=== PATIENT | male | born 1950 | race Caucasian/White ===

== ENCOUNTER → 2017-01-28 | Outpatient (CLI) | payer BC ==
[~2017-01-28] MED LIST: ACET650T49 PO; ALBUAER19 INH; AMLO-114 PO; ASPCH81 PO; ASPI81TA28 PO; ATOR-26 PO; CARV25TA2 PO; CHOL100027 PO; CRG125; CRG25 PO; DICL1GEL12 TOP; ERGO1CAP41 PO; FINA5TAB PO; FURO-85 PO; INSHNI SC; INSU100I17 SC; INSUINJ SC; INSUINJ12 SQ; IRBE-37 PO; IRBE1TAB48 PO; ISOS30TA35 PO; JALYN PO; LSX20 PO; LVMI SC; METH500T37 PO; NITR0.4S UT; NORT50CA PO; NRN600 PO; NRT/50 PO; NRV/10 PO; NVLG SC; NVLNI SC; OMEP20CA59 PO; OMEP20CA9 PO; PRS5 PO; SPRIN/30 INH; TIOTCAP INH; TRAM-453 PO; VNTHFA/IN INH
[2017-01-28 12:12] LABS: HEMATOCRIT 42.5 % (42-52); MEAN CELL VOLUME 87.3 fL (80-100); MEAN CORPUSCULAR HEMOGLOBIN 29.2 pg (25-34); MEAN CORPUSCULAR HGB CONC 33.4 g/dl (32-36); MEAN PLATELET VOLUME 11.4 fL (7.4-10.4); PLATELET COUNT 146 K/uL (130-400); RED BLOOD COUNT 4.87 M/uL (4.7-6.1); WHITE BLOOD COUNT 5.16 K/uL (4.8-10.8)
[2017-01-28 12:23] LABS: URINE APPEARANCE CLEAR (CLEAR); URINE BILIRUBIN NEG (NEG); URINE COLOR YELLOW; URINE NITRITE NEG (NEG); URINE PH 5.5 (4.5-7.5); URINE SPECIFIC GRAVITY 1.015 (1.000-1.030); UROBILINOGEN NEG (NEG)
[2017-01-28 12:33] LABS: MANUAL MICROSCOPIC REQUIRED? NO; REVIEW REQ? NO
[2017-01-28 12:41] LABS: ALT/SGPT 54 U/L (12-78); BLOOD UREA NITROGEN 40 mg/dl (7-18); CALCIUM 9.1 mg/dl (8.5-10.1); CARBON DIOXIDE 20 mmol/L (21-32); CHLORIDE 104 mmol/L (98-107); GLUCOSE 209 mg/dl (70-99); PHOSPHORUS 3.2 mg/dl (2.5-4.9); POTASSIUM 4.6 mmol/L (3.5-5.1); SODIUM 137 mmol/L (136-145)
[2017-01-28 12:51] LABS: ALKALINE PHOSPHATASE 156 U/L (45-117); AST/SGOT 39 U/L (15-37)
[2017-01-28 13:04] LABS: URINE PROTIEN/CREAT RATIO 1.9 (0-0.2); URINE TOTAL PROTEIN 227.7 mg/dl (0-11.9)
[2017-01-28 13:09] LABS: ESTIMATED AVERAGE GLUCOSE 140 mg/dl; HA1C FLAG Normal (Normal)
== END | disposition home or self-care (01) ==
LOC: C.LAB 07:32
PROVIDERS: ATTEND Internal Medicine Endocrinology, Diabetes & Metabolism
DX: E78.5 Hyperlipidemia, unspecified (principal); I12.9 Hypertensive chronic kidney disease with stage 1 through stage 4 chronic kidney disease, or unspecified chronic kidney disease; R80.9 Proteinuria, unspecified; E55.9 Vitamin D deficiency, unspecified; N18.4 Chronic kidney disease, stage 4 (severe); E10.22 Type 1 diabetes mellitus with diabetic chronic kidney disease

== ENCOUNTER → 2017-02-03 | Outpatient (CLI) | payer BC ==
--- NOTE | 2017-02-03 09:45 | DIAGNOSTIC IMAGING REPORT ---
CHEST CT WITHOUT CONTRAST CT DOSE: 1258.47 mGy.cm HISTORY: R91.8 Pulmonary nodules/lesions, multiple1 [id number] TECHNIQUE: Multiaxial CT images of the chest were performed without contrast. COMPARISON: Chest CT 01/31/2016, 05/08/2014, 10/11/2012. FINDINGS: The central airways are patent. No pleural effusions. No pneumothorax. There are few bibasilar linear densities suggesting scarring or subsegmental atelectasis. No new focal lung consolidations. Stable 4 mm nodule within the left lung apex on image 38. Stable 6 mm groundglass nodule within the left upper lobe on image 80. Stable 4 mm groundglass nodule within the left upper lobe on image 96. No new pulmonary nodules. Stable cirrhotic focus within the T11 vertebral body which likely represents a bone island. No mediastinal or hilar lymphadenopathy. Hepatic steatosis. The unenhanced spleen and adrenal glands appear unremarkable. Mild calcified plaque within the normal caliber thoracic aorta. IMPRESSION: No significant change compared to the prior studies dating back to the [address] Specifically, the subcentimeter nodules within the left upper lobe are again noted. Therefore, these are likely benign. However, an additional one-year follow-up is recommended for the dominant 6 mm nodule to exclude the less likely possibility of a small adenocarcinoma in situ. Electronically signed by: Herbert Alba M.D. 02/03/2017 9:44 AM Dictated Date/Time: 02/03/2017 9:35 AM
== END | disposition home or self-care (01) ==
LOC: C.CTS 09:20
PROVIDERS: ATTEND Internal Medicine Pulmonary Disease
DX: R91.8 Other nonspecific abnormal finding of lung field (principal)

== ENCOUNTER 2017-04-02 07:49 | Observation (INO) | payer BC ==
[~2017-04-02] VITALS: Ht 185.4 cm; Wt 160.0 kg
[~2017-04-02 07:49] MED LIST changes: -ACET650T49 PO; -ASPI81TA28 PO; -ATOR-26 PO; -CARV25TA2 PO; -CHOL100027 PO; -CRG25 PO; -DICL1GEL12 TOP; -ERGO1CAP41 PO; +ERGO500011 PO; -FINA5TAB PO; -FURO-85 PO; -INSHNI SC; -IRBE1TAB48 PO; -ISOS30TA35 PO; -LVMI SC; -NITR0.4S UT; -NORT50CA PO; -NRT/50 PO; -NRV/10 PO; -NVLG SC; -NVLNI SC; -OMEP20CA9 PO; -PRS5 PO; -SPRIN/30 INH; -VNTHFA/IN INH
[2017-04-02] MEDS ORDERED: MECLIZINE HCL 25 MG TAB PO STA (08:15)
[2017-04-02 08:26] LABS: BASO % 0.6 %; BASO ABS # 0.03 K/uL (0-0.2); COMPLETE YES; EOS % 3.5 %; HEMATOCRIT 40.2 % (42-52); IG% 0.2 %; LYMPH ABS # 1.03 K/uL (1.2-3.4); MEAN CELL VOLUME 86.5 fL (80-100); MEAN CORPUSCULAR HEMOGLOBIN 28.4 pg (25-34); MEAN CORPUSCULAR HGB CONC 32.8 g/dl (32-36); MEAN PLATELET VOLUME 10.7 fL (7.4-10.4); MONO % 9.7 %; PLATELET COUNT 125 K/uL (130-400); RED BLOOD COUNT 4.65 M/uL (4.7-6.1); WHITE BLOOD COUNT 5.16 K/uL (4.8-10.8)
[2017-04-02 08:39] LABS: PROTHROMBIN TIME (PATIENT) 10.6 SECONDS (9.0-12.0)
[2017-04-02 08:50] LABS: BUN/CREATININE RATIO 12.8 (10-20); CALCIUM 9.2 mg/dl (8.5-10.1); CREATININE 2.8 mg/dl (0.60-1.40); POTASSIUM 4.8 mmol/L (3.5-5.1)
[2017-04-02] MEDS ORDERED: FINA5TAB PO (09:26)
[2017-04-02] MEDS ORDERED: FURO-85 PO (09:26)
[2017-04-02] MEDS ORDERED: CARV25TA2 PO (09:26)
[2017-04-02] MEDS ORDERED: NORT50CA PO (09:26)
[2017-04-02] MEDS ORDERED: INSHNI SC (09:26)
[2017-04-02] MEDS ORDERED: LORAZEPAM 2 MG/ML 1 ML VIAL IV SCH (09:30)
--- NOTE | 2017-04-02 11:46 | DIAGNOSTIC IMAGING REPORT ---
MRA NECK WITHOUT CONTRAST CLINICAL HISTORY: Severe dizziness. History of atherosclerosis and hyperlipidemia. COMPARISON STUDY: No previous studies for comparison. FINDINGS: Noncontrast MR angiography of the neck was performed. The study is somewhat limited from a technical standpoint. There is no evidence of carotid or vertebral artery stenosis. IMPRESSION: No evidence of hemodynamically significant carotid or vertebral artery stenosis. Electronically signed by: Francois Stoddard M.D. 04/02/2017 11:45 AM Dictated Date/Time: 04/02/2017 11:43 AM
--- NOTE | 2017-04-02 11:49 | DIAGNOSTIC IMAGING REPORT ---
MRI brain/internal auditory canals BRAIN W/O FOR IAC CLINICAL HISTORY: severe dizziness mental status change TECHNIQUE: Multi axial MRI acquisition COMPARISON STUDY: None FINDINGS: Diffusion-weighted images are negative for an acute ischemic event. Findings of moderate cerebellar as well as cerebral atrophy. Internal auditory canals are unremarkable. Sella and parasellar regions are within normal limits. Moderate chronic small vessel change of aging. Ventricular system is midline. IMPRESSION: 1. Atrophy. 2. Moderate chronic small vessel change of aging. 3. Otherwise negative study 4. Internal artery canals are normal within limitations of an unenhanced scan Electronically signed by: Tano Branch M.D. 04/02/2017 11:48 AM Dictated Date/Time: 04/02/2017 11:44 AM
[2017-04-02] MEDS ORDERED: hydrOXYzine HCL 25 MG TAB PO STA (12:17)
--- NOTE | 2017-04-02 13:12 | EMERGENCY ROOM VISIT NOTE ---
History First contact with patient: 08:07 Chief Complaint: DIZZY Stated Complaint: DIZZY, HARD TIME WALKING Nursing Triage Summary: Pt was at physical therapy yesterday morning and developed dizziness and lightheadedness Pt reports "it happens randomly" Pt dizziness comes, pt reports he has a hard time walking and keeping his balance History of Present Illness The patient is a 67 year old male who presents to the Emergency Room with complaints of dizziness. The patient states that it started yesterday when he was at physical therapy for his back. They laid him down flat and the room started spinning. He states he is now dizzy with any position. He admits to nausea but denies any vomiting. The patient denies any headache, visual changes , chest pain or chest tightness. The patient denies any heart palpitations. The patient denies any recent URI symptoms. The patient does wear hearing aids. The patient has a history of hyperlipidemia and has stents in the femoral arteries. Review of Systems 10 system review was performed and was negative unless stated otherwise history of present illness. Past Medical/Surgical History Medical Problems: (1) Diabetic peripheral neuropathy associated with type 1 diabetes mellitus (2) History of diabetic ulcer of foot (3) Loss of sensation (4) Peripheral vascular disease (5) sepsis with uti (6) Status post partial amputation of foot Social History Smoking Status: Former Smoker Alcohol Use: none Drug Use: none Marital Status: Housing Status: lives with family Occupation Status: employed Current/Historical Medications Scheduled Acetaminophen (Arthritis Pain Relief), 1 TAB PO BID Albuterol Hfa (Ventolin Hfa), 2-4 PUFFS INH Q6H Amlodipine (Norvasc), 10 MG PO DAILY Aspirin (Aspirin Ec), 81 MG PO DAILY Atorvastatin (Lipitor), 80 MG PO HS Carvedilol (Coreg), 25 MG PO BID Cholecalciferol (Vitamin D 1000 Unit), 1,000 INTER.UNIT PO DAILY Diclofenac Sodium (Topical) (Voltaren 1% Top Gel), 4 GM TOP DAILY Ergocalciferol (Vitamin D 93533 Unit), 50,000 INTER.UNIT PO MONTHLY Finasteride (Proscar), 5 MG PO DAILY Furosemide (Lasix), 20 MG PO BID Insulin Detemir (Levemir), 65 UNITS SC HS Insulin Human NPH (Humulin N), 130 UNITS SC HS Irbesartan (Avapro), 150 MG PO DAILY Isosorbide Mononitrate Ext Rel (Imdur Ext Rel), 2 TAB PO DAILY Nitroglycerin (Nitrostat), 0.4 MG UT PRN Nortriptyline (Pamelor), 50 MG PO HS Omeprazole (Prilosec), 20 MG PO DAILY Tiotropium [place] (Spiriva Handihaler), 1 CAP INH DAILY Tramadol Hcl (Ultram), 50 MG PO Q8HR PRN Miscellaneous Medications Insulin Aspart (Novolog) Allergies Coded Allergies: No Known Allergies (Verified , NONE, 04/02/17) Physical Exam Vital Signs Date Time Temp Pulse Resp B/P Pulse Ox O2 Delivery O2 Flow Rate FiO2 04/02/17 11:49 86 20 182/84 94 Room Air 04/02/17 09:50 82 18 181/79 96 Room Air 04/02/17 08:16 96 04/02/17 07:54 36.7 82 20 165/75 96 Room Air Physical Exam GENERAL: Obese 67-year-old male appears in no acute distress. MENTAL STATUS: Alert and oriented 3. EYES: PERRLA. EOMs intact. EARS: Canals with hearing aids in place. NECK: Supple, no lymphadenopathy noted. No carotid bruits noted. LUNGS: Clear auscultation without wheezes rales or rhonchi. CARDIAC: Regular rate and rhythm without murmur. Pulses is full and equal throughout. ABDOMEN: Positive bowel sounds all 4 quadrants. Soft, nontender to palpation without organomegaly or masses. NEURO:Cranial nerves two through 12 intact. Cerebellar function intact with [id number]. Fine motor intact with alternating finger motions. Medical Decision & Procedures ER Provider Diagnostic Interpretation: MRI brain/internal auditory canals BRAIN W/O FOR IAC CLINICAL HISTORY: severe dizziness mental status change TECHNIQUE: Multi axial MRI acquisition COMPARISON STUDY: None FINDINGS: Diffusion-weighted images are negative for an acute ischemic event. Findings of moderate cerebellar as well as cerebral atrophy. Internal auditory canals are unremarkable. Sella and parasellar regions are within normal limits. Moderate chronic small vessel change of aging. Ventricular system is midline. IMPRESSION: 1. Atrophy. 2. Moderate chronic small vessel change of aging. 3. Otherwise negative study 4. Internal artery canals are normal within limitations of an unenhanced scan MRA NECK WITHOUT CONTRAST CLINICAL HISTORY: Severe dizziness. History of atherosclerosis and hyperlipidemia. COMPARISON STUDY: No previous studies for comparison. FINDINGS: Noncontrast MR angiography of the neck was performed. The study is somewhat limited from a technical standpoint. There is no evidence of carotid or vertebral artery stenosis. IMPRESSION: No evidence of hemodynamically significant carotid or vertebral artery stenosis. Electronically signed by: Francois Stoddard M.D. 04/02/2017 11:45 AM Dictated Date/Time: 04/02/2017 11:43 AM Laboratory Results 04/02/17 08:10 Red Blood Count 4.65, Mean Corpuscular Volume 86.5, Mean Corpuscular Hemoglobin 28.4, Mean Corpuscular Hemoglobin Concent 32.8, Mean Platelet Volume 10.7, Neutrophils (%) (Auto) 66.0, Lymphocytes (%) (Auto) 20.0, Monocytes (%) (Auto) 9.7, Eosinophils (%) (Auto) 3.5, Basophils (%) (Auto) 0.6, Neutrophils # (Auto) 3.41, Lymphocytes # (Auto) 1.03, Monocytes # (Auto) 0.50, Eosinophils # (Auto) 0.18, Basophils # (Auto) 0.03 04/02/17 08:10 Test 04/02/17 08:10 White Blood Count 5.16 K/uL (4.8-10.8) Red Blood Count 4.65 M/uL (4.7-6.1) Hemoglobin 13.2 g/dL (14.0-18.0) Hematocrit 40.2 % (42-52) Mean Corpuscular Volume 86.5 fL (80-100) Mean Corpuscular Hemoglobin 28.4 pg (25-34) Mean Corpuscular Hemoglobin Concent 32.8 g/dl (32-36) Platelet Count 125 K/uL (130-400) Mean Platelet Volume 10.7 fL (7.4-10.4) Neutrophils (%) (Auto) 66.0 % Lymphocytes (%) (Auto) 20.0 % Monocytes (%) (Auto) 9.7 % Eosinophils (%) (Auto) 3.5 % Basophils (%) (Auto) 0.6 % Neutrophils # (Auto) 3.41 K/uL (1.4-6.5) Lymphocytes # (Auto) 1.03 K/uL (1.2-3.4) Monocytes # (Auto) 0.50 K/uL (0.11-0.59) Eosinophils # (Auto) 0.18 K/uL (0-0.5) Basophils # (Auto) 0.03 K/uL (0-0.2) RDW Standard Deviation 44.2 fL (36.4-46.3) RDW Coefficient of Variation 14.1 % (11.5-14.5) Immature Granulocyte % (Auto) 0.2 % Immature Granulocyte # (Auto) 0.01 K/uL (0.00-0.02) Prothrombin Time 10.6 SECONDS (9.0-12.0) Prothromb Time International Ratio 1.0 (0.9-1.1) Activated Partial Thromboplast Time 25.4 SECONDS (21.0-31.0) Partial Thromboplastin Ratio 1.0 Anion Gap 9.0 mmol/L (3-11) Est Creatinine Clear Calc Drug Dose 40.2 ml/min Estimated GFR () 25.7 Estimated GFR (Non- 22.2 BUN/Creatinine Ratio 12.8 (10-20) Calcium Level 9.2 mg/dl (8.5-10.1) Medications Administered Medications (Trade) Dose Ordered Sig/Jackie Route Start Time Stop Time Status Last Admin Dose Admin Meclizine HCl (Antivert Tab) 25 mg NOW STAT PO 04/02/17 08:15 04/02/17 08:19 DC 04/02/17 08:21 25 MG Lorazepam (Ativan Inj) 1 mg UD IV 04/02/17 09:30 05/02/17 09:29 04/02/17 10:35 1 MG Hydroxyzine HCl (Vistaril Tab) 25 mg NOW STAT PO 04/02/17 12:17 04/02/17 12:18 DC 04/02/17 12:22 25 MG ECG Indication: other (() Rhythm: normal sinus Findings: RBBB ED Course The patient was evaluated. IV access was obtained. The patient's EMR and medication list were reviewed. The patient was placed on a monitor. EKG was ordered and interpreted by myself as above with new right bundle-branch block. CBC and differential, renal profile, coags were ordered. Labs are reviewed. The patient's white count was normal. Coags were normal. The patient hemoglobin and hematocrit were slightly low. The patient's BUN and creatinine were elevated. The patient was given Antivert 25 mg by mouth for dizziness. MRI of the brain for IAC's an MRA of the neck was ordered . The experimental technician called and stated that they could not be done with contrast due to the patient' s renal functions. I stated just to do the test without contrast. She also stated that the patient told her that he was claustrophobic. Therefore the patient will be given Ativan 1 mg IV 30 minutes prior to the MRI. MRI of the brain and MRA of the vertebral arteries were interpreted by the radiologist as above without any acute findings. The patient was reevaluated and was still very dizzy. The patient was given Vistaril by mouth. The patient's case was discussed with Dr. Alvarado who agreed with treatment plan. I reevaluation the patient felt slightly better when he was sitting but as soon as he went to stand he felt very dizzy and almost fell over. The hospitalist was consulted for admission. Impression Primary Impression: Vertigo Departure Information Dispostion Being Evaluated By Hospitalist Condition GOOD Referrals Thaddeus Peoples M.D. (PCP) Patient Instructions My [facility]
[2017-04-02] MEDS ORDERED: ALUMINUM/MAGNESIUM/SIMETH (MAALOX MAX) 30 ML UDC PO PRN (13:45)
[2017-04-02] MEDS ORDERED: TRAMADOL HCL 50 MG TAB PO PRN (13:45)
[2017-04-02] MEDS ORDERED: NITROGLYCERIN 0.4 MG SL PER TAB CHARGE UT SCH (13:45)
[2017-04-02] MEDS ORDERED: ACETAMINOPHEN 325 MG TAB PO PRN (13:45)
[2017-04-02] MEDS ORDERED: MAGNESIUM HYDROXIDE SUSP 30 ML UDC PO PRN (13:45)
[2017-04-02] MEDS ORDERED: NITROGLYCERIN 0.4 MG SL PER TAB CHARGE SL PRN (13:45)
[2017-04-02] MEDS ORDERED: ALBUTEROL HFA 8 GM INHALER INH PRN (13:45)
[2017-04-02] MEDS ORDERED: HydrALAZINE HCL 20 MG/ML VIAL IV. PRN (13:45)
[2017-04-02] MEDS ORDERED: POLYETHYLENE (MIRALAX) 17 GM PACK PO PRN (13:45)
[2017-04-02] MEDS ORDERED: ONDANSETRON INJ 2 MG/ML 2 ML VIAL IV PRN (13:45)
--- NOTE | 2017-04-02 14:12 | History and Physical ---
History & Physical Date & Time of Service: April 02, 2017 at 13:49 Chief Complaint: Dizzy, Hard Time Walking Primary Care Physician: Thaddeus Peoples M.D. History of Present Illness Source: patient, family, clinic records, hospital records Patient is a pleasant 67 y/o male, with PMHx of HTN, T2DM, COPD, DRAKE, HLD, PVD s /p right femoral stenting, CAD w/ CA in the , BPH, CKD stage IV, and GERD, who presented to the ED because of worsening dizziness. According to the patient , he has been experiencing dizziness for about 1 year now. Recently, over the last couple of days, the dizziness has worsened. Patient was at PT on Wednesday when they laid him flat and he experienced the dizziness. Yesterday, he tried to return to PT and the same situation occurred. Patient states it feels like the room is spinning. When he tries to walk, he feels off balance and stumbles. He admits to associated nausea with symptoms. He notes this only occurs when he changes positions quickly. He denies any recent illness. He has NOT spoken to a medical provider about these issues. His sugars have been well controlled. He periodically takes his BPs at home, which are usually around 175/70's. Patient denies any fever, chills, sweats, lightheadedness, vision changes, hearing changes, CP, palpitations, edema, SOB, wheezing, cough, abdominal pain, nausea, vomiting, diarrhea, urinary symptoms, melena, numbness/tingling, weakness, muscle/joint pain, anxiety/depression, active bleeding, or new skin discoloration/changes. Past Medical/Surgical History Medical Problems: HTN T2DM COPD DRAKE HLD PVD s/p right femoral stenting CAD w/ CA in the BPH CKD stage IV GERD Social History Smoking Status: Former Smoker Drug Use: none Marital Status: Occupational Status: employed Immunizations History of Influenza Vaccine: N/A Influenza Vaccine Date: Sep 02, 2008 History of Tetanus Vaccine?: No History of Pneumococcal: No Pneumococcal Date: May 03, 2009 History of Hepatitis B Vaccine: Unknown Multi-Drug Resistant Organisms History of MDRO: No Allergies Coded Allergies: No Known Allergies (Verified , NONE, 04/02/17) Home Medications Scheduled Acetaminophen (Arthritis Pain Relief), 1 TAB PO BID Albuterol Hfa (Ventolin Hfa), 2-4 PUFFS INH Q6H Amlodipine (Norvasc), 10 MG PO DAILY Aspirin (Aspirin Ec), 81 MG PO DAILY Atorvastatin (Lipitor), 80 MG PO HS Carvedilol (Coreg), 25 MG PO BID Cholecalciferol (Vitamin D 1000 Unit), 1,000 INTER.UNIT PO DAILY Diclofenac Sodium (Topical) (Voltaren 1% Top Gel), 4 GM TOP DAILY Ergocalciferol (Vitamin D 17520 Unit), 50,000 INTER.UNIT PO MONTHLY Finasteride (Proscar), 5 MG PO DAILY Furosemide (Lasix), 20 MG PO BID Insulin Detemir (Levemir), 65 UNITS SC HS Insulin Human NPH (Humulin N), 130 UNITS SC HS Irbesartan (Avapro), 150 MG PO DAILY Isosorbide Mononitrate Ext Rel (Imdur Ext Rel), 2 TAB PO DAILY Nitroglycerin (Nitrostat), 0.4 MG UT PRN Nortriptyline (Pamelor), 50 MG PO HS Omeprazole (Prilosec), 20 MG PO DAILY Tiotropium [place] (Spiriva Handihaler), 1 CAP INH DAILY Tramadol Hcl (Ultram), 50 MG PO Q8HR PRN Miscellaneous Medications Insulin Aspart (Novolog) Physical Exam Vital Signs Date Time Temp Pulse Resp B/P Pulse Ox O2 Delivery O2 Flow Rate FiO2 04/02/17 11:49 86 20 182/84 94 Room Air 04/02/17 09:50 82 18 181/79 96 Room Air 04/02/17 08:16 96 04/02/17 07:54 36.7 82 20 165/75 96 Room Air General Appearance: WD/WN, no apparent distress, + obese Head: normocephalic, atraumatic Eyes: normal inspection, PERRL ENT: hearing grossly normal, + pertinent finding (hearing aids in bilateral ear canals ) Neck: supple Respiratory/Chest: lungs clear, no respiratory distress, no accessory muscle use Cardiovascular: regular rate, rhythm Abdomen/GI: normal bowel sounds, non tender, soft Extremities/Musculoskelatal: no calf tenderness, no pedal edema Neurologic/Psych: alert, normal mood/affect, oriented x 3 Skin: normal color, warm/dry, no rash Diagnostics Laboratory Results Results Past 24 Hours Test 5/12/17 08:10 Range/Units White Blood Count 5.16 4.8-10.8 K/uL Red Blood Count 4.65 4.7-6.1 M/uL Hemoglobin 13.2 14.0-18.0 g/dL Hematocrit 40.2 42-52 % Mean Corpuscular Volume 86.5 80-100 fL Mean Corpuscular Hemoglobin 28.4 25-34 pg Mean Corpuscular Hemoglobin Concent 32.8 32-36 g/dl Platelet Count 125 130-400 K/uL Mean Platelet Volume 10.7 7.4-10.4 fL Neutrophils (%) (Auto) 66.0 % Lymphocytes (%) (Auto) 20.0 % Monocytes (%) (Auto) 9.7 % Eosinophils (%) (Auto) 3.5 % Basophils (%) (Auto) 0.6 % Neutrophils # (Auto) 3.41 1.4-6.5 K/uL Lymphocytes # (Auto) 1.03 1.2-3.4 K/uL Monocytes # (Auto) 0.50 0.11-0.59 K/uL Eosinophils # (Auto) 0.18 0-0.5 K/uL Basophils # (Auto) 0.03 0-0.2 K/uL RDW Standard Deviation 44.2 36.4-46.3 fL RDW Coefficient of Variation 14.1 11.5-14.5 % Immature Granulocyte % (Auto) 0.2 % Immature Granulocyte # (Auto) 0.01 0.00-0.02 K/uL Prothrombin Time 10.6 9.0-12.0 SECONDS Prothromb Time International Ratio 1.0 0.9-1.1 Activated Partial Thromboplast Time 25.4 21.0-31.0 SECONDS Partial Thromboplastin Ratio 1.0 Sodium Level 138 136-145 mmol/L Potassium Level 4.8 3.5-5.1 mmol/L Chloride Level 104 98-107 mmol/L Carbon Dioxide Level 25 21-32 mmol/L Anion Gap 9.0 3-11 mmol/L Blood Urea Nitrogen 36 7-18 mg/dl Creatinine 2.80 0.60-1.40 mg/dl Est Creatinine Clear Calc Drug Dose 40.2 ml/min Estimated GFR () 25.7 Estimated GFR (Non- 22.2 BUN/Creatinine Ratio 12.8 10-20 Random Glucose 237 70-99 mg/dl Calcium Level 9.2 8.5-10.1 mg/dl Diagnostic Radiology MRA NECK WITHOUT CONTRAST CLINICAL HISTORY: Severe dizziness. History of atherosclerosis and hyperlipidemia. COMPARISON STUDY: No previous studies for comparison. FINDINGS: Noncontrast MR angiography of the neck was performed. The study is somewhat limited from a technical standpoint. There is no evidence of carotid or vertebral artery stenosis. IMPRESSION: No evidence of hemodynamically significant carotid or vertebral artery stenosis. Electronically signed by: Francois Stoddard M.D. 04/02/2017 11:45 AM Dictated Date/Time: 04/02/2017 11:43 AM The status of this report is Signed. Draft = Not yet reviewed or approved by Radiologist. Signed = Reviewed and approved by Radiologist. MRI brain/internal auditory canals BRAIN W/O FOR IAC CLINICAL HISTORY: severe dizziness mental status change TECHNIQUE: Multi axial MRI acquisition COMPARISON STUDY: None FINDINGS: Diffusion-weighted images are negative for an acute ischemic event. Findings of moderate cerebellar as well as cerebral atrophy. Internal auditory canals are unremarkable. Sella and parasellar regions are within normal limits. Moderate chronic small vessel change of aging. Ventricular system is midline. IMPRESSION: 1. Atrophy. 2. Moderate chronic small vessel change of aging. 3. Otherwise negative study 4. Internal artery canals are normal within limitations of an unenhanced scan Electronically signed by: Tano Branch M.D. 04/02/2017 11:48 AM Dictated Date/Time: 04/02/2017 11:44 AM The status of this report is Signed. Draft = Not yet reviewed or approved by Radiologist. Signed = Reviewed and approved by Radiologist. EKG KYLER GOOD ID:[id number] 02-APR-2017 08:00:40 [facility] Normal sinus rhythm Right bundle branch block Abnormal ECG When compared with ECG of 28-DEC-2012 12:10, Premature atrial complexes are no longer Present Right bundle branch block is now Present 25mm/s 10mm/mV 150Hz 8.0 SP2 12SL 241 AMARI: 13 Referred by: Unconfirmed Vent. rate 86 BPM ND interval 182 ms QRS duration 152 ms QT/QTc 420/502 ms P-R-T axes 46 62 23 1950 (67 yr) Male Room: Loc:15 Pharmacy Technician Inpatient:JOSÉ HEIDI Test ind: Impression Assessment and Plan 67 y/o male, with PMHx of HTN, T2DM, COPD, DRAKE, HLD, PVD s/p right femoral stenting, CAD w/ CA in the , BPH, CKD stage IV, and GERD, who presented to the ED because of worsening dizziness. Dizziness, ?secondary to BPPV: - Brain MRI- unremarkable - Neck MRA- no significant carotid stenosis or vertebral artery stenosis - Meclizine 12.5 mg BID - Check orthostatic BPs - PT/OT evaluations - Consider neurology consult if symptoms worsen/do not improve CAD w/ CA in the : - Admit to tele for cardiac monitoring - EKG w/ new RBBB- repeat tomorrow AM and PRN w/ CP - Continue Coreg 25 mg BID, Lasix 20 mg BID, ASA 81 mg daily - Follows w/ Dr. Martinez HLD/PVD s/p right femoral stenting: Lipitor 80 mg daily HTN: - Amlodipine 10 mg daily, Avapro 150 mg daily - Hydralazine 10 mg IV PRN sbp >170 or DBP >100 CKD stage IV, baseline Cr. ~2.7- STABLE: - Follow PRP - Fistula placed in left arm- is NOT on HD- follows w/ Dr. Morales T2DM: - Continue 65 u HS - BSG ACHS w/ sliding insulin scale - ha1c 01/28/17- 6.5% COPD: Continue home inhalers DRAKE: CPAP BPH: Proscar 5 mg daily GERD: Protonix daily- resume Prilosec at discharge GI Prophylaxis: Maalox PRN, IV Zofran PRN, Colace and/or Milk of Mag PRN DVT prophylaxis: Heparin 5000 units SQ q12 hrs, KAIN and SCDs Code Status: LEVEL V, DNR Dispo: From home, lives w/ Level of Care Telemetry VTE Prophylaxis VTE Risk Assessment Done? Y/N: Yes Risk Level: Moderate Given or contraindicated: Unfractionated heparin SQ, T.E.D. Stockings, SCD's
[2017-04-02] MEDS ORDERED: IV FLUIDS COMPLETED PRN (14:30)
[2017-04-02 15:00] VITALS: BP 194/87; PULSE 87; TEMP 36.4; O2SAT 96; Ht 185.4 cm; Wt 160.0 kg
--- NOTE | 2017-04-02 15:14 | EMERGENCY ROOM VISIT NOTE ---
ED Visit Note First contact with patient: 08:07 Patient was seen by our PA/MULT AU MATIC OPERATOR. I was involved in the patient's care and did evaluate the patient myself. I was involved in the care throughout the ER stay. The patient presents with what sounds like vertigo or strokelike symptoms. Stroke workup so far is unremarkable. Despite medications and treatment, the patient is unable to stand, admission/observation is warranted. The on-call hospitalist was consulted.
[2017-04-02] MEDS ORDERED: GLUCAGON FOR INJ 1 MG VIAL SQ PRN (16:00)
[2017-04-02] MEDS ORDERED: DEXTROSE 50% 50 ML SYR IV PRN (16:00)
[2017-04-02] MEDS ORDERED: GLUCOSE 10 TABS/TUBE PO PRN (16:00)
[2017-04-02] MEDS ORDERED: GLUCOSE 40% GEL 15 GM TUBE PO PRN (16:00)
[2017-04-02 16:30] VITALS: BP 168/76
[2017-04-02] MEDS: INSULIN ASPART 100 UNITS/ML 3 ML PEN SC SCH ×2 (17:11→21:35)
[2017-04-02 19:42] VITALS: BP 160/79; PULSE 80; TEMP 36.5; O2SAT 92
[2017-04-02] MEDS: MECLIZINE HCL 12.5 MG TAB PO SCH (21:26)
[2017-04-02] MEDS: NORTRIPTYLINE HCL 25 MG CAP PO SCH (21:26)
[2017-04-02] MEDS: ATORVASTATIN 20 MG TAB PO SCH (21:26)
[2017-04-02] MEDS: FUROSEMIDE 20 MG TAB PO SCH (21:27)
[2017-04-02] MEDS: CARVEDILOL 25 MG TAB PO SCH (21:27)
[2017-04-02] MEDS: INSULIN DETEMIR FLEXPEN/FLEX TOUCH 100 UNITS/ML 3ML SC SCH (21:34)
[2017-04-02] MEDS: HEPARIN SOD 5000 UNIT/0.5 ML CARP SQ SCH (21:34)
[2017-04-02 21:50] VITALS: PULSE 90; O2SAT 94
[2017-04-02 23:43] VITALS: BP 178/95; PULSE 90; TEMP 36.9; O2SAT 94
[2017-04-03] VITALS (15 sets, daily range): BP systolic 128–182; BP diastolic 52–90; PULSE 74–95; TEMP 36–36.9; O2SAT 91–98
[2017-04-03] MEDS: DICLOFENAC SOD 1% GEL 100 GM TUBE EXT SCH (07:37)
[2017-04-03] MEDS: TIOTROPIUM BROMIDE 5 PUFF/90 MCG INH INH SCH (07:38)
[2017-04-03] MEDS: MECLIZINE HCL 12.5 MG TAB PO SCH ×3 (07:39→21:44)
[2017-04-03] MEDS: IRBESARTAN 150 MG TAB PO SCH (07:39)
[2017-04-03] MEDS: ISOSORBIDE MONONITRATE 30 MG TABCR PO SCH (07:40)
[2017-04-03] MEDS: CARVEDILOL 25 MG TAB PO SCH ×2 (07:40→21:43)
[2017-04-03] MEDS: FUROSEMIDE 20 MG TAB PO SCH ×2 (07:40→21:43)
[2017-04-03] MEDS: ASPIRIN 81 MG ECTAB PO SCH (07:40)
[2017-04-03] MEDS: PANTOprazole SOD 40 MG TAB PO SCH (07:41)
[2017-04-03] MEDS: FINASTERIDE 5 MG TAB PO SCH (07:41)
[2017-04-03] MEDS: AMLODIPINE BESYLATE 5 MG TAB PO SCH (07:41)
[2017-04-03] MEDS: CHOLECALCIFEROL 1000 INTER.UNIT TAB PO SCH (07:43)
[2017-04-03] MEDS: HEPARIN SOD 5000 UNIT/0.5 ML CARP SQ SCH ×2 (07:47→21:45)
[2017-04-03] MEDS: INSULIN ASPART 100 UNITS/ML 3 ML PEN SC SCH (07:59)
[2017-04-03 08:14] LABS: BUN/CREATININE RATIO 14.5 (10-20); CREATININE 2.9 mg/dl (0.60-1.40); MAGNESIUM 2.1 mg/dl (1.8-2.4); POTASSIUM 4.6 mmol/L (3.5-5.1)
[2017-04-03 08:27] LABS: BETA-HYDROXYBUTYRATE 1.49 mg/dL (0.2-2.81)
[2017-04-03 08:31] LABS: CALCIUM 9.4 mg/dl (8.5-10.1)
[2017-04-03] MEDS ORDERED: MECLIZINE HCL 12.5 MG TAB PO SCH (09:00)
[2017-04-03] MEDS: INSULIN HUMAN REGULAR SC SCH ×2 (13:30→16:49)
--- NOTE | 2017-04-03 14:56 | Hospitalist Progress Note ---
Hospitalist Progress Note Date of Service April 03, 2017. Subjective Pt evaluation today including: conversation w/ patient, chart review reports dizziness at PT. None since admit. Medications Medications (Trade) Dose Ordered Sig/Jackie Route Start Time Stop Time Status Last Admin Dose Admin Lorazepam (Ativan Inj) 1 mg UD IV 04/02/17 09:30 05/02/17 09:29 04/02/17 10:35 1 MG Hydroxyzine HCl (Vistaril Tab) 25 mg NOW STAT PO 04/02/17 12:17 04/02/17 12:18 DC 04/02/17 12:22 25 MG Heparin Sodium (Porcine) (Heparin Sq 5000 Unit/0.5ml) 5,000 unit Q12 SQ 04/02/17 21:00 05/02/17 20:59 04/03/17 07:47 5,000 UNIT Amlodipine Besylate (Norvasc Tab) 10 mg DAILY PO 04/03/17 09:00 05/03/17 08:59 04/03/17 07:41 10 MG Aspirin (Ecotrin Tab) 81 mg DAILY PO 04/03/17 09:00 05/03/17 08:59 04/03/17 07:40 81 MG Atorvastatin Calcium (Lipitor Tab) 80 mg HS PO 04/02/17 21:00 05/02/17 20:59 04/02/17 21:26 80 MG Carvedilol (Coreg Tab) 25 mg BID PO 04/02/17 21:00 05/02/17 20:59 04/03/17 07:40 25 MG Cholecalciferol (Vitamin D Tab) 1,000 inter.unit DAILY PO 04/03/17 09:00 05/03/17 08:59 04/03/17 07:43 1,000 INTER.UNIT Finasteride (Proscar Tab) 5 mg DAILY PO 04/03/17 09:00 05/03/17 08:59 04/03/17 07:41 5 MG Furosemide (Lasix Tab) 20 mg BID PO 04/02/17 21:00 05/02/17 20:59 04/03/17 07:40 20 MG Irbesartan (Avapro Tab) 150 mg DAILY PO 04/03/17 09:00 05/03/17 08:59 04/03/17 07:39 150 MG Isosorbide Mononitrate (Imdur Ext Rel Tab) 60 mg DAILY PO 04/03/17 09:00 05/03/17 08:59 04/03/17 07:40 60 MG Nortriptyline HCl (Pamelor Cap) 50 mg HS PO 04/02/17 21:00 05/02/17 20:59 04/02/17 21:26 50 MG Tiotropium [place] (Spiriva Handihaler Inhaler) 30 puff DAILY INH 04/03/17 09:00 05/03/17 08:59 04/03/17 07:38 30 PUFF Insulin Detemir (Levemir Flexpen/ FlexTouch) 65 unit HS SC 04/02/17 21:00 05/02/17 20:59 04/02/17 21:34 65 UNIT Insulin Aspart (novoLOG ASPART) SLIDING SCALE G... ACHS SC 04/02/17 16:15 05/02/17 16:14 04/03/17 07:59 10 UNITS Pantoprazole Sodium (Protonix Tab) 40 mg QAM PO 04/03/17 09:00 05/03/17 08:59 04/03/17 07:41 40 MG Meclizine HCl (Antivert Tab) 25 mg TID PO 04/02/17 21:00 05/02/17 20:59 04/03/17 07:39 25 MG Objective Vital Signs Date Time Temp Pulse Resp B/P Pulse Ox O2 Delivery O2 Flow Rate FiO2 04/03/17 07:36 174/77 155/66 04/03/17 07:31 36.8 82 18 182/72 93 Room Air 89 89 04/03/17 04:00 Room Air 04/03/17 03:41 95 22 163/83 93 CPAP 04/03/17 03:38 93 20 172/81 95 CPAP 04/03/17 03:35 36.9 89 20 175/90 95 CPAP 04/02/17 23:59 CPAP 04/02/17 23:43 36.9 90 22 178/95 94 CPAP 04/02/17 23:43 36.9 90 22 178/95 94 CPAP 04/02/17 21:50 90 94 04/02/17 21:50 90 20 94 CPAP 21 04/02/17 20:00 Room Air 04/02/17 19:42 36.5 80 20 160/79 92 Room Air 04/02/17 16:30 168/76 04/02/17 16:00 Room Air 04/02/17 15:00 36.4 87 16 194/87 96 Room Air 04/02/17 14:07 81 20 191/90 94 Room Air 04/02/17 11:49 86 20 182/84 94 Room Air 04/02/17 09:50 82 18 181/79 96 Room Air Physical Exam General Appearance: WD/WN, + obese Eyes: normal inspection ENT: normal ENT inspection Neck: supple, no adenopathy Respiratory/Chest: chest non-tender, lungs clear Cardiovascular: regular rate, rhythm, no murmur Abdomen: normal bowel sounds Extremities: normal range of motion, + pedal edema 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, alert, normal mood/affect Skin: normal color Laboratory Results Last 24 Hours Test 04/02/17 14:53 04/02/17 16:24 04/02/17 20:57 04/03/17 06:33 Bedside Glucose 245 mg/dl 251 mg/dl 378 mg/dl 347 mg/dl Test 04/03/17 07:20 Sodium Level 135 mmol/L Potassium Level 4.6 mmol/L Chloride Level 102 mmol/L Carbon Dioxide Level 23 mmol/L Anion Gap 10.0 mmol/L Blood Urea Nitrogen 42 mg/dl Creatinine 2.90 mg/dl Est Creatinine Clear Calc Drug Dose 38.6 ml/min Estimated GFR () 24.6 Estimated GFR (Non- 21.3 BUN/Creatinine Ratio 14.5 Random Glucose 378 mg/dl Calcium Level 9.4 mg/dl Magnesium Level 2.1 mg/dl Beta-Hydroxybutyric Acid 1.49 mg/dL Diagnostic Results MRI brain/internal auditory canals BRAIN W/O FOR IAC CLINICAL HISTORY: severe dizziness mental status change TECHNIQUE: Multi axial MRI acquisition COMPARISON STUDY: None FINDINGS: Diffusion-weighted images are negative for an acute ischemic event. Findings of moderate cerebellar as well as cerebral atrophy. Internal auditory canals are unremarkable. Sella and parasellar regions are within normal limits. Moderate chronic small vessel change of aging. Ventricular system is midline. IMPRESSION: 1. Atrophy. 2. Moderate chronic small vessel change of aging. 3. Otherwise negative study 4. Internal artery canals are normal within limitations of an unenhanced scan Electronically signed by: Tano Branch M.D. MRA NECK WITHOUT CONTRAST CLINICAL HISTORY: Severe dizziness. History of atherosclerosis and hyperlipidemia. COMPARISON STUDY: No previous studies for comparison. FINDINGS: Noncontrast MR angiography of the neck was performed. The study is somewhat limited from a technical standpoint. There is no evidence of carotid or vertebral artery stenosis. IMPRESSION: No evidence of hemodynamically significant carotid or vertebral artery stenosis. Electronically signed by: Francois Stoddard M.D. 04/02/2017 11:45 AM Dictated Date/Time: 04/02/2017 11:43 AM Assessment and Plan 67 y/o male, with PMHx of HTN, T2DM, COPD, DRAKE, HLD, PVD s/p right femoral stenting, CAD w/ PR in the , BPH, CKD stage IV, and GERD, who presented to the ED because of worsening dizziness. Dizziness, ?secondary to BPPV: - Brain MRI- unremarkable - Neck MRA- no significant carotid stenosis or vertebral artery stenosis - Meclizine 12.5 mg BID - Check orthostatic BPs - Mild orthostatsis. Consider starting Midodrine 2.5mg tid if it persists with PT. Consider EP eval. - PT/OT evaluations - Consider neurology consult if symptoms worsen/do not improve CAD w/ PR in the : - Admit to tele for cardiac monitoring - EKG w/ new RBBB- repeat tomorrow AM and PRN w/ CP - Continue Coreg 25 mg BID, Lasix 20 mg BID, ASA 81 mg daily - Follows w/ Dr. Martinez HLD/PVD s/p right femoral stenting: Lipitor 80 mg daily HTN: - Amlodipine 10 mg daily, Avapro 150 mg daily - Hydralazine 10 mg IV PRN sbp >170 or DBP >100 CKD stage IV, baseline Cr. ~2.7- STABLE: - Follow PRP - Fistula placed in left arm- is NOT on HD- follows w/ Dr. Morales T2DM: - Continue 65 u HS - BSG ACHS w/ sliding insulin scale - ha1c 01/28/17- 6.5% - restart Novolin R with meals TID at 30 units (pt takes 45 units). Adjust dose based on BS. - Take Levemir and Novolin N at home. Will start only Levemir here and monitor sugars and if needed can increase dose of Levemir COPD: Continue home inhalers DRAKE: CPAP BPH: Proscar 5 mg daily GERD: Protonix daily- resume Prilosec at discharge GI Prophylaxis: Maalox PRN, IV Zofran PRN, Colace and/or Milk of Mag PRN DVT prophylaxis: Heparin 5000 units SQ q12 hrs, KAIN and SCDs Code Status: LEVEL V, DNR Dispo: From home, lives w/
[2017-04-03] MEDS: NORTRIPTYLINE HCL 25 MG CAP PO SCH (21:42)
[2017-04-03] MEDS: ATORVASTATIN 20 MG TAB PO SCH (21:42)
[2017-04-03] MEDS: INSULIN DETEMIR FLEXPEN/FLEX TOUCH 100 UNITS/ML 3ML SC SCH (21:45)
[2017-04-04 03:29] VITALS: BP 133/76; PULSE 76; TEMP 36.6; O2SAT 94
[2017-04-04 07:44] LABS: BUN/CREATININE RATIO 16.5 (10-20); CALCIUM 9.1 mg/dl (8.5-10.1); CREATININE 2.8 mg/dl (0.60-1.40); MAGNESIUM 2.3 mg/dl (1.8-2.4); POTASSIUM 4.4 mmol/L (3.5-5.1)
[2017-04-04] MEDS: INSULIN HUMAN REGULAR SC SCH ×2 (08:00→11:36)
[2017-04-04] MEDS: HEPARIN SOD 5000 UNIT/0.5 ML CARP SQ SCH (08:01)
[2017-04-04] MEDS: DICLOFENAC SOD 1% GEL 100 GM TUBE EXT SCH (08:03)
[2017-04-04] MEDS: TIOTROPIUM BROMIDE 5 PUFF/90 MCG INH INH SCH (08:04)
[2017-04-04] MEDS: MECLIZINE HCL 12.5 MG TAB PO SCH ×2 (08:04→13:40)
[2017-04-04] MEDS: CARVEDILOL 25 MG TAB PO SCH (08:05)
[2017-04-04] MEDS: IRBESARTAN 150 MG TAB PO SCH (08:05)
[2017-04-04] MEDS: ASPIRIN 81 MG ECTAB PO SCH (08:06)
[2017-04-04] MEDS: ISOSORBIDE MONONITRATE 30 MG TABCR PO SCH (08:06)
[2017-04-04] MEDS: FUROSEMIDE 20 MG TAB PO SCH (08:07)
[2017-04-04] MEDS: AMLODIPINE BESYLATE 5 MG TAB PO SCH (08:07)
[2017-04-04] MEDS: FINASTERIDE 5 MG TAB PO SCH (08:08)
[2017-04-04] MEDS: CHOLECALCIFEROL 1000 INTER.UNIT TAB PO SCH (08:08)
[2017-04-04] MEDS: PANTOprazole SOD 40 MG TAB PO SCH (08:08)
[2017-04-04 08:35] VITALS: BP_SYST 126; BP_SYST 151; BP_SYST 160; BP_DIAS 71; BP_DIAS 78; BP_DIAS 83; PULSE 80; PULSE 81; PULSE 82; TEMP 36.9; O2SAT 91
[2017-04-04 09:22] LABS: BASO % 0.8 %; BASO ABS # 0.04 K/uL (0-0.2); COMPLETE YES; EOS % 2.9 %; IG% 0.4 %; LYMPH ABS # 1.06 K/uL (1.2-3.4); MEAN CELL VOLUME 85.7 fL (80-100); MEAN CORPUSCULAR HEMOGLOBIN 28.2 pg (25-34); MEAN CORPUSCULAR HGB CONC 32.9 g/dl (32-36); MEAN PLATELET VOLUME 10.9 fL (7.4-10.4); MONO % 11.4 %; NEUT % 62.5 %; PLATELET COUNT 123 K/uL (130-400); WHITE BLOOD COUNT 4.82 K/uL (4.8-10.8)
[2017-04-04 12:30] VITALS: BP 103/68; PULSE 94; TEMP 36.8; O2SAT 93
--- NOTE | 2017-04-04 13:58 | Discharge Instructions ---
Discharge Instructions Date of Service April 04, 2017. Admission Reason for Admission: Vertigo Discharge Discharge Diagnosis / Problem: Orthostatic hypotension Discharge Goals Goal(s): Decrease discomfort, Improve function Activity Recommendations Activity Limitations: as noted below Lifting Limitations: gradually increase as tolerated Exercise/Sports Limitations: gradually increase as tolerated May Resume Sexual Activity: when tolerated Shower/Bathe: no limitations Driving or Machine Use: no limitations . Instructions / Follow-Up Instructions / Follow-Up Endocrinology and PCP in one week Current Hospital Diet Patient's current hospital diet: AHA Diet (Heart Healthy), Diabetes Type 2 Diet Discharge Diet Recommended Diet: Diabetes Type 2 Diet Pending Studies Studies pending at discharge: no Laboratory Results Hemoglobin A1c Test 04/04/17 06:55 Range/Units Medical Emergencies . Who to Call and When: Medical Emergencies: If at any time you feel your situation is an emergency, please call 911 immediately. . Non-Emergent Contact Non-Emergency issues call your: Primary Care Provider Call Non-Emergent contact if: you have a fever . Past History Medical & Surgical History: (1) Diabetic peripheral neuropathy associated with type 1 diabetes mellitus (2) Vertigo (3) Peripheral vascular disease . "Provider Documentation" section prepared by Shanti Krishnamurthy. . VTE Core Measure Inpt VTE Proph given/why not?: Unfractionated heparin SEVEN, T.E.D. Stockings, SCD 's
[2017-04-04 14:09] VITALS: BP 103/68; PULSE 94; TEMP 36.8; O2SAT 93
[2017-04-04] MEDS ORDERED: MIDODRINE 2.5 MG TAB PO SCH (17:00)
[2017-04-05 06:25] LABS: ESTIMATED AVERAGE GLUCOSE 140 mg/dl; HA1C FLAG Normal (Normal)
--- NOTE | 2017-04-15 15:16 | Discharge Summary ---
Discharge Summary Date of Service April 15, 2017. (Nida Mclaughlin PA-C) Discharge Summary Admission Date: April 02, 2017 at 13:48 Discharge Date: April 04, 2017 Discharge Disposition: Home Principal Diagnosis: Vertigo and Orthostatic Hypotension Problems/Secondary Diagnoses: 1. Hypertension 2. T2DM 3. DRAKE 4. PVD S/P R Femoral Stent 5. CAD S/P ID (90s) 6. BPH 7. CKD Stage IV 8. GERD Immunizations: Have You Had Influenza Vaccine: N/A Influenza Vaccine Date: Sep 02, 2008 History of Tetanus Vaccine?: No History of Pneumococcal: No Pneumococcal Date: May 03, 2009 History of Hepatitis B Vaccine: Unknown Procedures: 1. MRA NECK WITHOUT CONTRAST FINDINGS: Noncontrast MR angiography of the neck was performed. The study is somewhat limited from a technical standpoint. There is no evidence of carotid or vertebral artery stenosis. IMPRESSION: No evidence of hemodynamically significant carotid or vertebral artery stenosis. 2. MRI brain/internal auditory canals BRAIN W/O FOR IAC FINDINGS: Diffusion-weighted images are negative for an acute ischemic event. Findings of moderate cerebellar as well as cerebral atrophy. Internal auditory canals are unremarkable. Sella and parasellar regions are within normal limits. Moderate chronic small vessel change of aging. Ventricular system is midline. IMPRESSION: 1. Atrophy. 2. Moderate chronic small vessel change of aging. 3. Otherwise negative study 4. Internal artery canals are normal within limitations of an unenhanced scan Consultations: 1. PT/OT (Nida Mclaughlin PA-C) Discharge Disposition: Home Principal Diagnosis: Dizziness Problems/Secondary Diagnoses: Diabetes mellitus PAD HLD (Shanti Krishnamurthy M.D.) Medication Reconciliation Continued Medications: Acetaminophen (Arthritis Pain Relief) 650 Mg Tab 1 TAB PO BID Albuterol Hfa (Ventolin Hfa) 200 Puffs/14304 Mcg Aers 2-4 PUFFS INH Q6H, #1 INHALER Amlodipine (Norvasc) 10 Mg Tab 10 MG PO DAILY, 0 Refills Aspirin (Aspirin Ec) 81 Mg Tab 81 MG PO DAILY Atorvastatin (Lipitor) 80 Mg Tab 80 MG PO HS, TAB Carvedilol (Coreg) 25 Mg Tab 25 MG PO BID, TAB Cholecalciferol (Vitamin D 1000 Unit) 1,000 Unit Cap 1000 INTER.UNIT PO DAILY, CAP Diclofenac Sodium (Topical) (Voltaren 1% Top Gel) 1 % Gel 4 GM TOP DAILY apply 4gm to knees daily Ergocalciferol (Vitamin D 19531 Unit) 50,000 Unit Cap 42200 INTER.UNIT PO MONTHLY Finasteride (Proscar) 5 Mg Tab 5 MG PO DAILY, TAB Furosemide (Lasix) 20 Mg Tab 20 MG PO BID, TAB Insulin Aspart (Novolog) 100 Units/Ml Inj SLIDING SCALE. starts at 45units per pt Insulin Detemir (Levemir) 100 Units/Ml Inj 65 UNITS SC HS Irbesartan (Avapro) 150 Mg Tab 150 MG PO DAILY, TAB Isosorbide Mononitrate Ext Rel (Imdur Ext Rel) 30 Mg Tabcr 2 TAB PO DAILY, TAB Nitroglycerin (Nitrostat) 0.4 Mg Sub 0.4 MG UT PRN, BTL Nortriptyline (Pamelor) 50 Mg Cap 50 MG PO HS, CAP Omeprazole (Prilosec) 20 Mg Capcr 20 MG PO DAILY Tiotropium [place] (Spiriva Handihaler) 30 Puff/540 Mcg Aerp 1 CAP INH DAILY, CAP Tramadol Hcl (Ultram) 50 Mg Tab 50 MG PO Q8HR PRN, TAB PRN PAIN Discontinued Medications: Insulin Human NPH (Humulin N) 100 Units/Ml Susp 130 UNITS SC HS Discharge Exam Physical Exam - 04/03/2017 Per provider during admission General Appearance: WD/WN, + obese Eyes: normal inspection ENT: normal ENT inspection Neck: supple, no adenopathy Respiratory/Chest: chest non-tender, lungs clear Cardiovascular: regular rate, rhythm, no murmur Abdomen: normal bowel sounds Extremities: normal range of motion, + pedal edema 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, alert, normal mood/affect Skin: normal color (Nida Mclaughlin, PA-C) Physical Exam: General Appearance: WD/WN, no apparent distress Eyes: normal inspection, PERRL, EOMI ENT: normal ENT inspection Neck: supple, no adenopathy Respiratory/Chest: chest non-tender, lungs clear Cardiovascular: regular rate, rhythm Abdomen / GI: normal bowel sounds, non tender, soft Extremities: normal inspection, + pedal edema 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 According to the patient, he has been experiencing dizziness for about 1 year now. Recently, over the last couple of days, the dizziness has worsened. Patient was at PT on Wednesday when they laid him flat and he experienced the dizziness. Yesterday, he tried to return to PT and the same situation occurred. Patient states it feels like the room is spinning. When he tries to walk, he feels off balance and stumbles. He admits to associated nausea with symptoms. He notes this only occurs when he changes positions quickly. He denies any recent illness. He has NOT spoken to a medical provider about these issues. His sugars have been well controlled. He periodically takes his BPs at home, which are usually around 175/70's. Patient denies any fever, chills, sweats, lightheadedness, vision changes, hearing changes, CP, palpitations, edema, SOB, wheezing, cough, abdominal pain, nausea, vomiting, diarrhea, urinary symptoms, melena, numbness/tingling, weakness, muscle/joint pain, anxiety/depression, active bleeding, or new skin discoloration/changes. HOSPITAL COURSE: Mr. Albert was admitted for chronic dizziness that was recently exacerbated prior to admission. He did not exhibit further dizziness while admitted. Please see procedures for imaging results which were largely unremarkable. Orthostatic BP significant for orthostasis at 160/83 with 80 bpm supine, 151/78 with 82 bpm sitting, and 126/71 with 81 bpm standing. Consideration for midodrine 2.5 mg TID if these symptoms would continue after discharge. Can also consider neurology referral if the symptoms would worsen in the future. OF NOTE: This patient was not seen or evaluated by myself during this admission. This discharge summary was generated for continuity of care for the PCP's review and for assistance if future admissions are necessary. Total Time Spent: Greater than 30 minutes This includes examination of the patient, discharge planning, medication reconciliation, and communication with other providers. (Nida Mclaughlin, ENAC) Admitted with dizziness. Diagnosed with postural hypotension. Started on midodrine. Recommended follow up with pcp. DM2: Discontinued NPH insulin and recommended to continue only with Lantus. HLD: Continue with statin PAD: Follow up with vascular surgery Total Time Spent: Greater than 30 minutes (Shanti Krishnamurthy M.D.) Discharge Instructions Please refer to the electronic Patient Visit Report (Discharge Instructions) for additional information. (Nida Mclaughlin PA-C) Follow-Up PCP Vascular surgery (Shanti Krishnamurthy M.D.) Additional Copies To Thaddeus Peoples M.D.
[2017-04-30] MEDS ORDERED: ERGOCALCIFEROL 50,000 INTER.UNIT CAP PO SCH (09:00)
[2017-06-15] MEDS ORDERED: SPRIN/30 INH (09:26)
[2017-06-15] MEDS ORDERED: ASPI81TA28 PO (09:26)
[2017-06-15] MEDS ORDERED: DICL1GEL12 TOP (09:26)
[2017-06-15] MEDS ORDERED: NVLG SC (09:26)
[2017-06-15] MEDS ORDERED: ATOR-26 PO (09:26)
[2017-06-15] MEDS ORDERED: VNTHFA/IN INH (09:26)
[2017-06-15] MEDS ORDERED: LVMI SC (09:26)
[2017-06-15] MEDS ORDERED: ACET650T49 PO (09:26)
[2017-06-15] MEDS ORDERED: CHOL100027 PO (12:49)
[2017-06-15] MEDS ORDERED: ISOS30TA35 PO (12:49)
[2017-06-15] MEDS ORDERED: NITR0.4S UT (12:49)
== END 2017-04-04 14:38 | disposition home or self-care (01) ==
LOC: ENRESERVTM → ENRESERVDT → C.EDB 07:51 → C.2T 13:48
PROVIDERS: ADMIT Hospitalist; ATTEND Hospitalist
DX: R42 Dizziness and giddiness (principal); I95.1 Orthostatic hypotension; I12.9 Hypertensive chronic kidney disease with stage 1 through stage 4 chronic kidney disease, or unspecified chronic kidney disease; E11.22 Type 2 diabetes mellitus with diabetic chronic kidney disease; G47.33 Obstructive sleep apnea (adult) (pediatric); I73.9 Peripheral vascular disease, unspecified; I25.10 Atherosclerotic heart disease of native coronary artery without angina pectoris; I25.2 Old myocardial infarction; N40.0 Benign prostatic hyperplasia without lower urinary tract symptoms; N18.4 Chronic kidney disease, stage 4 (severe); K21.9 Gastro-esophageal reflux disease without esophagitis; Z87.891 Personal history of nicotine dependence; Z79.899 Other long term (current) drug therapy; Z79.82 Long term (current) use of aspirin; Z79.4 Long term (current) use of insulin

== ENCOUNTER → 2017-04-27 | Outpatient (CLI) | payer BC ==
[~2017-04-27] MED LIST changes: +ACET650T49 PO; -ALBUAER19 INH; -ASPCH81 PO; +ASPI81TA28 PO; +ATOR-26 PO; +CARV25TA2 PO; +CHOL100027 PO; -CRG125; +CRG25 PO; +DICL1GEL12 TOP; +FINA5TAB PO; +FURO-85 PO; -INSU100I17 SC; -INSUINJ SC; -INSUINJ12 SQ; +IRBE1TAB48 PO; +ISOS30TA35 PO; -JALYN PO; +LVMI SC; -METH500T37 PO; +NITR0.4S UT; +NORT50CA PO; -NRN600 PO; +NRT/50 PO; +NRV/10 PO; +NVLG SC; +NVLNI SC; +OMEP20CA9 PO; +PRS5 PO; +SPRIN/30 INH; -TIOTCAP INH; +VNTHFA/IN INH
[2017-04-27 12:18] LABS: HEMATOCRIT 40.5 % (42-52); MEAN CELL VOLUME 87.7 fL (80-100); MEAN CORPUSCULAR HEMOGLOBIN 28.1 pg (25-34); MEAN CORPUSCULAR HGB CONC 32.1 g/dl (32-36); MEAN PLATELET VOLUME 11.2 fL (7.4-10.4); PLATELET COUNT 123 K/uL (130-400); RED BLOOD COUNT 4.62 M/uL (4.7-6.1); WHITE BLOOD COUNT 4.47 K/uL (4.8-10.8)
[2017-04-27 12:32] LABS: BLOOD UREA NITROGEN 43 mg/dl (7-18); BUN/CREATININE RATIO 12.5 (10-20); CARBON DIOXIDE 23 mmol/L (21-32); CHLORIDE 105 mmol/L (98-107); GLUCOSE 169 mg/dl (70-99); POTASSIUM 4.5 mmol/L (3.5-5.1); SODIUM 140 mmol/L (136-145)
[2017-04-27 12:33] LABS: PHOSPHORUS 3.3 mg/dl (2.5-4.9)
[2017-04-27 12:34] LABS: URINE PROTIEN/CREAT RATIO 1.3 (0-0.2); URINE TOTAL PROTEIN 165.5 mg/dl (0-11.9)
[2017-04-27 12:36] LABS: CALCIUM 8.9 mg/dl (8.5-10.1)
[2017-04-27 12:37] LABS: URINE APPEARANCE CLEAR (CLEAR); URINE BILIRUBIN NEG (NEG); URINE COLOR YELLOW; URINE NITRITE NEG (NEG); URINE SPECIFIC GRAVITY 1.018 (1.000-1.030); UROBILINOGEN NEG (NEG)
[2017-04-27 12:44] LABS: MANUAL MICROSCOPIC REQUIRED? NO; REVIEW REQ? NO
[2017-04-27 13:05] LABS: ESTIMATED AVERAGE GLUCOSE 143 mg/dl; HA1C FLAG Normal (Normal)
== END | disposition home or self-care (01) ==
LOC: C.LABBFT 07:38
PROVIDERS: ATTEND Physician Assistant
DX: I10 Essential (primary) hypertension (principal); R80.9 Proteinuria, unspecified; E55.9 Vitamin D deficiency, unspecified; N18.4 Chronic kidney disease, stage 4 (severe); E10.9 Type 1 diabetes mellitus without complications

== ENCOUNTER → 2017-06-03 | Outpatient (CLI) | payer BC ==
[~2017-06-03] MED LIST changes: +ERGO1CAP41 PO; -ERGO500011 PO
--- NOTE | 2017-06-03 09:06 | DIAGNOSTIC IMAGING REPORT ---
MRI LUMBAR SPINE W/O CONTRAST CLINICAL HISTORY: Persistent low back pain TECHNIQUE: Sagittal and axial T1, T2 and STIR images were obtained. COMPARISON STUDY: August 2009 OBSERVATIONS: There is a focal fatty rest/hemangioma involving the L2 vertebral body. L1-2: No disc protrusions or extrusions. No evidence of spinal canal or neural foraminal compromise. L2-3: No disc protrusions or extrusions. No evidence of spinal canal or neural foraminal compromise. L3-4: There is a mild circumferential disc bulge. There is minimal triangular spinal canal narrowing. No focal herniations are visualized. L4-5: There is a circumferential disc bulge with moderate spinal stenosis. There is minor foraminal narrowing. L5-S1: There is a mild circumferential disc bulge. There is minimal spinal canal narrowing. There is mild facet joint arthropathy. There is minor foraminal narrowing The conus medullaris and cauda equina appear normal. IMPRESSION: Multilevel spondylitic changes. The findings are most severe at the L4-5 level where there is moderate secondary spinal stenosis. The examination remains similar to the prior August 2009 study Electronically signed by: Francois Stoddard M.D. 06/03/2017 9:05 AM Dictated Date/Time: 06/03/2017 9:01 AM
== END | disposition home or self-care (01) ==
LOC: C.MRI 07:58
PROVIDERS: ATTEND Orthopaedic Surgery Orthopaedic Surgery of the Spine
DX: M51.9 Unspecified thoracic, thoracolumbar and lumbosacral intervertebral disc disorder (principal); Z79.899 Other long term (current) drug therapy; M54.5 Low back pain; M51.27 Other intervertebral disc displacement, lumbosacral region

== ENCOUNTER 2017-06-15 18:32 | Emergency (ER) | payer BC ==
[~2017-06-15] VITALS: Ht 185.4 cm; Wt 157.0 kg
[~2017-06-15 18:32] MED LIST changes: -CRG25 PO; -IRBE1TAB48 PO; -LSX20 PO; -NRT/50 PO; -NRV/10 PO; -NVLNI SC; -OMEP20CA9 PO; -PRS5 PO
[2017-06-15 18:42] VITALS: TEMP 36.3; Ht 185.4 cm; Wt 157.0 kg
[2017-06-15] MEDS ORDERED: SODIUM CHLORIDE 0.9% 500ML 500 ML IV STA (18:42)
--- NOTE | 2017-06-15 18:50 | EMERGENCY ROOM VISIT NOTE ---
History Report prepared by Ava: Jaylyn Campbell Under the Supervision of: Dr. Josr Smith D.O. First contact with patient: 18:33 Chief Complaint: HYPOGLYCEMIA Stated Complaint: HYPOGLYCEMIA History of Present Illness The patient is a 67 year old male who presents to the Emergency Room with complaints of sudden hypoglycemia that began prior to arrival. The patient states that he has a history of diabetes and states that he takes insulin in the morning, lunch, and dinner. He states that he took his insulin today, but does not remember taking any of his medications. The patient states that he last saw his primary care physician three months ago. He additionally states that he has a history of hypertension, high cholesterol, and kidney disease, reporting that he is preparing for dialysis. The patient denies any headache, recent weight gain, nausea, vomiting, chest pain, shortness of breath, or leg swelling. Source of History: patient Onset: prior to arrival Position: other (global) Quality: other (hypoglycemia) Timing: other (persistent) Associated Symptoms: No headache, No chest pain, No SOB, No nausea, No vomiting Review of Systems See HPI for pertinent positives & negatives. A total of 10 systems reviewed and were otherwise negative. Past Medical & Surgical Medical Problems: (1) Diabetic peripheral neuropathy associated with type 1 diabetes mellitus (2) History of diabetic ulcer of foot (3) Loss of sensation (4) Peripheral vascular disease (5) sepsis with uti (6) Status post partial amputation of foot Family History Patient reports no known family medical history. Social History Smoking Status: Unknown if Ever Smoked Alcohol Use: none Drug Use: none Marital Status: Housing Status: lives with family Occupation Status: employed Current/Historical Medications Scheduled Amlodipine Besylate (Amlodipine Besylate), 10 MG PO DAILY Aspirin (Aspirin Ec), 81 MG PO DAILY Atorvastatin (Lipitor), 80 MG PO HS Carvedilol (Carvedilol), 25 MG PO BID Cholecalciferol (Vitamin D 1000 Unit), 1,000 INTER.UNIT PO DAILY Finasteride (Finasteride), 5 MG PO DAILY Furosemide (Furosemide), 20 MG PO BID Insulin Aspart (Novolog), 1 DOSE SC UD Insulin Detemir (Levemir), 65 UNITS SC HS Insulin Human NPH (Novolin N), 1 DOSE SC UD Irbesartan (Irbesartan), 150 MG PO HS Isosorbide Mononitrate Ext Rel (Imdur Ext Rel), 60 MG PO DAILY Nitroglycerin (Nitrostat), 0.4 MG UT UD Nortriptyline HCl (Nortriptyline HCl), 50 MG PO HS Omeprazole (Prilosec), 20 MG PO DAILY Tiotropium [place] (Spiriva Handihaler), 1 CAP INH DAILY Scheduled PRN Acetaminophen (Arthritis Pain Relief), 650 MG PO BID PRN for Pain Albuterol Hfa (Ventolin Hfa), 2 PUFFS INH Q6H PRN for Shortness of Breath Diclofenac Sodium (Topical) (Voltaren 1% Top Gel), 1 APPLN TOP QID PRN for Knee Pain Allergies Coded Allergies: No Known Allergies (Verified , NONE, 04/02/17) Physical Exam Vital Signs Date Time Temp Pulse Resp B/P (MAP) Pulse Ox O2 Delivery O2 Flow Rate FiO2 06/15/17 19:58 89 16 182/92 95 Room Air 06/15/17 19:09 92 06/15/17 18:42 36.3 91 18 232/88 91 Room Air 220/89 Physical Exam GENERAL: Patient is awake, and answering questions appropriately. The patient does not appear to be in pain or anxious. EYES: The conjunctivae are clear. The pupils are round and reactive. EARS, NOSE, MOUTH AND THROAT: The nose is without any evidence of any deformity. Mucous membranes are moist tongue is midline NECK: The neck is nontender and supple. RESPIRATORY: Normal respiratory effort is noted there is no evidence of wheezing rhonchi or rales CARDIOVASCULAR: Regular rate and rhythm noted there no murmurs rubs or gallops normal S1 normal S2 GASTROINTESTINAL: The abdomen is soft. Bowel sounds are present in all quadrants. Abdomen is nontender MUSCULOSKELETAL/EXTREMITIES: There is no evidence of gross deformity full range of motion is noted in the hips and shoulders SKIN: Pedal edema noted bilaterally. Dialysis in left upper extremity, palpable thrill as well a s a bruit note to auscultation. There is no obvious evidence of any rash. There are no petechiae, pallor or cyanosis noted. NEUROLOGIC: Patient is awake alert and oriented x3 no facial droop, strength is symmetric patellar reflexes are 2+ bilaterally Medical Decision & Procedures ER Provider Diagnostic Interpretation: X-ray results as stated below per interpretation by me and the radiologist. CHEST ONE VIEW PORTABLE CLINICAL HISTORY: 67 years-old Male presenting with altered MS. TECHNIQUE: Portable upright AP view of the chest was obtained. COMPARISON: 08/28/2014. FINDINGS: Cardiomediastinal silhouette normal. Lungs and pleural spaces clear. Osseous structures and upper abdomen normal. IMPRESSION: 1. No acute cardiopulmonary disease. Electronically signed by: Marcos Marrero M.D. 06/15/2017 7:33 PM Dictated Date/Time: 06/15/2017 7:32 PM Laboratory Results 06/15/17 19:05 Red Blood Count 4.99, Mean Corpuscular Volume 86.2, Mean Corpuscular Hemoglobin 29.3, Mean Corpuscular Hemoglobin Concent 34.0, Mean Platelet Volume 10.8, Neutrophils (%) (Auto) 78.1, Lymphocytes (%) (Auto) 10.8, Monocytes (%) (Auto) 8.8, Eosinophils (%) (Auto) 1.5, Basophils (%) (Auto) 0.5, Neutrophils # (Auto) 6.23, Lymphocytes # (Auto) 0.86, Monocytes # (Auto) 0.70, Eosinophils # (Auto) 0.12, Basophils # (Auto) 0.04 06/15/17 19:05 Test 06/15/17 00:00 06/15/17 19:05 06/15/17 20:02 Urine Color YELLOW Urine Appearance CLEAR (CLEAR) Urine pH 6.0 (4.5-7.5) Urine Specific [place] 1.018 (1.000-1.030) Urine Protein 4+ (NEG) Urine Glucose (UA) NEG (NEG) Urine Ketones NEG (NEG) Urine Occult Blood 2+ (NEG) Urine Nitrite NEG (NEG) Urine Bilirubin NEG (NEG) Urine Urobilinogen NEG (NEG) Urine Leukocyte Esterase NEG (NEG) Urine WBC (Auto) 1-5 /hpf (0-5) Urine RBC (Auto) 0-4 /hpf (0-4) Urine Hyaline Casts (Auto) 1-5 /lpf (0-5) Urine Epithelial Cells (Auto) >30 /lpf (0-5) Urine Bacteria (Auto) NEG (NEG) Urine Renal Epithelial Cells /lpf (0-5) White Blood Count 7.97 K/uL (4.8-10.8) Red Blood Count 4.99 M/uL (4.7-6.1) Hemoglobin 14.6 g/dL (14.0-18.0) Hematocrit 43.0 % (42-52) Mean Corpuscular Volume 86.2 fL (80-100) Mean Corpuscular Hemoglobin 29.3 pg (25-34) Mean Corpuscular Hemoglobin Concent 34.0 g/dl (32-36) Platelet Count 112 K/uL (130-400) Mean Platelet Volume 10.8 fL (7.4-10.4) Neutrophils (%) (Auto) 78.1 % Lymphocytes (%) (Auto) 10.8 % Monocytes (%) (Auto) 8.8 % Eosinophils (%) (Auto) 1.5 % Basophils (%) (Auto) 0.5 % Neutrophils # (Auto) 6.23 K/uL (1.4-6.5) Lymphocytes # (Auto) 0.86 K/uL (1.2-3.4) Monocytes # (Auto) 0.70 K/uL (0.11-0.59) Eosinophils # (Auto) 0.12 K/uL (0-0.5) Basophils # (Auto) 0.04 K/uL (0-0.2) RDW Standard Deviation 45.4 fL (36.4-46.3) RDW Coefficient of Variation 14.4 % (11.5-14.5) Immature Granulocyte % (Auto) 0.3 % Immature Granulocyte # (Auto) 0.02 K/uL (0.00-0.02) Anion Gap 10.0 mmol/L (3-11) Est Creatinine Clear Calc Drug Dose 34.6 ml/min Estimated GFR () 21.9 Estimated GFR (Non- 18.9 BUN/Creatinine Ratio 13.4 (10-20) Calcium Level 9.4 mg/dl (8.5-10.1) Total Bilirubin 0.5 mg/dl (0.2-1) Direct Bilirubin mg/dl (0-0.2) Aspartate Amino Transf (AST/SGOT) 41 U/L (15-37) Alanine Aminotransferase (ALT/SGPT) 55 U/L (12-78) Alkaline Phosphatase 119 U/L (45-117) Total Creatine Kinase 306 U/L (39-308) Creatine Kinase MB 2.4 ng/ml (0.5-3.6) Creatine Kinase MB Ratio 0.8 (0-3.0) Troponin I < 0.015 ng/ml (0-0.045) Total Protein 7.5 gm/dl (6.4-8.2) Albumin 3.7 gm/dl (3.4-5.0) Lipase 89 U/L (73-393) Chemistry Specimen Hemolysis Bedside Glucose 146 mg/dl (70-99) Laboratory results per my review. Medications Administered Medications (Trade) Dose Ordered Sig/Jackie Route Start Time Stop Time Status Last Admin Dose Admin Sodium Chloride 500 ml @ 999 mls/hr Q31M STAT IV 06/15/17 18:42 06/15/17 19:12 DC 06/15/17 18:42 999 MLS/HR ECG Indication: other (hypoglycemia) Rate (beats per minute): 91 Rhythm: normal sinus Findings: RBBB, no ectopy, other (No actue ST segment abnormalities) Comparison ECG Date: 04/02/17 Change: no significant change ED Course 1836: The patient was evaluated in room C6. A complete history and physical examination were performed. 1841: Ordered Sodium Chloride 500 ml @ 999 mls/hr IV. 1913: I reevaluated the patient and he is resting comfortably. The patients feels that the patient is currently at his baseline. 2015: I reevaluated the patient and he is resting comfortably. I discussed the exam findings with him and I discussed the treatment plan. He and his verbalized complete understanding and agreement. The patient is ready to go home. Medical Decision Differential diagnosis: Etiologies such as metabolic, infection, hypoglycemia, electrolyte abnormalities , cardiac sources, intracerebral event, toxicologic, neurologic, as well as others were entertained. Nursing notes reviewed. Additional history is obtained from the prehospital personnel. The patient is a 67-year-old male who presented to the emergency department for an evaluation of low blood sugar. The patient has a history of diabetes. He also has a history of kidney disease. His insulin dose was not changed and he is unsure if he missed a meal. The patient was treated with oral glucose as well as IV dextrose prior to arrival. Upon arrival to the emergency department he was awake alert and had no further complaints. The patient was treated with IV fluids in the emergency department. I discussed the patient's laboratory and radiographic studies with him. He was given a meal in the emergency department. His significant other presented to the emergency Department with him and states that he is at his normal baseline mental status at this time. He was encouraged to call his primary care physician in the morning to schedule a follow-up appointment. He was also encouraged to rest and not miss any meals. He was also encouraged to monitor his blood sugar. He was also encouraged to return to the emergency apartment immediately if symptoms change worsen or the need arises. Medication Reconcilliation Current Medication List: was personally reviewed by me Blood Pressure Screening Patient's blood pressure: Elevated blood pressure Blood pressure disposition: Referred to PCP Impression Primary Impression: Altered mental status Additional Impression: Hypoglycemia Scribe Attestation The scribe's documentation has been prepared under my direction and personally reviewed by me in its entirety. I confirm that the note above accurately reflects all work, treatment, procedures, and medical decision making performed by me. Departure Information Dispostion Home / Self-Care Referrals Thaddeus Peoples M.D. (PCP) Forms HOME CARE DOCUMENTATION FORM, IMPORTANT VISIT INFORMATION, WORK / SCHOOL INSTRUCTIONS Patient Instructions Hypoglycemia, My [facility] Additional Instructions Call your family in the morning to schedule a follow-up appointment. Rest and avoid any strenuous activity. Continue to monitor your blood sugar. Do not miss any meals. Return to the emergency department if symptoms worsen or if need arises. Problem Qualifiers Primary Impression: Altered mental status Altered mental status type: unspecified Qualified Codes: R41.82 - Altered mental status, unspecified
[2017-06-15] MEDS ORDERED: IRBE1TAB48 PO (19:05)
[2017-06-15] MEDS ORDERED: CRG25 PO (19:05)
[2017-06-15] MEDS ORDERED: LSX20 PO (19:05)
[2017-06-15] MEDS ORDERED: NVLNI SC (19:05)
[2017-06-15] MEDS ORDERED: OMEP20CA9 PO (19:05)
[2017-06-15] MEDS ORDERED: PRS5 PO (19:05)
[2017-06-15] MEDS ORDERED: NRT/50 PO (19:05)
[2017-06-15] MEDS ORDERED: NRV/10 PO (19:05)
[2017-06-15 19:17] LABS: BASO % 0.5 %; BASO ABS # 0.04 K/uL (0-0.2); COMPLETE YES; EOS % 1.5 %; IG% 0.3 %; LYMPH % 10.8 %; LYMPH ABS # 0.86 K/uL (1.2-3.4); MEAN CELL VOLUME 86.2 fL (80-100); MEAN CORPUSCULAR HEMOGLOBIN 29.3 pg (25-34); MEAN PLATELET VOLUME 10.8 fL (7.4-10.4); MONO % 8.8 %; NEUT % 78.1 %; PLATELET COUNT 112 K/uL (130-400); RED BLOOD COUNT 4.99 M/uL (4.7-6.1); WHITE BLOOD COUNT 7.97 K/uL (4.8-10.8)
--- NOTE | 2017-06-15 19:34 | DIAGNOSTIC IMAGING REPORT ---
CHEST ONE VIEW PORTABLE CLINICAL HISTORY: 67 years-old Male presenting with altered MS. TECHNIQUE: Portable upright AP view of the chest was obtained. COMPARISON: 08/28/2014. FINDINGS: Cardiomediastinal silhouette normal. Lungs and pleural spaces clear. Osseous structures and upper abdomen normal. IMPRESSION: 1. No acute cardiopulmonary disease. Electronically signed by: Marcos Marrero M.D. 06/15/2017 7:33 PM Dictated Date/Time: 06/15/2017 7:32 PM
[2017-06-15 19:49] LABS: ALKALINE PHOSPHATASE 119 U/L (45-117); ALT/SGPT 55 U/L (12-78); AST/SGOT 41 U/L (15-37); BLOOD UREA NITROGEN 43 mg/dl (7-18); BUN/CREATININE RATIO 13.4 (10-20); CALCIUM 9.4 mg/dl (8.5-10.1); CARBON DIOXIDE 25 mmol/L (21-32); CHLORIDE 106 mmol/L (98-107); CKMB/CK RATIO 0.8 (0-3.0); GLUCOSE 104 mg/dl (70-99); POTASSIUM 4.5 mmol/L (3.5-5.1); SODIUM 141 mmol/L (136-145)
[2017-06-15 19:50] LABS: URINE APPEARANCE CLEAR (CLEAR); URINE BILIRUBIN NEG (NEG); URINE COLOR YELLOW; URINE EPITHELIAL CELL AUTO >30 /lpf (0-5); URINE NITRITE NEG (NEG); URINE SPECIFIC GRAVITY 1.018 (1.000-1.030); UROBILINOGEN NEG (NEG)
[2017-06-15 19:58] VITALS: BP 182/92; PULSE 89; O2SAT 95
[2017-06-15 20:01] LABS: MANUAL MICROSCOPIC REQUIRED? NO; REVIEW REQ? YES
== END 2017-06-15 20:44 | disposition home or self-care (01) ==
LOC: EDBD 18:32 → C.EDC 18:33
DX: R41.82 Altered mental status, unspecified (principal); E10.649 Type 1 diabetes mellitus with hypoglycemia without coma; E10.40 Type 1 diabetes mellitus with diabetic neuropathy, unspecified; I10 Essential (primary) hypertension; I73.9 Peripheral vascular disease, unspecified; Z87.440 Personal history of urinary (tract) infections; Z89.439 Acquired absence of unspecified foot; Z79.82 Long term (current) use of aspirin

== ENCOUNTER → 2017-07-07 | Outpatient (CLI) | payer BC ==
[~2017-07-07] MED LIST changes: -AMLO-114 PO; -CARV25TA2 PO; +CRG25 PO; -ERGO1CAP41 PO; -FINA5TAB PO; -FURO-85 PO; -IRBE-37 PO; +IRBE1TAB48 PO; +LSX20 PO; -NORT50CA PO; +NRT/50 PO; +NRV/10 PO; +NVLNI SC; -OMEP20CA59 PO; +OMEP20CA9 PO; +PRS5 PO; -TRAM-453 PO
[2017-07-07 12:15] LABS: BASO % 0.1 %; BASO ABS # 0.01 K/uL (0-0.2); COMPLETE YES; HEMATOCRIT 38.7 % (42-52); IG% 0.4 %; LYMPH % 14.6 %; LYMPH ABS # 1.09 K/uL (1.2-3.4); MEAN CELL VOLUME 88.2 fL (80-100); MEAN CORPUSCULAR HEMOGLOBIN 29.4 pg (25-34); MEAN CORPUSCULAR HGB CONC 33.3 g/dl (32-36); MEAN PLATELET VOLUME 11.2 fL (7.4-10.4); MONO % 7.7 %; NEUT % 77.2 %; PLATELET COUNT 163 K/uL (130-400); RED BLOOD COUNT 4.39 M/uL (4.7-6.1); WHITE BLOOD COUNT 7.49 K/uL (4.8-10.8)
[2017-07-07 12:26] LABS: BLOOD UREA NITROGEN 48 mg/dl (7-18); BUN/CREATININE RATIO 16.1 (10-20); CARBON DIOXIDE 22 mmol/L (21-32); CHLORIDE 102 mmol/L (98-107); GLUCOSE 308 mg/dl (70-99); POTASSIUM 4.5 mmol/L (3.5-5.1); SODIUM 134 mmol/L (136-145)
[2017-07-07 12:36] LABS: BETA-HYDROXYBUTYRATE 1.34 mg/dL (0.2-2.81)
== END | disposition home or self-care (01) ==
LOC: C.LABBFT 07:44
PROVIDERS: ATTEND Internal Medicine
DX: D61.818 Other pancytopenia (principal); E10.21 Type 1 diabetes mellitus with diabetic nephropathy

== ENCOUNTER → 2017-08-12 | Outpatient (CLI) | payer BC ==
[2017-08-12 12:29] LABS: HEMATOCRIT 41.6 % (42-52); MEAN CELL VOLUME 87.8 fL (80-100); MEAN CORPUSCULAR HEMOGLOBIN 28.3 pg (25-34); MEAN CORPUSCULAR HGB CONC 32.2 g/dl (32-36); MEAN PLATELET VOLUME 10.9 fL (7.4-10.4); PLATELET COUNT 129 K/uL (130-400); RED BLOOD COUNT 4.74 M/uL (4.7-6.1); WHITE BLOOD COUNT 5.21 K/uL (4.8-10.8)
[2017-08-12 12:34] LABS: URINE APPEARANCE CLEAR (CLEAR); URINE BILIRUBIN NEG (NEG); URINE COLOR YELLOW; URINE NITRITE NEG (NEG); URINE SPECIFIC GRAVITY 1.013 (1.000-1.030); UROBILINOGEN NEG (NEG)
[2017-08-12 12:36] LABS: MANUAL MICROSCOPIC REQUIRED? NO; REVIEW REQ? NO
[2017-08-12 12:51] LABS: URINE PROTIEN/CREAT RATIO 1.8 (0-0.2); URINE TOTAL PROTEIN 162.2 mg/dl (0-11.9)
[2017-08-12 12:57] LABS: BLOOD UREA NITROGEN 33 mg/dl (7-18); BUN/CREATININE RATIO 11.1 (10-20); CALCIUM 8.9 mg/dl (8.5-10.1); CARBON DIOXIDE 23 mmol/L (21-32); CHLORIDE 105 mmol/L (98-107); GLUCOSE 175 mg/dl (70-99); PHOSPHORUS 3.5 mg/dl (2.5-4.9); POTASSIUM 4.3 mmol/L (3.5-5.1); SODIUM 138 mmol/L (136-145)
== END | disposition home or self-care (01) ==
LOC: C.LABBFT 07:43
PROVIDERS: ATTEND Internal Medicine Nephrology
DX: I12.9 Hypertensive chronic kidney disease with stage 1 through stage 4 chronic kidney disease, or unspecified chronic kidney disease (principal); N18.4 Chronic kidney disease, stage 4 (severe); E55.9 Vitamin D deficiency, unspecified; R80.9 Proteinuria, unspecified

== ENCOUNTER → 2018-01-18 | Outpatient (CLI) | payer OTHER, MEDICARE ==
[2018-01-18 12:19] LABS: HEMOGLOBIN 13.8 g/dL (14.0-18.0); MEAN CELL VOLUME 87.7 fL (80-100); MEAN CORPUSCULAR HEMOGLOBIN 28.8 pg (25-34); MEAN CORPUSCULAR HGB CONC 32.9 g/dl (32-36); MEAN PLATELET VOLUME 11.2 fL (7.4-10.4); PLATELET COUNT 125 K/uL (130-400); RED CELL DISTRIBUTION WIDTH CV 14.5 % (11.5-14.5); RED CELL DISTRIBUTION WIDTH SD 46.4 fL (36.4-46.3); WHITE BLOOD COUNT 4.43 K/uL (4.8-10.8)
[2018-01-18 12:55] LABS: ALBUMIN 3.4 gm/dl (3.4-5.0); ALT/SGPT 46 U/L (12-78); BLOOD UREA NITROGEN 46 mg/dl (7-18); CALCIUM 9.1 mg/dl (8.5-10.1); CARBON DIOXIDE 26 mmol/L (21-32); CHOLESTEROL 186 mg/dl (0-200); CREATININE 3.35 mg/dl (0.60-1.40); GLUCOSE 134 mg/dl (70-99); PHOSPHORUS 4.2 mg/dl (2.5-4.9); POTASSIUM 4.4 mmol/L (3.5-5.1); SODIUM 138 mmol/L (136-145)
[2018-01-18 13:47] LABS: HEMOGLOBIN A1C 7.1 % (4.5-5.6)
== END | disposition home or self-care (01) ==
LOC: C.LABBFT 07:32
PROVIDERS: ATTEND Internal Medicine Nephrology
DX: I10 Essential (primary) hypertension (principal); R80.9 Proteinuria, unspecified; N25.81 Secondary hyperparathyroidism of renal origin; E55.9 Vitamin D deficiency, unspecified; N18.4 Chronic kidney disease, stage 4 (severe); E10.9 Type 1 diabetes mellitus without complications

== ENCOUNTER → 2018-02-21 | Outpatient (CLI) | payer OTHER, MEDICARE ==
--- NOTE | 2018-02-21 09:54 | DIAGNOSTIC IMAGING REPORT ---
(CHEST) THORAX WITHOUT CT DOSE: 1469.05 mGy.cm HISTORY: Follow-up pulmonary nodules. R91.8 Pulmonary nodules/lesions, multiple TECHNIQUE: Multiaxial CT images of the chest were performed without contrast. A dose lowering technique was utilized adhering to the principles of ALARA. COMPARISON: Chest CT 02/03/2017. FINDINGS: The central airways are patent. No pleural effusions. No pneumothorax. Mild emphysema. Stable 6 mm groundglass nodule within the left upper lobe best seen on image 68. A few additional subcentimeter nodules at the left lung apex measuring up to 4 mm also stable. Stable 4 mm groundglass nodule within the left upper lobe on image 77. Stable 3 mm groundglass nodule within the left upper lobe on image 84. A few scattered punctate calcified granulomas within the right lung. A few scattered linear densities within the lower lobes suggestive of subsegmental atelectasis are scarring. This remains unchanged. Stable 2 cm sclerotic lesion within the T11 vertebral body. This favors a bone island. The visualized liver, spleen, and adrenal glands are unremarkable. Moderate calcified plaque within the normal caliber abdominal aorta and coronary arteries. The heart is normal in size. No mediastinal or hilar lymphadenopathy. IMPRESSION: Stable subcentimeter pulmonary nodules as described above. Continued one-year follow-up for the dominant 6 mm groundglass nodule within the left upper lobe. Electronically signed by: Herbert Alba M.D. 02/21/2018 9:53 AM Dictated Date/Time: 02/21/2018 9:44 AM
== END | disposition home or self-care (01) ==
LOC: C.CTS 09:32
PROVIDERS: ATTEND Internal Medicine Pulmonary Disease
DX: R91.8 Other nonspecific abnormal finding of lung field (principal)

== ENCOUNTER → 2018-02-22 | Outpatient (CLI) | payer OTHER, MEDICARE ==
[2018-02-22 15:04] LABS: BASO % 0.6 %; BASO ABS # 0.03 K/uL (0-0.2); EOS % 3.4 %; EOS ABS # 0.17 K/uL (0-0.5); HEMATOCRIT 40.1 % (42-52); HEMOGLOBIN 13.3 g/dL (14.0-18.0); LYMPH % 21.3 %; LYMPH ABS # 1.05 K/uL (1.2-3.4); MEAN CELL VOLUME 87.6 fL (80-100); MEAN CORPUSCULAR HGB CONC 33.2 g/dl (32-36); MEAN PLATELET VOLUME 11.6 fL (7.4-10.4); MONO ABS # 0.54 K/uL (0.11-0.59); NEUT % 63.7 %; NEUT ABS # 3.14 K/uL (1.4-6.5); PLATELET COUNT 128 K/uL (130-400); RED CELL DISTRIBUTION WIDTH CV 14.4 % (11.5-14.5); WHITE BLOOD COUNT 4.93 K/uL (4.8-10.8)
[2018-02-22 15:22] LABS: ALBUMIN 3.3 gm/dl (3.4-5.0); BLOOD UREA NITROGEN 53 mg/dl (7-18); CALCIUM 9.1 mg/dl (8.5-10.1); CARBON DIOXIDE 21 mmol/L (21-32); GLUCOSE 254 mg/dl (70-99); POTASSIUM 4.8 mmol/L (3.5-5.1); SODIUM 133 mmol/L (136-145)
[2018-02-22 15:33] LABS: PHOSPHORUS 2.9 mg/dl (2.5-4.9)
[2018-02-23 05:45] LABS: HEMOGLOBIN A1C 7.3 % (4.5-5.6)
== END | disposition home or self-care (01) ==
LOC: C.LABBFT 08:46
PROVIDERS: ATTEND Internal Medicine
DX: I10 Essential (primary) hypertension (principal); D61.818 Other pancytopenia; R53.83 Other fatigue; E10.9 Type 1 diabetes mellitus without complications; Z12.5 Encounter for screening for malignant neoplasm of prostate

== ENCOUNTER → 2018-03-29 | Outpatient (CLI) | payer OTHER, MEDICARE ==
[2018-03-29 13:05] LABS: ALBUMIN 3.3 gm/dl (3.4-5.0); BLOOD UREA NITROGEN 52 mg/dl (7-18); CALCIUM 8.8 mg/dl (8.5-10.1); CARBON DIOXIDE 26 mmol/L (21-32); CREATININE 3.65 mg/dl (0.60-1.40); GLUCOSE 192 mg/dl (70-99); PHOSPHORUS 3.6 mg/dl (2.5-4.9); POTASSIUM 4.6 mmol/L (3.5-5.1); SODIUM 136 mmol/L (136-145)
== END | disposition home or self-care (01) ==
LOC: C.LABBFT 07:44
PROVIDERS: ATTEND Internal Medicine
DX: N18.4 Chronic kidney disease, stage 4 (severe) (principal)

== ENCOUNTER 2021-02-24 08:17 | Inpatient (IN) ==
[2021-02-24] MEDS ORDERED: DEXTROSE 50% 50 ML SYRINGE IV ONE (10:24)
--- NOTE | 2021-02-24 11:25 | Pre Anesthesia Assessment ---
Date of Service February 24, 2021 Pre Sedation Assessment Vital Signs Temp Pulse Resp BP Pulse Ox 02/24/21 08:25 98.2 F 75 20 143/59 H 95 Cardiovascular RRR, no murmur, no edema Respiratory normal respiratory effort, lungs clear to auscultation Pre-Sedation Airway Assessment Smoking Status: Never smoker Hx Sleep Apnea: Yes Hx Difficult Intubation: No Short, Thick Neck: No Thyromental Distance: > or= 3.5 Finger Breadths Oral Cavity: + WNL Mallampati Class: IV ASA: ASA4 NPO Status Date of Last Intake of Fluids: 02/24/21 Time of Last Intake of Fluids: 06:45 Last Oral Intake of Fluids Comment: sip with meds Date of Last Intake of Solid Food: 02/23/21 Time of Last Intake of Solid Foods: 20:00 Procedure Planning Contraindications for Sedation: none Current Medications Reviewed: Yes Notes The planned sedation has been discussed with the patient. Informed Consent was obtained. I have identified the patient, determined the appropriateness of sedation and have assessed the patient immediately prior to the procedure. All medicine(s) and interventions are by my order.
--- NOTE | 2021-02-24 11:26 | History & Physical Bridge Note ---
Date of Service February 24, 2021 History & Physical Bridge Note I have examined the patient, reviewed the History & Physical and in the interval since the performance of the History & Physical I have noted the following changes of clinical significance: no changes noted
[2021-02-24] MEDS ORDERED: SODIUM CHLORIDE 0.9% 1000ML 1,000 ML IV PRN (14:14)
[2021-02-24] MEDS ORDERED: HEPARIN (PORCINE) 1000 UNIT/ML 10 ML (CATH LAB USE ONLY) ONE ×2 (14:18→15:58)
[2021-02-24] MEDS ORDERED: niCARdipine HCL INJ 2.5 MG/ML 10 ML AMP ONE (14:18)
[2021-02-24] MEDS ORDERED: NITROGLYCERIN/D5W 100MCG/ML 20ML SYR ONE (14:19)
[2021-02-24] MEDS ORDERED: fentaNYL citrate 100 MCG/2 ML VIAL ONE ×2 (14:19→15:27)
[2021-02-24] MEDS ORDERED: MIDAZOLAM HCL 1 MG/ML 2ML VIAL ONE ×2 (14:19→15:27)
--- NOTE | 2021-02-24 15:39 | Nephrology Consultation ---
Date of Consultation February 24, 2021 Assessment & Plan (1) ESRD (end stage renal disease): * Baseline Cr has been 5.0 w/EGFR 10 cc/min. Expect renal function to deteriorate following PCI * Will schedule 1st run HD today following cardiac cath: 2 hrs, 3K 2.5Ca, F-180 NR, UF 1L, no heparin, 17 g needles using L upper arm AVF. Orders have been placed in the EMR and HD RN notified * Protect L arm dialysis access * Will reassess need for HD in am * Will consult case management to set up TTS HD at [facility] following discharge from hospital (2) Hypertension: (3) CAD (coronary artery disease): (4) Type 1 diabetes mellitus: History of Present Illness Reason for Consultation: ESRD Attending Physician: Thaddeus Muñoz MD History of Present Illness Mr. Albert is a 70 year old white male who is seen at the request of Dr. Muñoz to provide inpatient HD. Medical records in the EMR were reviewed today and are summarized as follows: Mr. Albert has ESRD due to diabetic nephropathy. He underwent L arm AVF creation 11/[address] Goncalves in preparation for HD but has not yet started dialysis. Recently Mr. Albert has been suffering from exertional dyspnea. Cardiac cath 02/09 revealed 100% LAD (distal fills by collateral vessels), 80% L Cx, 80% R main. Mr. Albert has met with CT surgery at [facility] as well as [facility] Card[facility]. He has chosen not to pursue open heart surgery and wishes to undergo PCI of RCA and L circumflex lesions. He will start HD following the procedure and then receive outpatient HD at [facility] HD unit. PMH: IDDM > 30 years (+ retinopathy s/p retinal laser photocoagulation therapy, peripheral neuropathy, diabetic nephropathy), hyperlipidemia, DRAKE, ASCVD (dobutamine stress test 09/02 negative for ischemia), obesity (BMI 43) Allergies Allergy/AdvReac Type Severity Reaction Status Date / Time No Known Drug Allergies Allergy Verified 02/11/21 10:28 Home Medications Medication Instructions Recorded Confirmed Type aspirin 81 mg tablet 81 mg PO DAILY tab 08/01/19 02/24/21 History ipratropium 0.5 mg-albuterol 3 mg 3 ml INHALATION Q4H PRN #2 ml 08/01/19 02/24/21 History (2.5 mg base)/3 mL nebulization soln nitroglycerin 0.4 mg sublingual 0.4 mg SL Q5M PRN #25 tab 08/01/19 02/24/21 History tablet hydrocodone 7.5 mg-acetaminophen 1 tab PO Q4H PRN #30 tab 08/22/19 02/24/21 Rx 325 mg tablet acetaminophen 650 mg 650 mg PO ONCE PRN tab 08/25/19 02/24/21 History tablet,extended release albuterol sulfate 90 mcg/actuation 1 - 2 puffs INH Q4H PRN ea 08/31/19 02/24/21 History breath activated powder inhaler blood sugar diagnostic #10 ea 12/14/19 02/11/21 History syringe with needle 3 mL 25 x 5/8" #1 ea 12/14/19 02/11/21 History carvedilol 25 mg tablet 25 mg PO TID #270 tab 02/27/20 02/24/21 Rx umeclidinium 62.5 mcg-vilanterol 1 puffs INH DAILY #60 ea 03/13/20 02/24/21 Rx 25 mcg/actuation powdr for inhalation CPAP Machine #1 ea 03/27/20 02/11/21 Rx clotrimazole 1 % topical solution 1 applic TOPICAL BID 14 Days #10 ml 07/04/20 02/24/21 Rx Novolin N NPH U-100 Insulin 100 180 unit SUBCUT .COMPLEX 90 Days 09/05/20 02/24/21 Rx unit/mL subcutaneous susp #170 ml NS losartan 100 mg tablet 100 mg PO DAILY #30 tab 09/09/20 02/24/21 Rx amlodipine 10 mg tablet 10 mg PO DAILY #90 tab 09/12/20 02/24/21 Rx methocarbamol 500 mg tablet 500 mg PO TID PRN #90 tab 09/24/20 02/24/21 Rx atorvastatin 80 mg tablet 80 mg PO DAILY #90 tab 09/26/20 02/24/21 Rx diclofenac sodium 1 % topical gel 2 g TOPICAL TID PRN g 09/26/20 02/24/21 History sodium bicarbonate 650 mg tablet 650 mg PO DAILY #60 tab 09/26/20 02/24/21 Rx ergocalciferol (vitamin D2) 1,250 50,000 unit PO .COMPLEX #3 cap 10/03/20 02/24/21 Rx mcg (50,000 unit) capsule isosorbide mononitrate 120 mg 120 mg PO DAILY #30 tab 12/12/20 02/24/21 Rx tablet,extended release 24 hr insulin aspart U-100 100 unit/mL 180 unit SUBCUT DAILY ml 12/30/20 02/24/21 History subcutaneous solution pregabalin 50 mg capsule 50 mg PO DAILY #30 cap 01/08/21 02/24/21 Rx meclizine 25 mg tablet 25 mg PO TID PRN #30 tab 02/05/21 02/24/21 Rx methylprednisolone 4 mg tablets in 4 mg PO .COMPLEX #21 ea 02/05/21 02/24/21 Rx a dose pack nortriptyline 50 mg capsule 50 mg PO HS #90 cap 02/05/21 02/24/21 Rx finasteride 5 mg PO DAILY 02/24/21 02/24/21 History furosemide 20 mg PO BID 02/24/21 02/24/21 History omeprazole 20 mg PO DAILY 02/24/21 02/24/21 History Patient History Medical History BPH (benign prostatic hyperplasia) CAD (coronary artery disease) Callus Chronic back pain Chronic kidney disease, stage V Chronic low back pain Chronic obstructive pulmonary disease Diabetes mellitus with diabetic polyneuropathy Diabetes mellitus, type 2 Insulin 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 Hyperlipidemia Hypertension Lumbar radicular pain Myocardial Infarction 1994 DRAKE (obstructive sleep apnea) Osteoarthritis PVD (peripheral vascular disease) Sleep apnea CPAP SOB (shortness of breath) on exertion Spinal stenosis of lumbar region Surgical History H/O colonoscopy History of amputation Right Little Toe Hx of vascular surgery X 2-TOTAL STENT3 X 3-R LRG Hx of vascular surgery AVF L ARM-HAS NEVER HAD DIALYSIS Family History Other No family history of adverse response to anesthesia No family history of bleeding disorder No pertinent family history in first degree relatives Denies family history of Ovarian cancer Prostate cancer Coronary heart disease Myocardial infarction Breast cancer Colorectal cancer Social History Smoking Status: Never smoker Age Started Using Tobacco: 18; Age Quit Using Tobacco: 19; packs per day: 0.25; Years Smoked: 1; Cigarettes Per Day: 5; Number of Years Since Quit: 50; Second Hand Exposure: No; Hx Alcohol Use: No Hx Substance Use: No Preferred Language: Tristanian Communication Ability: Effective Hearing Ability: Use of Hearing Aid Dictating Transcribing Machine Servicer Required: No Beliefs That Will Affect Care: None marital status: Current Living Situation: Spouse current occupational status: retired Feels Safe at Home: Yes Safety Concerns: Feels Safe At This Time Childhood Exposure to Second-Hand Smoke: No caffeine: Yes Dental Care, Regularly: Yes Physical Activity Frequency: Does not Exercise Seatbelt Use: always Sunscreen Use: No Assistive Devices: Cane, CPAP, Hearing Aid - Left and Hearing Aid - Right Review of Systems Constitutional: no fever Eyes: no problem reported Ear, Nose, Mouth, Throat: no problem reported Respiratory: no dyspnea Cardiovascular: no chest pain and no edema Gastrointestinal: no abdominal pain and no diarrhea/loose stools Musculoskeletal: no back pain Integumentary: no rash Neurologic: no falls, no dizziness and no confusion Physical Exam Constitutional: not in distress Mr. Albert was seen & examined in the preprocedure waiting area of the cardiac labeling specialist this morning. He was in no distress Eyes: PERRL, conjunctivae normal, anicteric sclerae ENMT: external ear and nose normal, oropharynx normal Neck: trachea midline, no thyromegaly Respiratory: normal respiratory effort, lungs clear to auscultation Cardiovascular: Rate/Rhythm: regular rate and regular rhythm Extremities: + edema (1+ pretibial pitting edema) and + AV fistula (+ bruit) Gastrointestinal (Abdomen): normal bowel sounds, soft, nontender, no hepatosplenomegaly Musculoskeletal: Extremities: no cyanosis Skin: no rashes, warm and dry Neurologic: awake; not confused Results & Data ([facility]) Vital Signs (Past 12 Hours) Vital Signs Temp Pulse Resp BP Pulse Ox 02/24/21 08:25 36.8 C 75 20 143/59 H 95 PG Care Time/CCT Total # of Minutes Spent Total Time Spent with Patient: Total time spent is greater than 50% in c oordination of care (as documented) at patient's floor/unit and/or counseling patient: Coding Level of Care Code 93442 Office/OBS Consult Lvl 5 Diagnoses ESRD (end stage renal disease) N18.6 Hypertension I10 Hypertension type: essential hypertension CAD (coronary artery disease) I25.118 Coronary Disease-Associated Artery/Lesion type: tribe artery [place] vs. transplanted heart: tribe heart Associated angina: with stable angina Type 1 diabetes mellitus E10.9 (1) Hypertension Hypertension type: essential hypertension Qualified Code(s): I10 - Essential (primary) hypertension (2) CAD (coronary artery disease) Coronary Disease-Associated Artery/Lesion type: tribe artery [place] vs. transplanted heart: tribe heart Associated angina: with stable angina Qualified Code(s): I25.118 - Atherosclerotic heart disease of tribe coronary artery with other forms of angina pectoris
[2021-02-24] MEDS ORDERED: TICAGRELOR 90 MG TAB PO ONE (16:07)
--- NOTE | 2021-02-24 16:10 | Post Anesthesia Assessment ---
Date of Service February 24, 2021 Post Sedation Assessment Vital Signs Temp Pulse Resp BP Pulse Ox 02/24/21 08:25 98.2 F 75 20 143/59 H 95 Recovery Score Activity: Moves 4 extremities Respiration: Deep Breath/Cough Circulation: +/-20% PreAnes Value Consciousness: Fully Awake Oxygen Saturation: O2 needed for >90% Discharge Sedation Level of Care: Fast Track Phase II Post Sedation Plan On clinical assessment, the patient appears to have tolerated the sedation without complications. Patient is recovering as anticipated. Patient will continue to be monitored by nursing and may be discharged when sedation discharge criteria are met per below protocol. Upon Completions of procedure up to 15 minutes continue every 5 minute vital signs and the P.A.R. score; then discharge to a Phase I or Fast Track to Phase II per the following guidelines: * Discharge Patient to appropriate Phase II area if PAR is 8 or greater or return to pre- procedure baseline. The post - procedure orders will be as directed. * If PAR score is less than 8 or not return to pre-procedure baseline then patient will follow Phase I monitoring till PAR is reached for Phase II. The Phase I may be done in procedure room or may call to secure a Phase I area. * If naloxone or flumazenil are used for reversal, hold in Phase I for continued monitoring from when last reversal dose was given for a minimum of 60 minutes or longer pending the nurse and/or physician discretion of patient condition before discharge to Phase II. Please call the Sedation Physician to re-evaluate and complete post-note for discharge to Phase II area. Do NOT discharge from procedure sedation or Phase 1 until post- sedation evaluation note is complete by procedure /sedation MD Sedation Discharge Instructions to be given to the patient at discharge to home.
[2021-02-24] MEDS ORDERED: ACETAMINOPHEN 325 MG TAB PO PRN (16:15)
[2021-02-24] MEDS ORDERED: ONDANSETRON INJ 2 MG/ML 2 ML VIAL IV PRN (16:15)
--- NOTE | 2021-02-24 16:15 | Post Operative Brief Note ---
Cardiology Brief Post Op Date of Surgery February 24, 2021 Pre & Post Diagnosis CAD Procedure -- Credit Clerk Thaddeus Muñoz MD Hat Cleaner patel Estimated Blood Loss 15 Findings Consistent with Post-Op Diagnosis PCI to LAD with 2 JACOB Specimens Specimen Description: -- Anesthesia Type RN Sedation Complications none Disposition Disposition: Surgical ICU Overlapping Procedure I was present for: the critical portions of procedure. I was immediately available: during the entire case. Back up surgeon: was not required during procedure.
[2021-02-24] MEDS ORDERED: METHOCARBAMOL 500 MG TABLET PO PRN (16:20)
[2021-02-24] MEDS ORDERED: DICLOFENAC SOD 1% GEL 100 GM TUBE EXT PRN (16:20)
[2021-02-24] MEDS ORDERED: ALBUT/IPRATROP 3MG/0.5MG NEB 3 ML VIAL INH PRN (16:20)
[2021-02-24] MEDS ORDERED: GLUCOSE 40% GEL 15 GM TUBE PO PRN (16:22)
[2021-02-24] MEDS ORDERED: GLUCOSE 10 TABS/TUBE PO PRN (16:22)
[2021-02-24] MEDS ORDERED: CARBOHYDRATES FOR HYPOGLYCEMIA PO PRN (16:22)
[2021-02-24] MEDS ORDERED: DEXTROSE 50% 50 ML SYRINGE IV PRN (16:22)
[2021-02-24] MEDS ORDERED: GLUCAGON FOR INJ 1 MG VIAL SQ PRN (16:22)
[2021-02-24] MEDS ORDERED: ALBUTEROL HFA 8 GM INHALER INH PRN (16:43)
[2021-02-24] MEDS ORDERED: MECLIZINE HCL 25 MG TAB PO PRN (16:46)
[2021-02-24] MEDS ORDERED: PHARMACY GLYCEMIC MGMT CONSULT PRN (16:48)
[2021-02-24] MEDS: INSULIN ASPART 100 UNITS/ML 3 ML PEN SC SCH ×2 (17:48→21:58)
[2021-02-24] MEDS ORDERED: INSULIN HUMAN NPH SC STA (17:48)
--- NOTE | 2021-02-24 17:59 | Pharmacy Report ---
Pharmacy Glycemic Short Note 2 - Date of Service February 24, 2021 - Glycemic Short BSG Results (Last 24 hours): 02/24/21 16:55 POC Glucose 129 H OUTPATIENT ANTIDIABETIC REGIMEN: * Confirmed the following with the patient, which is similar to his most recent diabetes visit note a few months ago: * Insulin NPH 40 units with breakfast, 120-180 units with dinner * Novolog TIDM - 35/15/45 units respectively, plus sliding scale * HbA1c 7.0% on 01/14/21 * However, this result is likely somewhat unreliable in ESRD patients d/t interactions between the A1c analyzing technique and high levels of urea in ESRD, reduced RBC life span, iron deficiency anemia, and EPO administration. HbA1c > 7.5% in ESRD patient may overestimate the extent of hyperglycemia in ESRD patients. ASSESSMENT: * 70 yo M with T1DM per diabetes visit note (although on very high doses of outpatient insulin suggesting significant insulin resistance as well) scheduled for a PCI today and is now post-op recovering the in ICU * Spoke with the patient to clarify his home regimen, doses, and schedule - see above * Post-op BSG good at 129 mg/dL. Patient noted he was hungry, but the food here wasn't to his taste (broccoli and salad). He noted he did not take his NPH earlier today * Will continue with NPH for now as patient does not currently have any basal insulin on-board and would prefer more rapid onset. However, will reduce slightly from home regimen given that his diet will be different here and BSG is currently good * Novolog at tight initial regimen given patient confirmation that he would normally give himself 45 units of Novolog at this time PLAN FOR INPATIENT GLYCEMIC CONTROL: * Basal insulin * NPH 100 units SQ x1 now * Bolus insulin * NovoLog per scale ACHS or Q6hrs while NPO - two overnight checks as well * Goal Range: Low 120 mg/dL - High 150 mg/dL * Correction Factor: 10 mg/dL/unit * Nutritional / Prandial insulin per carb ratio of 1 unit per 2.5 grams CHO consumed PLAN FOR DISCHARGE: * TBD
[2021-02-24] MEDS: NITROGLYCERIN SL 0.4 MG/TAB TAB SL PRN ×2 (18:32→18:39)
[2021-02-24] MEDS ORDERED: MoRPHine SULFATE 2 MG/ML CARP IV PRN (18:34)
[2021-02-24] MEDS: NORTRIPTYLINE HCL 25 MG CAP PO SCH (20:29)
[2021-02-24] MEDS: carvediloL 25 MG TAB PO SCH (20:30)
[2021-02-24 21:04] LABS: Hepatitis B Surface Ab Quant 7.33 mIU/mL (>or=10mIU/mL Immune); Hepatitis B Surface Antibody Non-Immune
[2021-02-24 21:14] LABS: Hepatitis B Surf Ag Rflx Conf Neg (Neg)
[2021-02-24] MEDS: HEPARIN SOD 5,000 UNIT/0.5 ML VIAL SQ SCH (21:57)
--- NOTE | 2021-02-24 21:57 | Cardiac Catheterization ---
[facility] Data: Store Host Cardiac Status Clinical evaluation leading to the procedure CAD Presenation: Unstable angina Anginal Classification: CCS III Heart Failure: No Cardiogenic Shock within 24 Hours: No Cardiac Arrest within 24 Hours: No Imaging Studies Past 6 Months: Yes Stress Studies Past 6 Months: No Diagnostic Physicians Name: Thaddeus Muñoz MD Status: Elective Closure Device Percutaneous Entry Location: Radial Closure Device: Radial Band Recommendations: PCI without planned CABG PCI Indication: Angina despite med therapy and Unstable Angina Lesion Segment Name: mid LAD Culprit Artery: Yes Stenosis Prior to Rx (%): 100 Chronic Total Occlusion: Yes IVUS: No FFR: No Pre-Procedure RITCHIE Flow: 1 Previously Treated Lesion: No Lesion Complexity: High/C Lesion Length (mm): 50 Thrombus Present: Yes Bifurcation Lesion: Yes Guidewire Across Lesion: Stenosis Post-Procedure (%): 0 Post-Procedure RITCHIE Flow: 3 Devices(s) Deployed: Yes Yes Intraprocedure Events Significant Disection: No Perforation: No Cardiac Cath Procedure Full Procedure Date February 24, 2021 Pre-Procedure Diagnosis Pre-Procedure Diagnosis: CAD AUC Score AUC Score: 7 Post-Procedure Diagnosis Post-Procedure Diagnosis: Severe CAD, Successful PCI and Elevated Intracardiac Pressures Procedure(s) Performed Procedure(s) Performed: Coronary Angiography and Drug Eluting Stent Manufacture Specialist Thaddeus Muñoz MD Air Filler(s) Alondra Estimated Blood Loss Estimated Blood Loss: 20 Medication(s) Medication(s): Fentanyl, Heparin, Lidocaine 1%, Nicardipine and Versed Medication(s): Ticagrelor Summary of Findings Indication: Multivessel coronary artery disease, refractory angina Access: 6 Fr right radial artery Catheters: EBU 3.5 guide Findings: LM -Short, calcified, 30% distal LAD -medium caliber, heavily calcified, 100% mid segment occlusion, distal vessel wraps around apex. Circumflex -medium caliber, mildly calcified, 50% distal stenosis prior to left PLB. Small to medium caliber OM 2, OM 3 with mild diffuse disease RCA -not visualized on current study. Previously noted to have severe, diffuse proximal to mid disease up to 95%. -- PCI of LAD-- Antithrombotic therapy: Heparin, ticagrelor Procedure: Left main cannulated with EBU 3.5 guide With the aid of a OTW harbor pilot 50 wire passed across mid LAD occlusion into distal vessel. Intraluminal position confirmed via injection through OTW balloon Proximal to mid LAD lesion predilated with 2.0 and 2.5 compliant balloons With the aid of a telescope guide biodiesel engineering manager proximal to mid LAD stented with 2 overlapping JACOB (2.5 x 30, 2.5 x 30 Kamaljit) Stent post-dilated with 3.0 noncompliant balloon IC vasodilators administered for spasm Post procedure RITCHIE 3 flow, stent well expanded with minimal residual stenosis and no apparent cardiac complications. Arterial Closure: TR band Summary: 1. Severe multivessel coronary artery disease -Diffuse proximal LAD disease, 100% mid LAD GEAR GRINDING MACHINE OPERATOR with left to left collaterals 50% distal circumflex disease Known subtotal occlusive mid RCA disease 2. Successful PCI of proximal to mid LAD with 2 overlapping drug-eluting stents (2.5 x 30, 2.5 x 30 [place]; postdilated with 3.0 NC). Recommendations: To PCU for continued monitoring and initiation of of hemodialysis per Dr. Lopez Loaded with ticagrelor 180 mg in recyclable materials sorter Continue dual-antiplatelet therapy for at least 1 year Consult cardiac Rehab Plan for staged PCI of RCA at a later date. Circumflex disease appears only moderate today and can be medically managed. Hemodynamics Rest Ao:: 123/62/86 Final Ao: 112/54/68 LV: -- Recommendations Recommendations: PCI without planned CABG Specimens Specimens: None Radiation Exposure (mGy) 3576 Contrast (mls) 100 Fluids (cc crystalloids) Fluids (cc crystalloids): -- Drains Drains: none Anesthesia moderate [id number] Procedural Complication(s) None Disposition ICU I attest to the content of the Intraoperative Record and any orders documented therein. Any exceptions are noted below. [facility] Card Cath Procedure Codes Cardiac Catheterization Procedure 1: Cardiovascular Cath Procedures: 29673 Coronaries Moderate Sedation Procedure 1: Sedation/Anesthesia: 06687 Mod Sedation by the same physician;Init15 Min Child Age 5 & Up Procedure 2: Sedation/Anesthesia: 31337 Mod Sedation by the same physician; Ea [id number] Minutes Stenting Procedure 1: Cardiovascular Stent Procedures: 51800 Perc transluminal revascularization of chronic total occlusion, PG Care Time/CCT Total # of Minutes Spent Total Time Spent with Patient: Total time spent is greater than 50% in coordination of care (as documented) at patient's floor/unit and/or counseling patient:
[2021-02-24] MEDS: HYDROCODONE/ACETAMINOPHEN 7.5/325MG TAB PO PRN (23:51)
[2021-02-25] MEDS: INSULIN ASPART 100 UNITS/ML 3 ML PEN SC SCH ×7 (00:04→20:53)
[2021-02-25] MEDS ORDERED: TICAGRELOR 90 MG TAB PO SCH (02:17)
[2021-02-25 05:20] LABS: Basophils # (auto) 0.02 K/uL (0-0.2); Basophils % (auto) 0.2 %; Hematocrit (blood only) 42.1 % (42-52); Hemoglobin 13.8 g/dL (14.0-18.0); Immature Granulocytes # (auto) 0.02 K/uL (0.00-0.02); Immature Granulocytes % (auto) 0.2 %; Lymphocytes # (auto) 1.07 K/uL (1.2-3.4); Lymphocytes % (auto) 10.6 %; Mean Corpuscular Hemoglobin 29.4 pg (25-34); Mean Corpuscular Hgb Conc 32.8 g/dL (32-36); Mean Corpuscular Volume 89.6 fL (80-100); Mean Platelet Volume 11.2 fL (7.4-10.4); Monocytes # (auto) 1.21 K/uL (0.11-0.59); Platelet Count 123 K/uL (130-400); RDW Coefficient of Variation 15.9 % (11.5-14.5); RDW Standard Deviation 52.2 fL (36.4-46.3); White Blood Count 10.12 K/uL (4.8-10.8)
[2021-02-25] MEDS: TICAGRELOR 90 MG TAB PO SCH ×2 (05:37→18:07)
[2021-02-25 05:49] LABS: BUN Creatinine Ratio 13.1 (10-20); Creatinine Clr Calc Pharmacy 26.8 ml/min; Est GFR (African American) 16.1; Est GFR (Non-African American) 13.9; Potassium 5.1 mmol/L (3.5-5.1)
[2021-02-25] MEDS: INSULIN HUMAN NPH SC SCH ×2 (07:51→07:56)
[2021-02-25] MEDS: FINASTERIDE 5 MG TAB PO SCH (08:55)
[2021-02-25] MEDS: LOSARTAN POTASSIUM 50 MG TAB PO SCH (08:55)
[2021-02-25] MEDS: ISOSORBIDE MONO EXTENDED REL 60 MG TABCR PO SCH (08:55)
[2021-02-25] MEDS: UMECLIDINIUM/VILANTEROL 62.5/25MCG 7 PUFFS/INHALER INH SCH (08:55)
[2021-02-25] MEDS: ASPIRIN 81 MG ECTAB PO SCH (08:55)
[2021-02-25] MEDS: amLODIPine BESYLATE 5 MG TAB PO SCH (08:55)
[2021-02-25] MEDS: NEPHROCAPS PO SCH (08:55)
[2021-02-25] MEDS: SODIUM BICARBONATE 650 MG TAB PO SCH (08:55)
[2021-02-25] MEDS: PANTOprazole 40 MG TAB PO SCH (08:56)
[2021-02-25] MEDS: ATORVASTATIN 40 MG TAB PO SCH (08:56)
[2021-02-25] MEDS: HEPARIN SOD 5,000 UNIT/0.5 ML VIAL SQ SCH ×2 (08:56→20:52)
[2021-02-25] MEDS: carvediloL 25 MG TAB PO SCH ×3 (08:56→20:52)
[2021-02-25] MEDS ORDERED: PREGABALIN 50 MG CAP PO SCH (09:00)
[2021-02-25] MEDS: HYDROCODONE/ACETAMINOPHEN 7.5/325MG TAB PO PRN ×2 (09:12→20:52)
[2021-02-25] MEDS ORDERED: SODIUM CHLORIDE 0.9% 1000ML 1,000 ML IV PRN (09:27)
--- NOTE | 2021-02-25 09:49 | XRay Report ---
XR chest 1V portable CLINICAL HISTORY: dyspnea COMPARISON STUDY: 01/12/2019 FINDINGS: The heart is enlarged. Since the prior study, the patient developed bilateral airspace opac ities left greater than right, asymmetric pulmonary edema versus pneumonia. There is a suspected subp ulmonic left pleural effusion.[ IMPRESSION: 1. Interval development of asymmetric left greater than right pulmonary airspace opacities, asymmetri c pulmonary edema versus multifocal pneumonia. Clinical and radiographic follow-up are recommended. ACT 112: Negative or not required by law. Electronically signed by: Francois Stoddard M.D. 02/25/2021 9:47 AM
--- NOTE | 2021-02-25 10:18 | Nephrology Progress Note ---
Date of Service February 25, 2021 Assessment & Plan (1) ESRD (end stage renal disease): * HD yesterday complicated by infiltration of the venous needle. Only 48 min HD and 700 cc UF provided yesterday * CXR this am c/w CHF * AVF has + bruit and palpable thrill. Venous limb can be palpated proximal to the venous needle site * Access concerns discussed w/ HD RN this am. Will resume HD at ~ 1pm today: heparin free, 3 hrs, attempt 3L UF * I have called [facility] HD unit this am - outpatient treatments are scheduled for TTS starting at 10:30 am (2) Hypertension: (3) CAD (coronary artery disease): (4) Type 1 diabetes mellitus: Admission and Anticipated Discharge Date Admission Date: February 24, 2021 Subjective Mr. Albert was seen and examined in the ICU this morning. He denies angina but c/o dyspnea and is requiring O2 at 6 L/min oxygen mask. HD was attempted last evening. staff electrical engineer reports difficulty w/ venous needle placement. Needle infiltrated after 48 min dialysis and treatment was terminated. Only 0.7L UF obtained. Review of Systems Constitutional: no fever Eyes: no problem reported Ear, Nose, Mouth, Throat: no problem reported Respiratory: + dyspnea Cardiovascular: + edema; no chest pain Gastrointestinal: no abdominal pain Musculoskeletal: no back pain Neurologic: no confusion Physical Exam Constitutional: not in distress (breathing comfortably on O2 at 6 L/min FM) Eyes: PERRL, conjunctivae normal, anicteric sclerae ENMT: external ear and nose normal, oropharynx normal Neck: trachea midline, no thyromegaly Respiratory: normal respiratory effort Auscultation: + crackles Cardiovascular: Rate/Rhythm: + tachycardic Extremities: + edema (1+ pretibial pitting edema) and + AV fistula (Small palpable hematoma surrounding venous needle site. AVF has + bruit) Gastrointestinal (Abdomen): normal bowel sounds, soft, nontender, no hepatosplenomegaly Musculoskeletal: Extremities: no cyanosis Skin: no rashes, warm and dry Neurologic: awake; not confused Results & Data ([facility]) Vital Signs (Past 12 Hours) Vital Signs Temp Pulse Resp BP Pulse Ox 02/25/21 05:00 107 H 20 127/69 92 02/25/21 04:30 37.3 C 02/25/21 04:00 90 22 119/70 93 02/25/21 02:00 88 20 122/88 95 02/25/21 01:01 111 H 18 152/77 H 96 02/25/21 00:00 36.9 C 86 18 121/67 97 02/24/21 23:17 112 H 02/24/21 23:01 96 H 20 114/79 96 Laboratory Tests 02/25/21 02/25/21 04:42 04:42 WBC 10.12 Hgb 13.8 L Hct 42.1 Plt Count 123 L Sodium 140 Potassium 5.1 Chloride 110 H Carbon Dioxide 23 BUN 53 H Creatinine 4.06 H Glucose 118 H PG Care Time/CCT Total # of Minutes Spent Total Time Spent with Patient: Total time spent is greater than 50% in coordination of care (as documented) at patient's floor/unit and/or counseling patient: Coding Level of Care Code 39016 Subseq Hosp Care Lvl 3 Diagnoses ESRD (end stage renal disease) N18.6 Hypertension I10 Hypertension type: essential hypertension CAD (coronary artery disease) I25.118 Associated angina: with stable angina Coronary Disease-Associated Artery/Lesion type: [place] artery [place] vs. transplanted heart: [place] heart Type 1 diabetes mellitus E10.9 (1) CAD (coronary artery disease) Associated angina: with stable angina Coronary Disease-Associated Artery/Lesion type: [place] artery [place] vs. transplanted heart: [place] heart Qualified Code(s): I25.118 - Atherosclerotic heart disease of [place] coronary artery with other forms of angina pectoris (2) Hypertension Hypertension type: essential hypertension Qualified Code(s): I10 - Essential (primary) hypertension
--- NOTE | 2021-02-25 12:27 | Pharmacy Report ---
Pharmacy Glycemic Short Note 2 - Date of Service February 25, 2021 - Glycemic Short BSG Results (Last 24 hours): 02/24/21 02/24/21 02/24/21 16:55 21:54 23:39 Glucose POC Glucose 129 H 138 H 109 H 02/25/21 02/25/21 02/25/21 02:48 04:42 04:48 Glucose 118 H POC Glucose 80 117 H 02/25/21 02/25/21 02/25/21 07:12 07:54 09:05 Glucose POC Glucose 112 H 116 H 176 H 02/25/21 11:25 Glucose POC Glucose 190 H OUTPATIENT ANTIDIABETIC REGIMEN: * Confirmed the following with the patient, which is similar to his most recent diabetes visit note a few months ago: * Insulin NPH 40 units with breakfast, 120-180 units with dinner * Novolog TIDM - 35/15/45 units respectively, plus sliding scale * HbA1c 7.0% on 01/14/21 * However, this result is likely somewhat unreliable in ESRD patients d/t interactions between the A1c analyzing technique and high levels of urea in ESRD, reduced RBC life span, iron deficiency anemia, and EPO administration. HbA1c > 7.5% in ESRD patient may overestimate the extent of hyperglycemia in ESRD patients. ASSESSMENT: 02/25 * BSGs have been well controlled over last 24 hrs * I was notified that patient's BSG did drop to 80 overnight and he did consume a snack as a result. Fasting AM BSG 116 this AM. He did receive 100 units NPH last evening. * Based upon prior admission data, he requires MUCH LESS basal insulin than reported. Will base NPH doses upon prior admission data in light of overnight BSGs despite receive less of his evening NPH than his out-pt regimen provided. * Suspect his inpatient insulin requirements will be ~140-160 units/day if tolerating a diet. 02/24 * 70 yo M with T1DM per diabetes visit note (although on very high doses of outpatient insulin suggesting significant insulin resistance as well) scheduled for a PCI today and is now post-op recovering the in ICU * Spoke with the patient to clarify his home regimen, doses, and schedule - see above * Post-op BSG good at 129 mg/dL. Patient noted he was hungry, but the food here wasn't to his taste (broccoli and salad). He noted he did not take his NPH earlier today * Will continue with NPH for now as patient does not currently have any basal insulin on-board and would prefer more rapid onset. However, will reduce slightly from home regimen given that his diet will be different here and BSG is currently good * Novolog at tight initial regimen given patient confirmation that he would normally give himself 45 units of Novolog at this time PLAN FOR INPATIENT GLYCEMIC CONTROL: * Basal insulin * NPH 50 units with breakfast + 40 units with dinner * Please note, nursing did not administer the AM dose of basal insulin this morning due to patient refusal...if he is a type 1 diabetic this will likely lead to significant deterioration in glycemic control today. His insulin requirements are much greater than one would expect for a type 1 diabetic. * Bolus insulin * NovoLog per scale ACHS or Q6hrs while NPO - two overnight checks as well * Goal Range: Low 120 mg/dL - High 150 mg/dL * Correction Factor: 12 mg/dL/unit * Nutritional / Prandial insulin per carb ratio of 1 unit per 2.5 grams CHO consumed PLAN FOR DISCHARGE: * TBD
--- NOTE | 2021-02-25 12:54 | Cardiology Progress Note ---
Date of Service February 25, 2021 Assessment & Plan (1) Coronary artery disease: Post PCI with 2 JACOB to proximal to mid LAD Residual severe RCA disease 2. End-stage renal disease 3. Frequent atrial ectopy/PAT vs AF 4. Ischemic cardiomyopathy -- LVEF 35-40% 5. Recent covid 19 infection 6. Pulmonary infiltrates 7. Type 1 DM 8. Hypertension 9. DRAKE 10. LE PAD 11. Mild to moderate mitral regurgitation 12. Mid pulmonary hypertension. 13. Mild thrombocytopenia Chest pain free this morning. Breathing improved but still O2 dependent with pulmonary infiltrates after partial HD session yesterday -- suspect edema in the setting of IV contrast load, renal function and new onset AF. No access site complications. -- Discussed with Dr. Lopez. He plans for additional HD today. Appreciate assistance. -- If persistent respiratory symptoms, infiltrates consider further evaluation/coverage for PNA -- Rhythm appears to be sinus with frequent PAT. If clear AF consider amio/anticoagulation. -- Continue current ASA/Ticagrelor. -- on home antihypertensives -- Insulin per pharmacy - appreciate help. D/c to home when respiratory symptoms improved, home HD set up. Admission and Anticipated Discharge Date Admission Date: February 24, 2021 Subjective Patient had chest pain yesterday evening, shortness of breath overnight with difficulty sleeping. On 4 to 6 L this morning. Chest x-ray with asymmetric opacities. Seen around noon today. Appeared comfortable, eating lunch sitting up in chair. Denied any chest pain. Denies any wrist pain. States is felt much better since has been up in the chair. Telemetry reviewedatrial fibrillation with heart rates primarily in the 100s to 110s. Review of Systems Review of Systems: All systems reviewed & are unremarkable except as noted in HPI & below Physical Exam Physical Exam: General: Comfortable, up in chair HEENT: Sclerae anicteric, Lungs: Few crackles right base greater than left Cardiac: Tacky, irregular irregular Vascular: Right radial artery access site with no ecchymosis, hematoma. Distal pulse and sensation intact. Abdomen: Soft, nontender Extremities: Well perfused, trace bilateral edema to mid shins Neuro: Nonfocal Psych: Alert orient x3, normal affect and mood Results & Data ([facility]) Vital Signs (Past 12 Hours) Vital Signs Temp Pulse Pulse Resp BP BP Pulse Ox 02/25/21 12:00 98.2 F 107 H 108 H 22 92/61 L 95 02/25/21 08:00 97.7 F 107 H 90 24 125/77 93 02/25/21 05:00 107 H 20 127/69 92 02/25/21 04:30 99.1 F 02/25/21 04:00 90 22 119/70 93 02/25/21 02:00 88 20 122/88 95 02/25/21 01:01 111 H 18 152/77 H 96 PG Care Time/CCT Total # of Minutes Spent Total Time Spent with Patient: Total time spent is greater than 50% in coordination of care (as documented) at patient's floor/unit and/or counseling patient: Coding Level of Care Code 63124 Subseq Hosp Care Lvl 3 Diagnoses Coronary artery disease I25.10
--- NOTE | 2021-02-25 14:36 | Electrocardiogram Report ---
Test Reason : Blood Pressure : / mmHG Vent. Rate : 118 BPM Atrial Rate : 096 BPM P-R Int : 170 ms QRS Dur : 146 ms QT Int : 374 ms P-R-T Axes : 270 -42 -64 degrees QTc Int : 524 ms Poor data quality, interpretation may be adversely affected Sinus rhythm with runs of PAT Left axis deviation Right bundle branch block Cannot rule out Inferior infarct (cited on or before 12-JAN-2019) Anterolateral infarct (cited on or before 12-JAN-2019) Abnormal ECG When compared with ECG of 12-JAN-2019 17:11, PAT is new Confirmed by Jesus Martinez ([id number]) on 02/25/2021 2:36:15 PM Referred By: Nathan Muñoz Confirmed By:Jesus Martinez
--- NOTE | 2021-02-25 14:57 | Electrocardiogram Report ---
Test Reason : Blood Pressure : / mmHG Vent. Rate : 098 BPM Atrial Rate : 098 BPM P-R Int : 216 ms QRS Dur : 152 ms QT Int : 340 ms P-R-T Axes : 000 135 -24 degrees QTc Int : 434 ms Sinus rhythm with 1st degree A-V block with Premature atrial complexes Indeterminate axis Right bundle branch block Anterior infarct (cited on or before 12-JAN-2019) Abnormal ECG When compared with ECG of 24-FEB-2021 17:56, (unconfirmed) No significant change Confirmed by Jesus Martinez ([id number]) on 02/25/2021 2:57:41 PM Referred By: Nathan Muñoz Confirmed By:Jesus Martinez
[2021-02-25] MEDS ORDERED: INSULIN HUMAN NPH SC SCH (16:30)
[2021-02-25] MEDS: NORTRIPTYLINE HCL 25 MG CAP PO SCH (20:52)
[2021-02-26] MEDS ORDERED: NOREPINEPHRINE/D5W 8 MG/508 ML IV ONE (04:01)
[2021-02-26 05:07] LABS: Hemoglobin 13.3 g/dL (14.0-18.0); Mean Corpuscular Hemoglobin 28.9 pg (25-34); Mean Corpuscular Hgb Conc 32.4 g/dL (32-36); Mean Corpuscular Volume 89.1 fL (80-100); Mean Platelet Volume 11.5 fL (7.4-10.4); Platelet Count 109 K/uL (130-400); RDW Coefficient of Variation 16.1 % (11.5-14.5); RDW Standard Deviation 52.8 fL (36.4-46.3)
[2021-02-26 05:45] LABS: Calcium 8.9 mg/dl (8.5-10.1); Creatinine Clr Calc Pharmacy 21.8 ml/min; Est GFR (African American) 12.6; Est GFR (Non-African American) 10.8; Potassium 5.1 mmol/L (3.5-5.1)
[2021-02-26] MEDS: TICAGRELOR 90 MG TAB PO SCH (06:32)
--- NOTE | 2021-02-26 08:08 | XRay Report ---
XR chest 1V portable HISTORY: 70 years-old Male CHF acute shortness of breath with congestive heart failure COMPARISON: Chest radiograph 02/25/2021 TECHNIQUE: Portable AP view of the chest FINDINGS: Cardiomediastinal and hilar silhouettes are unchanged. Left greater than right interstitial opacities with ill-defined left lung airspace densities. Mildly improved aeration of the bilateral lungs. No p neumothorax or large pleural effusion. Degenerative changes of the shoulders and spine. IMPRESSION: Mildly improved aeration of the lungs with persistent left greater than right interstitia l opacities with left lung base predominant consolidation. Asymmetric pulmonary edema versus pneumoni a considered. ACT 112: Negative or not required by law. The above report was generated using voice recognition software. It may contain grammatical, syntax o r spelling errors. Electronically signed by: Lam Gaona M.D. 02/26/2021 8:07 AM
[2021-02-26] MEDS: INSULIN ASPART 100 UNITS/ML 3 ML PEN SC SCH ×2 (08:29→12:27)
[2021-02-26] MEDS: UMECLIDINIUM/VILANTEROL 62.5/25MCG 7 PUFFS/INHALER INH SCH (08:29)
[2021-02-26] MEDS: INSULIN HUMAN NPH SC SCH (08:29)
[2021-02-26] MEDS: PANTOprazole 40 MG TAB PO SCH (08:30)
[2021-02-26] MEDS: ATORVASTATIN 40 MG TAB PO SCH (08:30)
[2021-02-26] MEDS: LOSARTAN POTASSIUM 50 MG TAB PO SCH (08:30)
[2021-02-26] MEDS: ASPIRIN 81 MG ECTAB PO SCH (08:30)
[2021-02-26] MEDS: NEPHROCAPS PO SCH (08:30)
[2021-02-26] MEDS: FINASTERIDE 5 MG TAB PO SCH (08:30)
[2021-02-26] MEDS: amLODIPine BESYLATE 5 MG TAB PO SCH (08:30)
[2021-02-26] MEDS: ISOSORBIDE MONO EXTENDED REL 60 MG TABCR PO SCH (08:30)
--- NOTE | 2021-02-26 08:30 | Nephrology Progress Note ---
Date of Service February 26, 2021 Assessment & Plan (1) ESRD (end stage renal disease): * Dialyzed yesterday without complication. AVF functioned well. 3L UF obtained * Volume status is markedly improved. CXR shows improvement in pulmonary infiltrates. Patient is breathing comfortably on RA * Electrolyte balance is acceptable this am * OK to discharge from Nephrology perspective. Patient is scheduled for outpatient HD starting tomorrow at 10:30 am [facility] (TTS schedule) (2) Hypertension: * BP controlled. No change to current medical regimen (3) CAD (coronary artery disease): * s/p PCI LAD 02/24/21 (4) Type 1 diabetes mellitus: Admission and Anticipated Discharge Date Admission Date: February 25, 2021 Subjective Mr. Albert was seen & examined in the ICU this morning. He was dialyzed last evening for 3 hours w/ 3L UF. There were no complications. His breathing is s ubjectively improved. He is now breathing comfortably on RA and denies angina. Review of Systems Constitutional: no fever Eyes: no problem reported Ear, Nose, Mouth, Throat: no problem reported Respiratory: no dyspnea Cardiovascular: no chest pain Gastrointestinal: no abdominal pain Musculoskeletal: no back pain Neurologic: no confusion Physical Exam Constitutional: not in distress (breathing comfortably on RA) Eyes: PERRL, conjunctivae normal, anicteric sclerae ENMT: external ear and nose normal, oropharynx normal Neck: trachea midline, no thyromegaly Respiratory: normal respiratory effort, lungs clear to auscultation normal respiratory effort Cardiovascular: Rate/Rhythm: + tachycardic Extremities: + edema and + AV fistula (Small palpable hematoma surrounding venous needle site. AVF has + bruit) Gastrointestinal (Abdomen): normal bowel sounds, soft, nontender, no hepatosplenomegaly Musculoskeletal: Extremities: no cyanosis Skin: no rashes, warm and dry Neurologic: awake; not confused Results & Data ([facility]) Vital Signs (Past 12 Hours) Vital Signs Temp Pulse Pulse Resp BP Pulse Ox 02/26/21 03:50 36.9 C 87 20 116/66 93 02/25/21 23:42 140 H 02/25/21 23:00 37.2 C 106 H 18 134/61 90 Laboratory Tests 02/26/21 02/26/21 04:21 04:21 WBC 12.00 H Hgb 13.3 L Hct 41.0 L Plt Count 109 L Sodium 138 Potassium 5.1 Chloride 106 Carbon Dioxide 26 BUN 55 H Creatinine 4.97 H* D Glucose 147 H PG Care Time/CCT Total # of Minutes Spent Total Time Spent with Patient: Total time spent is greater than 50% in coordination of care (as documented) at patient's floor/unit and/or counseling patient: Coding Level of Care Code 44526 Subseq Hosp Care Lvl 3 Diagnoses ESRD (end stage renal disease) N18.6 Hypertension I10 Hypertension type: essential hypertension CAD (coronary artery disease) I25.118 Associated angina: with stable angina Coronary Disease-Associated Artery/Lesion type: [place] artery [place] vs. transplanted heart: [place] heart Type 1 diabetes mellitus E10.9 (1) CAD (coronary artery disease) Associated angina: with stable angina Coronary Disease-Associated Artery/Lesion type: [place] artery [place] vs. transplanted heart: [place] heart Qualified Code(s): I25.118 - Atherosclerotic heart disease of [place] coronary artery with other forms of angina pectoris (2) Hypertension Hypertension type: essential hypertension Qualified Code(s): I10 - Essential (primary) hypertension
[2021-02-26] MEDS: carvediloL 25 MG TAB PO SCH ×2 (08:31→14:30)
[2021-02-26] MEDS: SODIUM BICARBONATE 650 MG TAB PO SCH (08:31)
[2021-02-26] MEDS: HEPARIN SOD 5,000 UNIT/0.5 ML VIAL SQ SCH (08:34)
[2021-02-26] MEDS ORDERED: PREGABALIN 25 MG CAP PO SCH (09:00)
--- NOTE | 2021-02-26 13:40 | Electrocardiogram Report ---
Test Reason : Blood Pressure : / mmHG Vent. Rate : 093 BPM Atrial Rate : 097 BPM P-R Int : 164 ms QRS Dur : 146 ms QT Int : 366 ms P-R-T Axes : 052 179 -03 degrees QTc Int : 455 ms Sinus rhythm with Premature atrial complexes Right bundle branch block Septal infarct (cited on or before 12-JAN-2019) Abnormal ECG When compared with ECG of 25-FEB-2021 13:37, No significant change Confirmed by Jesus Martinez ([id number]) on 02/26/2021 1:40:02 PM Referred By: Nathan Muñoz Confirmed By:Jesus Martinez
--- NOTE | 2021-03-06 00:59 | Discharge Summary ---
Date of Service February 26, 2021 Admission HPI Per Admitting Provider 70-year-old man with a history of of type 1 diabetes, end-stage renal disease awaiting dialysis, obesity/DRAKE, ischemic cardiomyopathy EF 35 to 40% and multivessel coronary artery disease. Patient previously underwent cardiac cath on 01/20/2021. At that time found to have an occluded mid LAD with left to left collaterals, moderate to severe distal circumflex disease and subtotal mid RCA occlusion. Patient was referred to [facility] cardiac surgery for consideration of CABG. Patient deemed to be too high risk for surgery. He was seen back in consultation and due to refractory angina limiting him just walking around his home decision made to proceed with high risk PCI. Discharge Data Consultations 02/24/21 16:18 Consult Cardiac Rehabilitation Routine Procedures Performed Operation Date: 02/24/21 09:30 Actual Procedures s Cineradiography w/Routine Exam - Nathan Muñoz MD p Cath, Coronaries ONLY (no LV) - Nathan Muñoz MD p Drug Eluting Stent SGl Vessel - Nathan Muñoz MD Hospital Course (1) Coronary artery disease: Repeat coronary angiography again revealed severe multivessel disease with 100% mid LAD PLAIN [employer] HEMMER, 50% distal circumflex disease. Underwent PCI of proximal to mid LAD occlusion with 2 overlapping drug-eluting stents (2.5 x 30, 2.5 x 30 [place], postdilated with 3.0 NC). Procedure uncomplicated and was admitted to telemetry for further observation and initiation of hemodialysis. Post procedure overnight patient had recurrent chest pain with shortness of breath requiring supplemental oxygen. Chest pain improved with sublingual nitroglycerin. ECG showed unchanged right bundle branch block. Was noted to have frequent paroxysmal atrial tachycardia with heart rates to the 120s for which was continued on home beta-kayleen. Underwent HD post procedure but due to access issues UF limited. Hospital day 2 chest x-ray showed new pulmonary infiltrates with continued O2 requirement but no additional chest pain. Un derwent full hemodialysis session on hospital day 2 with UF of 3L. Post HD respiratory symptoms, chest x-ray improved. Continued to have frequent PAT but with heart rates reasonably controlled primarily in the 110s. Patient discharged home on hospital day 3 with plan to start outpatient dialysis the next day. Discharged on DAPT with aspirin, ticagrelor. Plan for staged PCI of RCA likely sometime next week. Coding Level of Care Code D/C Day Management <30 mins Diagnoses Coronary artery disease I25.10 Coronary Disease-Associated Artery/Lesion type: [place] artery [place] vs. transplanted heart: [place] heart Associated angina: without angina
== END 2021-02-26 17:13 | disposition home or self-care (01) | DRG 246 ==
LOC: CC 08:17 → 1E 08:17
PROC: CLB.CCO (2021-02-24 09:30)

== ENCOUNTER 2021-02-27 15:13 | Inpatient (IN) ==
--- NOTE | 2021-02-27 15:34 | Emergency Department Note ---
Impression & Plan Non-ST elevation (NSTEMI) myocardial infarction, ESRD (end stage renal disease), Acute hyperkalemia ED Provider Note NAME: KYLER GOOD AGE: 70 SEX: M : 1950 ARRIVES VIA: Walk-In INFORMANT: Patient, ED PROVIDER(S): Brennen Cole MD Chief Complaint: Shortness of breath HPI: Patient does present with shortness of breath and chills. Patient reported was at dialysis today but due to his sciatica type pain he presented here. He does have a known history of sciatica but this is gotten worse and during most recent inpatient hospital stay. Patient did have [address] Muñoz on Wednesday. Patient has had some increasing shortness of breath. Patient did have 2 JACOB to proximal to mid LAD. Patient does have a known history of end-stage renal disease atrial ectopy ischemic cardiomyopathy LVEF of 35 to 40% with recent COVID-19 infection. Patient also type I diabetic with DRAKE and hypertension. Did comment that the patient had had some respiratory symptoms while in house. Currently on aspirin and ticagrelor. Patient does use a CPAP mask at nighttime. The patient denies any alcohol tobacco use. The patient denies productive cough. The patient denies fevers but has had the chills. The patient states he does have chronic lower extremity swelling. The patient was at dialysis today but only completed part of his dialysis. The patient has had the shortness of breath type symptoms ongoing likely prior to his hospital stay but it is gotten progressively worse. The patient has increasing fatigue and dyspnea on exertion. Unsure as to whether or not he has true orthopnea. Patient does have mild lower extremity swelling but it is unchanged from prior. Patient denies any calf pain. The patient denies any prior history of DVT or PE. ROS: See HPI for pertinent positives and negatives. A total of 10 systems were reviewed and otherwise negative. Past medical history: See below Surgical history: See below Social history: See below Physical Exam: GENERAL: Mildly ill in appearance, wearing a mask, mild tachypnea noted. EYE EXAM: Normal conjunctiva. PERRL, no anisocoria and EOM's grossly intact w/o pain. NECK: Supple, no nuchal rigidity, no adenopathy, non-tender. No signs of meningismus. LUNGS: Clear to auscultation. Mild tachypnea noted HEART: Irregularly irregular, no MRG. ABDOMEN: Abdomen soft, non-tender, normo-active bowel sounds, no masses, no rebound or guarding. BACK: No CVA TTP. SKIN: No rashes and no bruising. UPPER EXTREMITIES: Upper extremities are grossly normal. LOWER EXTREMITIES: Grossly normal, no edema. Decreased range of motion right lower extremity. Compartments soft, trace pretibial edema. Negative Homans' sign bilaterally. NEURO EXAM: A&O x3, cranial nerves II-XII grossly intact, normal speech, moves all 4 extremities, decreased sensation bilateral lower extremities. Differential diagnoses: Reactive airway disease, pneumonia, pneumothorax, COPD, CHF, infections, cardiac ischemia, pulmonary embolism, musculoskeletal, gas trointestinal, as well as other pathologies. Course: Patient was seen and evaluated the bedside. Full history physical exam was performed. EKG: Indication: Shortness of breath Questionable A. fib as it is slightly irregular may have occasional P waves noted with history of atrial tachycardia, wide QRS, right bundle branch block pattern, slight depressions anteriorly and laterally with T WI. A. fib is new from comparison EKG completed yesterday February 26, 2021. T WI, depressions and block. Grossly unchanged. Imaging Studies: See below Cardiac monitoring: An order was placed for continuous cardiac monitoring. The monitor shows a rate of 98 with irregular rhythm. MDM: Patient was seen due to concern for shortness of breath. Given the patient did have some shallow breathing the patient was placed on BiPAP and blood work was obtained initially. Patient does have a known history of neuropathy with decreased sensation in his bilateral lower extremities which is chronic. The patient was having some sciatica type pain to the left lower extremity. No recent falls. Patient denies any headache or neck pain. Patient does have some left-sided chest discomfort and does have a recent CAD. Patient was placed on BiPAP given his shallow breathing. Blood work did show a troponin of greater than 30. Given this concern I did immediately speak with Dr. Muñoz the appliance installer. I did convey that his EKG did not appear grossly changed but given the elevations and the recent stent placement thought it reasonable to discuss the case with him. He did review the EKG. does not believe he requires emergent cardiac catheterization. He did come to evaluate the patient at the bedside. Patient was ordered heparin. The patient also was ordered his home dose aspirin and Brilinta. I did speak with the on- call hospitalist Dr. Mejias and the patient was admitted to medicine service. We further did discuss that the patient may benefit from dialysis as he did not complete his full course today. Potassium of 5.9. The patient was ordered calcium and Lasix. Nephrology was consulted and the patient was admitted to the medicine service. Plan for 2 hours of hemodialysis this evening. Critical Care: I have personally spent 97 minutes of critical care time in direct management of this patient. This includes bedside care, interpretation of diagnostic studies, and testing, discussion with consultants, patient, and family members, and other require inpatient management activities. This 97 minutes is in excess of all separately billable procedures. 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 Hyperlipidemia Hypertension Lumbar radicular pain Myocardial Infarction 1994 DRAKE (obstructive sleep apnea) Osteoarthritis PVD (peripheral vascular disease) Sleep apnea CPAP SOB (shortness of breath) on exertion Spinal stenosis of lumbar region Surgical History H/O colonoscopy History of amputation Right Little Toe Hx of vascular surgery X 2-TOTAL STENT3 X 3-R LRG Hx of vascular surgery AVF L ARM-HAS NEVER HAD DIALYSIS Family History Other No family history of adverse response to anesthesia No family history of bleeding disorder No pertinent family history in first degree relatives Denies family history of Ovarian cancer Prostate cancer Coronary heart disease Myocardial infarction Breast cancer Colorectal cancer Social History Smoking Status: Never smoker Age Started Using Tobacco: 18; Age Quit Using Tobacco: 19; packs per day: 0.25; Years Smoked: 1; Cigarettes Per Day: 5; Number of Years Since Quit: 50; Second Hand Exposure: No; Hx Alcohol Use: No Hx Substance Use: No Preferred Language: Nigerien Communication Ability: Effective Hearing Ability: Use of Hearing Aid Media Relations Manager Required: No Beliefs That Will Affect Care: None marital status: Current Living Situation: Spouse current occupational status: retired Feels Safe at Home: Yes Childhood Exposure to Second-Hand Smoke: No caffeine: Yes Dental Care, Regularly: Yes Physical Activity Frequency: Does not Exercise Seatbelt Use: always Sunscreen Use: No Assistive Devices: Hearing Aid - Right Allergies Allergies Allergy/AdvReac Type Severity Reaction Status Date / Time No Known Drug Allergies Allergy Unknown Verified 02/27/21 17:26 Home Meds Home Medications Medication Instructions Recorded Confirmed ipratropium 0.5 mg-albuterol 3 mg 3 ml INHALATION Q4H PRN #2 ml 08/01/19 02/27/21 (2.5 mg base)/3 mL nebulization soln nitroglycerin 0.4 mg sublingual 0.4 mg SL Q5M PRN #25 tab 08/01/19 02/27/21 tablet blood sugar diagnostic #10 ea 12/14/19 02/27/21 syringe with needle 3 mL 25 x 5/8" #1 ea 12/14/19 02/27/21 insulin aspart U-100 100 unit/mL 180 unit SUBCUT DAILY ml 12/30/20 02/27/21 subcutaneous solution finasteride 5 mg PO DAILY 02/24/21 02/27/21 omeprazole 20 mg PO DAILY 02/24/21 02/27/21 albuterol sulfate 2 puff INHALATION Q6H PRN 02/27/21 02/27/21 aspirin [Aspirin Low Dose] 81 mg PO DAILY 02/27/21 02/27/21 spironolactone 25 mg PO DAILY 02/27/21 02/27/21 Previous Rx's Medication Instructions Recorded carvedilol 25 mg tablet 25 mg PO TID #270 tab 02/27/20 umeclidinium 62.5 mcg-vilanterol 1 puffs INH DAILY #60 ea 03/13/20 25 mcg/actuation powdr for inhalation CPAP Machine #1 ea 03/27/20 Novolin N NPH U-100 Insulin 100 180 unit SUBCUT .COMPLEX 90 Days 09/05/20 unit/mL subcutaneous susp #170 ml NS losartan 100 mg tablet 100 mg PO DAILY #30 tab 09/09/20 amlodipine 10 mg tablet 10 mg PO DAILY #90 tab 09/12/20 methocarbamol 500 mg tablet 500 mg PO TID PRN #90 tab 11/03/20 atorvastatin 80 mg tablet 80 mg PO DAILY #90 tab 09/26/20 sodium bicarbonate 650 mg tablet 650 mg PO DAILY #60 tab 09/26/20 ergocalciferol (vitamin D2) 1,250 50,000 unit PO .COMPLEX #3 cap 10/03/20 mcg (50,000 unit) capsule isosorbide mononitrate 120 mg 120 mg PO DAILY #30 tab 12/12/20 tablet,extended release 24 hr pregabalin 50 mg capsule 50 mg PO DAILY #30 cap 01/08/21 meclizine 25 mg tablet 25 mg PO TID PRN #30 tab 02/05/21 methylprednisolone 4 mg tablets in 4 mg PO .COMPLEX #21 ea 02/05/21 a dose pack nortriptyline 50 mg capsule 50 mg PO HS #90 cap 02/05/21 B complex with C 20-folic acid 1 cap PO QAM #30 cap 02/26/21 [Renal Caps] ticagrelor [Brilinta] 90 mg PO BID@0600,1800 #60 tab 02/26/21 Results & Data (ED) Vital Signs Vital Signs - 24 hr 02/27/21 15:17 02/27/21 16:06 02/27/21 17:00 Temperature 37.2 C Temperature Source Herbert Cath ( Temp Sensing) Pulse Rate 101 H 84 79 Pulse Rate [Apical] 79 Pulse Rhythm Regular Pulse Rhythm [Apical] Regular Respiratory Rate 24 26 H 22 Respiratory Effort / Characteristics Accessory Muscle Use Non-Labored Spontaneous Respiratory Depth Normal Blood Pressure 112/97 Blood Pressure [Right Arm] 113/57 L Blood Pressure Mean 102 Blood Pressure Mean [Right Arm] 75 Blood Pressure Position Sitting Blood Pressure Position [Right Arm] Semi-fowlers Pulse Oximetry 98 98 98 Oxygen Delivery Method Room Air CPAP Fraction of Inspired Oxygen 30 Sepsis Recent Fever Within 48 Hours No Sepsis New/Unexplained Change in Mental Status N/A Sepsis Action Taken by Nursing Physician Notified 02/27/21 19:41 Temperature Temperature Source Pulse Rate Pulse Rate [Apical] 77 Pulse Rhythm Pulse Rhythm [Apical] Regular Respiratory Rate 22 Respiratory Effort / Characteristics Respiratory Depth Normal Blood Pressure Blood Pressure [Right Arm] 132/63 Blood Pressure Mean Blood Pressure Mean [Right Arm] 86 Blood Pressure Position Blood Pressure Position [Right Arm] Semi-fowlers Pulse Oximetry 96 Oxygen Delivery Method Room Air Fraction of Inspired Oxygen Sepsis Recent Fever Within 48 Hours Sepsis New/Unexplained Change in Mental Status Sepsis Action Taken by Group Home Medications Current Medication List: was personally reviewed by me Laboratory Data Attestation: I reviewed the patient's lab results. Result diagrams: 02/27/21 15:58 02/27/21 15:58 Lab Results 02/27/21 02/27/21 02/27/21 Range/Units 15:58 15:58 15:58 WBC 12.29 H (4.8-10.8) K/uL RBC 4.21 L (4.7-6.1) M/uL Hgb 12.3 L (14.0-18.0) g/dL Hct 36.7 L (42-52) % MCV 87.2 (80-100) fL MCH 29.2 (25-34) pg MCHC 33.5 (32-36) g/dL RDW Std Deviation 52.8 H (36.4-46.3) fL RDW Coeff of Alvarado 16.3 H (11.5-14.5) % Plt Count 121 L (130-400) K/uL MPV 12.3 H (7.4-10.4) fL Immature Gran % (Auto) 0.2 % Neut % (Auto) 79.3 % Lymph % (Auto) 9.8 % [place] % (Auto) 10.2 % Eos % (Auto) 0.4 % Baso % (Auto) 0.1 % Neut # (Auto) 9.74 H (1.4-6.5) K/uL Lymph # (Auto) 1.21 (1.2-3.4) K/uL [place] # (Auto) 1.25 H (0.11-0.59) K/uL Eos # (Auto) 0.05 (0-0.5) K/uL Baso # (Auto) 0.01 (0-0.2) K/uL Immature Gran # (Auto) 0.03 H (0.00-0.02) K/uL Platelet Estimate Decreased L (Normal) Echinocytes 1+ PT 10.3 (9.0-12.0) Seconds INR 1.0 (0.9-1.1) APTT 27.4 (21.0-31.0) Seconds PTT Ratio 1.0 VBG pH (7.36-7.41) VBG pCO2 (38-50) mmHg VBG pO2 mmHg VBG HCO3 mmol/L VBG O2 Saturation % VBG Base Excess mEq/L Barometric Pressure mm/Hg Sodium 132 L (136-145) mmol/L Potassium 5.9 H D (3.5-5.1) mmol/L Chloride 99 (98-107) mmol/L Carbon Dioxide 22 (21-32) mmol/L Anion Gap 11.0 (3-11) BUN 81 H (7-18) mg/dl Creatinine 7.69 H* D (0.6-1.4) mg/dl Est Cr Clr Drug Dosing Not Reportable Est GFR ( Amer) 7.4 Est GFR (Non-Af Amer) 6.4 BUN/Creatinine Ratio 10.6 (10-20) Glucose 339 H* (70-99) mg/dl POC Glucose (70-99) mg/dl Lactate (0.4-2.0) mmol/L Calcium 8.4 L (8.5-10.1) mg/dl Phosphorus 6.3 H (2.5-4.9) mg/dl Magnesium 2.1 (1.8-2.4) mg/dl Total Bilirubin 1.5 H (0.2-1) mg/dl AST 211 H (15-37) U/L ALT 66 (12-78) U/L Alkaline Phosphatase 94 (45-117) U/L Troponin I 36.500 H* (0-0.045) ng/ml NT-Pro-B Natriuret Pep 99122 H (0-900) pg/ml Total Protein 6.5 (6.4-8.2) gm/dl Albumin 2.8 L (3.4-5.0) gm/dl Globulin 3.7 (2.5-4.0) gm/dl Albumin/Globulin Ratio 0.8 L (0.9-2) Beta-Hydroxybutyric Acd 5.22 H (0.2-2.81) mg/dl Procalcitonin (0-0.5) ng/ml Urine Color Urine Appearance (Clear) Urine pH (4.5-7.5) Ur Specific [place] (1.000-1.030) Urine Protein (Negative) Urine Glucose (UA) (Negative) Urine Ketones (Negative) Urine Blood (Negative) Urine Nitrite (Negative) Urine Bilirubin (Negative) Urine Urobilinogen (Negative) Ur Leukocyte Esterase (Negative) COVID-19 Eval Order SARS-CoV-2 (PCR) (Negative) Influenza Type A (PCR) (Neg) Influenza Type B (PCR) (Neg) RSV (RT-PCR) (Neg) 02/27/21 02/27/21 02/27/21 Range/Units 15:58 15:58 16:37 WBC (4.8-10.8) K/uL RBC (4.7-6.1) M/uL Hgb (14.0-18.0) g/dL Hct (42-52) % MCV (80-100) fL MCH (25-34) pg MCHC (32-36) g/dL RDW Std Deviation (36.4-46.3) fL RDW Coeff of Alvarado (11.5-14.5) % Plt Count (130-400) K/uL MPV (7.4-10.4) fL Immature Gran % (Auto) % Neut % (Auto) % Lymph % (Auto) % [place] % (Auto) % Eos % (Auto) % Baso % (Auto) % Neut # (Auto) (1.4-6.5) K/uL Lymph # (Auto) (1.2-3.4) K/uL [place] # (Auto) (0.11-0.59) K/uL Eos # (Auto) (0-0.5) K/uL Baso # (Auto) (0-0.2) K/uL Immature Gran # (Auto) (0.00-0.02) K/uL Platelet Estimate (Normal) Echinocytes PT (9.0-12.0) Seconds INR (0.9-1.1) APTT (21.0-31.0) Seconds PTT Ratio VBG pH 7.44 H (7.36-7.41) VBG pCO2 29 L (38-50) mmHg VBG pO2 49 mmHg VBG HCO3 19 mmol/L VBG O2 Saturation 84.0 % VBG Base Excess -3.7 mEq/L Barometric Pressure 730.5 mm/Hg Sodium (136-145) mmol/L Potassium (3.5-5.1) mmol/L Chloride (98-107) mmol/L Carbon Dioxide (21-32) mmol/L Anion Gap (3-11) BUN (7-18) mg/dl Creatinine (0.6-1.4) mg/dl Est Cr Clr Drug Dosing Est GFR ( Amer) Est GFR (Non-Af Amer) BUN/Creatinine Ratio (10-20) Glucose (70-99) mg/dl POC Glucose (70-99) mg/dl Lactate 2.9 H* (0.4-2.0) mmol/L Calcium (8.5-10.1) mg/dl Phosphorus (2.5-4.9) mg/dl Magnesium (1.8-2.4) mg/dl Total Bilirubin (0.2-1) mg/dl AST (15-37) U/L ALT (12-78) U/L Alkaline Phosphatase (45-117) U/L Troponin I (0-0.045) ng/ml NT-Pro-B Natriuret Pep (0-900) pg/ml Total Protein (6.4-8.2) gm/dl Albumin (3.4-5.0) gm/dl Globulin (2.5-4.0) gm/dl Albumin/Globulin Ratio (0.9-2) Beta-Hydroxybutyric Acd (0.2-2.81) mg/dl Procalcitonin 0.40 (0-0.5) ng/ml Urine Color Urine Appearance (Clear) Urine pH (4.5-7.5) Ur Specific [place] (1.000-1.030) Urine Protein (Negative) Urine Glucose (UA) (Negative) Urine Ketones (Negative) Urine Blood (Negative) Urine Nitrite (Negative) Urine Bilirubin (Negative) Urine Urobilinogen (Negative) Ur Leukocyte Esterase (Negative) COVID-19 Eval Order SARS-CoV-2 (PCR) (Negative) Influenza Type A (PCR) (Neg) Influenza Type B (PCR) (Neg) RSV (RT-PCR) (Neg) 02/27/21 02/27/21 02/27/21 Range/Units 18:22 18:22 19:56 WBC (4.8-10.8) K/uL RBC (4.7-6.1) M/uL Hgb (14.0-18.0) g/dL Hct (42-52) % MCV (80-100) fL MCH (25-34) pg MCHC (32-36) g/dL RDW Std Deviation (36.4-46.3) fL RDW Coeff of Alvarado (11.5-14.5) % Plt Count (130-400) K/uL MPV (7.4-10.4) fL Immature Gran % (Auto) % Neut % (Auto) % Lymph % (Auto) % [place] % (Auto) % Eos % (Auto) % Baso % (Auto) % Neut # (Auto) (1.4-6.5) K/uL Lymph # (Auto) (1.2-3.4) K/uL [place] # (Auto) (0.11-0.59) K/uL Eos # (Auto) (0-0.5) K/uL Baso # (Auto) (0-0.2) K/uL Immature Gran # (Auto) (0.00-0.02) K/uL Platelet Estimate (Normal) Echinocytes PT (9.0-12.0) Seconds INR (0.9-1.1) APTT (21.0-31.0) Seconds PTT Ratio VBG pH (7.36-7.41) VBG pCO2 (38-50) mmHg VBG pO2 mmHg VBG HCO3 mmol/L VBG O2 Saturation % VBG Base Excess mEq/L Barometric Pressure mm/Hg Sodium (136-145) mmol/L Potassium (3.5-5.1) mmol/L Chloride (98-107) mmol/L Carbon Dioxide (21-32) mmol/L Anion Gap (3-11) BUN (7-18) mg/dl Creatinine (0.6-1.4) mg/dl Est Cr Clr Drug Dosing Est GFR ( Amer) Est GFR (Non-Af Amer) BUN/Creatinine Ratio (10-20) Glucose (70-99) mg/dl POC Glucose 400 H* (70-99) mg/dl Lactate 2.2 H* (0.4-2.0) mmol/L Calcium (8.5-10.1) mg/dl Phosphorus (2.5-4.9) mg/dl Magnesium (1.8-2.4) mg/dl Total Bilirubin (0.2-1) mg/dl AST (15-37) U/L ALT (12-78) U/L Alkaline Phosphatase (45-117) U/L Troponin I 33.200 H* (0-0.045) ng/ml NT-Pro-B Natriuret Pep (0-900) pg/ml Total Protein (6.4-8.2) gm/dl Albumin (3.4-5.0) gm/dl Globulin (2.5-4.0) gm/dl Albumin/Globulin Ratio (0.9-2) Beta-Hydroxybutyric Acd (0.2-2.81) mg/dl Procalcitonin (0-0.5) ng/ml Urine Color Urine Appearance (Clear) Urine pH (4.5-7.5) Ur Specific [place] (1.000-1.030) Urine Protein (Negative) Urine Glucose (UA) (Negative) Urine Ketones (Negative) Urine Blood (Negative) Urine Nitrite (Negative) Urine Bilirubin (Negative) Urine Urobilinogen (Negative) Ur Leukocyte Esterase (Negative) COVID-19 Eval Order SARS-CoV-2 (PCR) (Negative) Influenza Type A (PCR) (Neg) Influenza Type B (PCR) (Neg) RSV (RT-PCR) (Neg) 02/27/21 02/27/21 02/27/21 Range/Units 20:21 Unknown Unknown WBC (4.8-10.8) K/uL RBC (4.7-6.1) M/uL Hgb (14.0-18.0) g/dL Hct (42-52) % MCV (80-100) fL MCH (25-34) pg MCHC (32-36) g/dL RDW Std Deviation (36.4-46.3) fL RDW Coeff of Alvarado (11.5-14.5) % Plt Count (130-400) K/uL MPV (7.4-10.4) fL Immature Gran % (Auto) % Neut % (Auto) % Lymph % (Auto) % [place] % (Auto) % Eos % (Auto) % Baso % (Auto) % Neut # (Auto) (1.4-6.5) K/uL Lymph # (Auto) (1.2-3.4) K/uL [place] # (Auto) (0.11-0.59) K/uL Eos # (Auto) (0-0.5) K/uL Baso # (Auto) (0-0.2) K/uL Immature Gran # (Auto) (0.00-0.02) K/uL Platelet Estimate (Normal) Echinocytes PT (9.0-12.0) Seconds INR (0.9-1.1) APTT (21.0-31.0) Seconds PTT Ratio VBG pH (7.36-7.41) VBG pCO2 (38-50) mmHg VBG pO2 mmHg VBG HCO3 mmol/L VBG O2 Saturation % VBG Base Excess mEq/L Barometric Pressure mm/Hg Sodium (136-145) mmol/L Potassium (3.5-5.1) mmol/L Chloride (98-107) mmol/L Carbon Dioxide (21-32) mmol/L Anion Gap (3-11) BUN (7-18) mg/dl Creatinine (0.6-1.4) mg/dl Est Cr Clr Drug Dosing Est GFR ( Amer) Est GFR (Non-Af Amer) BUN/Creatinine Ratio (10-20) Glucose (70-99) mg/dl POC Glucose (70-99) mg/dl Lactate (0.4-2.0) mmol/L Calcium (8.5-10.1) mg/dl Phosphorus (2.5-4.9) mg/dl Magnesium (1.8-2.4) mg/dl Total Bilirubin (0.2-1) mg/dl AST (15-37) U/L ALT (12-78) U/L Alkaline Phosphatase (45-117) U/L Troponin I 35.600 H* (0-0.045) ng/ml NT-Pro-B Natriuret Pep (0-900) pg/ml Total Protein (6.4-8.2) gm/dl Albumin (3.4-5.0) gm/dl Globulin (2.5-4.0) gm/dl Albumin/Globulin Ratio (0.9-2) Beta-Hydroxybutyric Acd (0.2-2.81) mg/dl Procalcitonin (0-0.5) ng/ml Urine Color Urine Appearance (Clear) Urine pH (4.5-7.5) Ur Specific [place] (1.000-1.030) Urine Protein (Negative) Urine Glucose (UA) (Negative) Urine Ketones (Negative) Urine Blood (Negative) Urine Nitrite (Negative) Urine Bilirubin (Negative) Urine Urobilinogen (Negative) Ur Leukocyte Esterase (Negative) COVID-19 Eval Order CovFluRsv at [facility] SARS-CoV-2 (PCR) NEGATIVE (Negative) Influenza Type A (PCR) Negative (Neg) Influenza Type B (PCR) Negative (Neg) RSV (RT-PCR) Negative (Neg) 02/27/21 Range/Units Unknown WBC (4.8-10.8) K/uL RBC (4.7-6.1) M/uL Hgb (14.0-18.0) g/dL Hct (42-52) % MCV (80-100) fL MCH (25-34) pg MCHC (32-36) g/dL RDW Std Deviation (36.4-46.3) fL RDW Coeff of Alvarado (11.5-14.5) % Plt Count (130-400) K/uL MPV (7.4-10.4) fL Immature Gran % (Auto) % Neut % (Auto) % Lymph % (Auto) % [place] % (Auto) % Eos % (Auto) % Baso % (Auto) % Neut # (Auto) (1.4-6.5) K/uL Lymph # (Auto) (1.2-3.4) K/uL [place] # (Auto) (0.11-0.59) K/uL Eos # (Auto) (0-0.5) K/uL Baso # (Auto) (0-0.2) K/uL Immature Gran # (Auto) (0.00-0.02) K/uL Platelet Estimate (Normal) Echinocytes PT (9.0-12.0) Seconds INR (0.9-1.1) APTT (21.0-31.0) Seconds PTT Ratio VBG pH (7.36-7.41) VBG pCO2 (38-50) mmHg VBG pO2 mmHg VBG HCO3 mmol/L VBG O2 Saturation % VBG Base Excess mEq/L Barometric Pressure mm/Hg Sodium (136-145) mmol/L Potassium (3.5-5.1) mmol/L Chloride (98-107) mmol/L Carbon Dioxide (21-32) mmol/L Anion Gap (3-11) BUN (7-18) mg/dl Creatinine (0.6-1.4) mg/dl Est Cr Clr Drug Dosing Est GFR ( Amer) Est GFR (Non-Af Amer) BUN/Creatinine Ratio (10-20) Glucose (70-99) mg/dl POC Glucose (70-99) mg/dl Lactate (0.4-2.0) mmol/L Calcium (8.5-10.1) mg/dl Phosphorus (2.5-4.9) mg/dl Magnesium (1.8-2.4) mg/dl Total Bilirubin (0.2-1) mg/dl AST (15-37) U/L ALT (12-78) U/L Alkaline Phosphatase (45-117) U/L Troponin I (0-0.045) ng/ml NT-Pro-B Natriuret Pep (0-900) pg/ml Total Protein (6.4-8.2) gm/dl Albumin (3.4-5.0) gm/dl Globulin (2.5-4.0) gm/dl Albumin/Globulin Ratio (0.9-2) Beta-Hydroxybutyric Acd (0.2-2.81) mg/dl Procalcitonin (0-0.5) ng/ml Urine Color Yellow Urine Appearance Clear (Clear) Urine pH 5.5 (4.5-7.5) Ur Specific [place] 1.018 (1.000-1.030) Urine Protein 1+ H (Negative) Urine Glucose (UA) Trace H (Negative) Urine Ketones Negative (Negative) Urine Blood 2+ H (Negative) Urine Nitrite Positive A (Negative) Urine Bilirubin Negative (Negative) Urine Urobilinogen Negative (Negative) Ur Leukocyte Esterase Trace H (Negative) COVID-19 Eval Order SARS-CoV-2 (PCR) (Negative) Influenza Type A (PCR) (Neg) Influenza Type B (PCR) (Neg) RSV (RT-PCR) (Neg) Administered Medications Heparin Sodium/Dextrose (Heparin Sodium/Dextrose) 25,000 units in 500 mls @ 20 mls/hr IV .Q24H [facility]; Protocol Stop: 03/29/21 16:59 Last Admin: 02/27/21 18:00 Dose: 1,000 units/hr, 20 mls/hr Documented by: [id number] Cosigned by: [id number] Discontinued Medications Aspirin (Aspirin Chew 324 Mg) 81 mg PO NOW STA Stop: 02/27/21 18:00 Last Admin: 02/27/21 19:03 Dose: 81 mg Documented by: [id number] Furosemide (Furosemide 40 Mg/4 Ml Vial) 40 mg IV NOW STA Stop: 02/27/21 18:08 Last Admin: 02/27/21 20:00 Dose: 40 mg Documented by: [id number] Heparin Sodium (Porcine) (Heparin Sod (Porcine) 1000 Unit/Ml 10 Ml Vial) Confirm Administered Dose 10,000 units .ROUTE .STK-MED ONE Stop: 02/27/21 17:57 Last Admin: 02/27/21 18:00 Dose: 10,000 units Documented by: [id number] Cosigned by: [id number] Insulin Human Regular (Novolin-R Insulin Per Unit Charge) 10 units IV NOW STA Stop: 02/27/21 20:00 Last Admin: 02/27/21 20:17 Dose: 10 units Documented by: [id number] Cosigned by: [id number] Ticagrelor (Ticagrelor 90 Mg Tab) 90 mg PO NOW STA Stop: 02/27/21 18:00 Last Admin: 02/27/21 19:04 Dose: 90 mg Documented by: [id number] Imaging Data Radiologist's Impression: Chest X-Ray 02/27/21 15:52 XR chest 1V portable CLINICAL HISTORY: SEPSIS COMPARISON STUDY: 02/26/2021 FINDINGS: The heart is enlarged.[There are improving asymmetric interstitial opacities. There are linear parenchymal opacities at the left lung base likely subsegmental atelectasis. There are no large pleural effusions. IMPRESSION: Cardiomegaly and improving asymmetric bilateral interstitial opacities ACT 112: Negative or not required by law. Electronically signed by: Francois Stoddard M.D. 02/27/2021 4:25 PM Discharge Plan Visit Data Chief Complaint: Shortness of Breath/Dyspnea Stated Complaint: SOB,CHILLS,2 STENTS PUT IN 02/24/21 ED Provider: Brennen Cole Discharge Problem: Non-ST elevation (NSTEMI) myocardial infarction, ESRD (end stage renal disease), Acute hyperkalemia Patient Disposition: Admitted As Inpatient Discharge Instructions Interventions: ED Discharge Assessment Last Done: 02/27/21 21:10 Forms Stand Alone Forms: [place] Prescriptions Prescriptions: No Action Novolog U-100 Insulin aspart 100 unit/mL solution 180 unit subcut DAILY RF: 0 carvedilol 25 mg tablet 25 mg PO TID Qty: 270 RF: 3 Anoro Ellipta 62.5-25 mcg/actuation blister with device 1 puffs INH DAILY Qty: 60 RF: 5 Novolin N NPH U-100 Insulin 100 unit/mL suspension 180 unit subcut .COMPLEX 90 Days Qty: 170 RF: 3 losartan 100 mg tablet 100 mg PO DAILY Qty: 30 RF: 5 amlodipine 10 mg tablet 10 mg PO DAILY Qty: 90 RF: 3 atorvastatin 80 mg tablet 80 mg PO DAILY Qty: 90 RF: 3 ergocalciferol (vitamin D2) 1,250 mcg (50,000 unit) capsule 50,000 unit PO .COMPLEX Qty: 3 RF: 3 pregabalin 50 mg capsule 50 mg PO DAILY Qty: 30 RF: 5 nortriptyline 50 mg capsule 50 mg PO HS Qty: 90 RF: 3 nitroglycerin 0.4 mg tablet, sublingual 0.4 mg SL Q5M PRN (Reason: chest pain) Qty: 25 RF: 0 ipratropium-albuterol 0.5 mg-3 mg(2.5 mg base)/3 mL solution for nebulization 3 ml inhalation Q4H PRN (Reason: shortness of breath or wheezing) Qty: 2 RF: 0 (DME) OneTouch Ultra Blue Test Strip Strip See Dose Instructions .ROUTE .MEDSUPPLY Qty: 10 RF: 0 (DME) BD Eclipse Luer-Ashok 3 mL 25 x 5/8" syringe See Dose Instructions .ROUTE .MEDSUPPLY Qty: 1 RF: 0 sodium bicarbonate 650 mg tablet 650 mg PO DAILY Qty: 60 RF: 5 (DME) CPAP Machine Misc See Rx Instructions .ROUTE .MEDSUPPLY Qty: 1 RF: 0 methocarbamol 500 mg tablet 500 mg PO TID PRN (Reason: pain) Qty: 90 RF: 1 meclizine 25 mg tablet 25 mg PO TID PRN (Reason: dizziness) Qty: 30 RF: 5 methylprednisolone 4 mg tablets,dose pack 4 mg PO .COMPLEX Qty: 21 RF: 0 isosorbide mononitrate 120 mg tablet extended release 24 hr 120 mg PO DAILY Qty: 30 RF: 2 omeprazole 20 mg capsule,delayed release(DR/EC) 20 mg PO DAILY RF: 0 finasteride 5 mg tablet 5 mg PO DAILY RF: 0 Brilinta 90 mg Tablet 90 mg PO BID@0600,1800 Qty: 60 RF: 11 Renal Caps 1 mg Capsule 1 cap PO QAM Qty: 30 RF: 1 spironolactone 25 mg tablet 25 mg PO DAILY RF: 0 aspirin [Aspirin Low Dose] 81 mg Tablet,Delayed Release (Dr/Ec) 81 mg PO DAILY RF: 0 albuterol sulfate 90 mcg/actuation Hfa Aerosol Inhaler 2 puff INHALATION Q6H PRN (Reason: Shortness Of Breath Or Wheezing) RF: 0 Referrals Referrals: Nathan Peoples MD [Primary Care Provider] -
--- NOTE | 2021-02-27 16:26 | XRay Report ---
XR chest 1V portable CLINICAL HISTORY: SEPSIS COMPARISON STUDY: 02/26/2021 FINDINGS: The heart is enlarged.[There are improving asymmetric interstitial opacities. There are tamie ear parenchymal opacities at the left lung base likely subsegmental atelectasis. There are no large p leural effusions. IMPRESSION: Cardiomegaly and improving asymmetric bilateral interstitial opacities ACT 112: Negative or not required by law. Electronically signed by: Francois Stoddard M.D. 02/27/2021 4:25 PM
[2021-02-27 16:33] LABS: Partial Thromboplastin Time 27.4 Seconds (21.0-31.0); Prothrombin Time 10.3 Seconds (9.0-12.0)
[2021-02-27 16:40] LABS: Alanine Aminotransferase 66 U/L (12-78); Albumin Globulin Ratio 0.8 (0.9-2); Albumin Level 2.8 gm/dl (3.4-5.0); Alkaline Phosphatase 94 U/L (45-117); Aspartate Aminotransferase 211 U/L (15-37); BUN Creatinine Ratio 10.6 (10-20); Bilirubin,Total 1.5 mg/dl (0.2-1); Blood Urea Nitrogen 81 mg/dl (7-18); Calcium 8.4 mg/dl (8.5-10.1); Carbon Dioxide 22 mmol/L (21-32); Chloride 99 mmol/L (98-107); Est GFR (African American) 7.4; Est GFR (Non-African American) 6.4; Globulin 3.7 gm/dl (2.5-4.0); Glucose 339 mg/dl (70-99); Magnesium 2.1 mg/dl (1.8-2.4); NT Pro B Type Natriuretic Pept 13557 pg/ml (0-900); Phosphorus 6.3 mg/dl (2.5-4.9); Sodium 132 mmol/L (136-145); Total Protein 6.5 gm/dl (6.4-8.2)
--- NOTE | 2021-02-27 16:45 | Electrocardiogram Report ---
Test Reason : Blood Pressure : / mmHG Vent. Rate : 129 BPM Atrial Rate : 147 BPM P-R Int : 000 ms QRS Dur : 152 ms QT Int : 372 ms P-R-T Axes : 000 123 -40 degrees QTc Int : 544 ms Poor data quality, interpretation may be adversely affected Sinus rhythm Premature atrial complexes in frequent runs Right bundle branch block Septal infarct (cited on or before 12-JAN-2019) T wave abnormality, consider inferolateral ischemia Abnormal ECG When compared with ECG of 26-FEB-2021 04:35, Premature atrial complexes and runs have increased Confirmed by Jesus Martinez ([id number]) on 02/27/2021 4:45:20 PM Referred By: Confirmed By:Jesus Martinez
[2021-02-27 16:49] LABS: Basophils # (auto) 0.01 K/uL (0-0.2); Basophils % (auto) 0.1 %; Echinocytes 1+; Eosinophils # (auto) 0.05 K/uL (0-0.5); Eosinophils % (auto) 0.4 %; Hematocrit (blood only) 36.7 % (42-52); Hemoglobin 12.3 g/dL (14.0-18.0); Immature Granulocytes # (auto) 0.03 K/uL (0.00-0.02); Immature Granulocytes % (auto) 0.2 %; Lymphocytes # (auto) 1.21 K/uL (1.2-3.4); Lymphocytes % (auto) 9.8 %; Mean Corpuscular Hemoglobin 29.2 pg (25-34); Mean Corpuscular Hgb Conc 33.5 g/dL (32-36); Mean Corpuscular Volume 87.2 fL (80-100); Mean Platelet Volume 12.3 fL (7.4-10.4); Monocytes # (auto) 1.25 K/uL (0.11-0.59); Monocytes % (auto) 10.2 %; Neutrophils # (auto) 9.74 K/uL (1.4-6.5); Neutrophils % (auto) 79.3 %; Platelet Count 121 K/uL (130-400); Platelet Estimate Decreased (Normal); RDW Coefficient of Variation 16.3 % (11.5-14.5); RDW Standard Deviation 52.8 fL (36.4-46.3); Red Blood Count 4.21 M/uL (4.7-6.1); White Blood Count 12.29 K/uL (4.8-10.8)
[2021-02-27] MEDS ORDERED: Heparin IV Adult Wt-Based Low-Dose WITH Bolus Protocol STA (16:54)
[2021-02-27 16:56] LABS: Base Excess VBG -3.7 mEq/L; pH VBG 7.44 (7.36-7.41)
[2021-02-27 16:57] LABS: Beta-Hydroxybutyrate 5.22 mg/dl (0.2-2.81)
[2021-02-27] MEDS ORDERED: HEPARIN SODIUM/DEXTROSE 25,000 UNITS/500 ML BAG IV SCH (17:00)
[2021-02-27 17:56] LABS: Potassium 5.9 mmol/L (3.5-5.1)
[2021-02-27] MEDS ORDERED: HEPARIN SOD (PORCINE) 1000 UNIT/ML ONE (17:56)
[2021-02-27] MEDS ORDERED: TICAGRELOR 90 MG TAB PO STA (17:59)
[2021-02-27] MEDS ORDERED: ASPIRIN CHEW 324 MG PO STA (17:59)
[2021-02-27] MEDS ORDERED: FUROSEMIDE 40 MG/4 ML VIAL IV STA (18:07)
[2021-02-27] MEDS ORDERED: CALCIUM GLUCONATE 1,000 MG/60 ML BAG IV STA (18:07)
[2021-02-27 19:15] LABS: Influenza A virus by PCR Negative (Neg); Influenza B virus by PCR Negative (Neg); RSV by PCR Negative (Neg); SARS CoV2 RNA(COVID-19) InHosp NEGATIVE (Negative)
[2021-02-27] MEDS ORDERED: SODIUM CHLORIDE 0.9% 1000ML 1,000 ML IV PRN (19:36)
[2021-02-27] MEDS ORDERED: ALBUTEROL HFA 8 GM INHALER INH PRN (19:50)
--- NOTE | 2021-02-27 19:55 | Nephrology Consultation ---
Date of Consultation February 27, 2021 Assessment & Plan (1) ESRD (end stage renal disease): * Will provide 2 hours HD tonight to correct hyperkalemia and attempt 2 L UF * Orders have been placed in the EMR and I have spoken w/ the HD RN first line production supervisor * PRP in am (2) NSTEMI (non-ST elevated myocardial infarction): * Currently CP free * On heparin gtt * Trend Troponin * Echocardiogram in am History of Present Illness Reason for Consultation: ESRD, CHF History of Present Illness Mr. Albert is a 70 year old white male who is seen at the request of Dr. Mejias to provide inpatient HD. Medical records in the EMR were reviewed today and are summarized as follows: Mr. Albert has ESRD due to diabetic nephropathy. He underwent L arm AVF creation 11/[address] Goncalves in preparation for HD but has not yet started dialysis. Recently Mr. Albert has been suffering from exertional dyspnea. Cardiac cath 02/09 revealed 100% LAD (distal fills by collateral vessels), 80% L Cx, 80% R main. Mr. Albert met with CT surgery at [facility] as well as [facility] Card[facility]. He chose not to pursue open heart surgery. He underwent PCI of the LAD w/ two drug eluting stents 02/24/21. Post procedure he was started on HD. Mr. Albert was dscharged to home 02/26/21 and presented to the [facility] HD unit today for his first outpatient treatment. He completed 3 hours of the treatment and asked to be taken off early due to sciatic pain. UF volume obtained in unknown at this time. Mr. Albert then presented to the ED where he was found to be hypoxemic and had evidence of NSTEMI. He was assessed by Cardiology and started on a heparin gtt. Follow up echocardiogram is planned for the am. Nephrology evaluation has been requested for emergency HD tonight to help alleviate his CHF PMH: IDDM > 30 years (+ retinopathy s/p retinal laser photocoagulation therapy, peripheral neuropathy, diabetic nephropathy), hyperlipidemia, DRAKE, ASCVD (dobutamine stress test 09/02 negative for ischemia), obesity (BMI 43) Allergies Allergy/AdvReac Type Severity Reaction Status Date / Time No Known Drug Allergies Allergy Unknown Verified 02/27/21 17:26 Home Medications Medication Instructions Recorded Confirmed Type ipratropium 0.5 mg-albuterol 3 mg 3 ml INHALATION Q4H PRN #2 ml 08/01/19 02/27/21 History (2.5 mg base)/3 mL nebulization soln nitroglycerin 0.4 mg sublingual 0.4 mg SL Q5M PRN #25 tab 08/01/19 02/27/21 History tablet blood sugar diagnostic #10 ea 12/14/19 02/27/21 History syringe with needle 3 mL 25 x 5/8" #1 ea 12/14/19 02/27/21 History carvedilol 25 mg tablet 25 mg PO TID #270 tab 02/27/20 02/27/21 Rx umeclidinium 62.5 mcg-vilanterol 1 puffs INH DAILY #60 ea 03/13/20 02/27/21 Rx 25 mcg/actuation powdr for inhalation CPAP Machine #1 ea 03/27/20 02/27/21 Rx Novolin N NPH U-100 Insulin 100 180 unit SUBCUT .COMPLEX 90 Days 09/05/20 02/27/21 Rx unit/mL subcutaneous susp #170 ml NS losartan 100 mg tablet 100 mg PO DAILY #30 tab 09/09/20 02/27/21 Rx amlodipine 10 mg tablet 10 mg PO DAILY #90 tab 09/12/20 02/27/21 Rx methocarbamol 500 mg tablet 500 mg PO TID PRN #90 tab 09/24/20 02/27/21 Rx atorvastatin 80 mg tablet 80 mg PO DAILY #90 tab 09/26/20 02/27/21 Rx sodium bicarbonate 650 mg tablet 650 mg PO DAILY #60 tab 09/26/20 02/27/21 Rx ergocalciferol (vitamin D2) 1,250 50,000 unit PO .COMPLEX #3 cap 10/03/20 02/27/21 Rx mcg (50,000 unit) capsule isosorbide mononitrate 120 mg 120 mg PO DAILY #30 tab 12/12/20 02/27/21 Rx tablet,extended release 24 hr insulin aspart U-100 100 unit/mL 180 unit SUBCUT DAILY ml 12/30/20 02/27/21 History subcutaneous solution pregabalin 50 mg capsule 50 mg PO DAILY #30 cap 01/08/21 02/27/21 Rx meclizine 25 mg tablet 25 mg PO TID PRN #30 tab 02/05/21 02/27/21 Rx methylprednisolone 4 mg tablets in 4 mg PO .COMPLEX #21 ea 02/05/21 02/27/21 Rx a dose pack nortriptyline 50 mg capsule 50 mg PO HS #90 cap 02/05/21 02/27/21 Rx finasteride 5 mg PO DAILY 02/24/21 02/27/21 History omeprazole 20 mg PO DAILY 02/24/21 02/27/21 History B complex with C 20-folic acid 1 cap PO QAM #30 cap 02/26/21 02/27/21 Rx [Renal Caps] ticagrelor [Brilinta] 90 mg PO BID@0600,1800 #60 tab 02/26/21 02/27/21 Rx albuterol sulfate 2 puff INHALATION Q6H PRN 02/27/21 02/27/21 History aspirin [Aspirin Low Dose] 81 mg PO DAILY 02/27/21 02/27/21 History spironolactone 25 mg PO DAILY 02/27/21 02/27/21 History Patient History Medical History BPH (benign prostatic hyperplasia) CAD (coronary artery disease) Callus Chronic back pain Chronic low back pain Chronic obstructive pulmonary disease Diabetes mellitus with diabetic polyneuropathy Diabetes mellitus, type 2 Insulin 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 Hyperlipidemia Hypertension Lumbar radicular pain Myocardial Infarction 1994 DRAKE (obstructive sleep apnea) Osteoarthritis PVD (peripheral vascular disease) Sleep apnea CPAP SOB (shortness of breath) on exertion Spinal stenosis of lumbar region Surgical History H/O colonoscopy History of amputation Right Little Toe Hx of vascular surgery X 2-TOTAL STENT3 X 3-R LRG Hx of vascular surgery AVF L ARM-HAS NEVER HAD DIALYSIS Family History Other No family history of adverse response to anesthesia No family history of bleeding disorder No pertinent family history in first degree relatives Denies family history of Ovarian cancer Prostate cancer Coronary heart disease Myocardial infarction Breast cancer Colorectal cancer Social History Smoking Status: Never smoker Age Started Using Tobacco: 18; Age Quit Using Tobacco: 19; packs per day: 0.25; Years Smoked: 1; Cigarettes Per Day: 5; Number of Years Since Quit: 50; Second Hand Exposure: No; Hx Alcohol Use: No Hx Substance Use: No Preferred Language: Kazakh Communication Ability: Effective Hearing Ability: Use of Hearing Aid Expeller Worker Required: No Beliefs That Will Affect Care: None marital status: Current Living Situation: Spouse current occupational status: retired Feels Safe at Home: Yes Childhood Exposure to Second-Hand Smoke: No caffeine: Yes Dental Care, Regularly: Yes Physical Activity Frequency: Does not Exercise Seatbelt Use: always Sunscreen Use: No Assistive Devices: Hearing Aid - Right Review of Systems Constitutional: no fever Eyes: no problem reported Ear, Nose, Mouth, Throat: no problem reported Respiratory: + dyspnea Cardiovascular: + edema; no chest pain Gastrointestinal: no abdominal pain and no nausea Musculoskeletal: no back pain Neurologic: no dizziness and no confusion Physical Exam Constitutional: + in distress (requires bipap therapy) Eyes: PERRL, conjunctivae normal, anicteric sclerae ENMT: external ear and nose normal, oropharynx normal Neck: trachea midline, no thyromegaly Respiratory: + tachypneic Auscultation: + rales Cardiovascular: Rate/Rhythm: + tachycardic Gastrointestinal (Abdomen): normal bowel sounds, soft, nontender, no hepatosplenomegaly Musculoskeletal: Extremities: no cyanosis Neurologic: awake; not confused Results & Data ([facility]) Vital Signs (Past 12 Hours) Vital Signs Temp Pulse Pulse Resp BP BP Pulse Ox 02/27/21 17:00 79 79 22 113/57 L 98 02/27/21 16:06 84 26 H 98 02/27/21 15:17 37.2 C 101 H 24 112/97 98 Laboratory Tests 02/27/21 02/27/21 15:58 15:58 WBC 12.29 H Hgb 12.3 L Hct 36.7 L Plt Count 121 L Sodium 132 L Potassium 5.9 H D Chloride 99 Carbon Dioxide 22 BUN 81 H Creatinine 7.69 H* D Calcium 8.4 L Troponin I 36.500 H* NT-Pro-B Natriuret Pep 11943 H PG Care Time/CCT Total # of Minutes Spent Total Time Spent with Patient: Total time spent is greater than 50% in coordination of care (as documented) at patient's floor/unit and/or counseling patient: Coding Level of Care Code 67244 Inpt Consult Level 5 Diagnoses ESRD (end stage renal disease) N18.6 NSTEMI (non-ST elevated myocardial infarction) I21.4
[2021-02-27] MEDS ORDERED: NovoLIN-R INSULIN PER UNIT CHARGE IV STA (19:59)
--- NOTE | 2021-02-27 20:33 | History & Physical Report ---
Date of Service February 27, 2021 Assessment & Plan (1) NSTEMI (non-ST elevated myocardial infarction): Troponin 33 difficult to ascertain severity with renal disease and post cath procedure - heparin drip with DAPT, continue Brilinta and ASA - Trend Troponin and ECG - see what troponin level is post dialysis - continue to support BP and HR- decrease double product if HTN - Continue high dose atorvastatin 80mg - Continue Carvedilol 25 mg TID- Dose verified on recent discharge summary - Continue Amlodipine - Continue ARB- Losartan 100mg Daily - Keep patient negative fluid balance- Continue spironolactone - Cardiology consulted (2) ESRD (end stage renal disease): Nephrology consulted to assist with volume removal, uremia, and mild hyperkalemia - Appreciate nephrology assistance - Continue renal caps - Continue Vitamin D - Support hemodynamics - Follow clearing of troponin level - Follow orthopnea and edema (3) Coronary artery disease: As above, 2 JACOB to proximal and mid LAD, remains with residual RCA disease (4) Hypertension: - Continue Carvedilol 25 mg TID- Dose verified on recent discharge summary - Continue Amlodpine - Continue ARB- Losartan 100mg Daily - Goal <130 (5) Type 1 diabetes mellitus: Uncontrolled- with CAD, CKD, neuropathy - 400 BG- 10units IV now - Sliding scale with bolus dosing - Basal dosing - Pharmacy consulted for closer control Goal 140-180 - No gap on admission - Bicarb 22 (6) Chronic low back pain: - Lidocaine patch TD - Continue Methocarbamol 500 mg TID PRN (7) Sleep apnea: DRAKE- BIPAP at home 04/08 - liberal use of BiPAP with orthopnea - use while napping, sleeping, or to relieve dyspnea (8) Chronic obstructive pulmonary disease: Continue Umeclidium/Lanterol, Albuterol puffer prn, Combivent nebs prn (9) Abnormal ECG: ECG irregular with RBBB- atrial tachycardia or atrial fibrillation or uncompensated PACs- This was present following his discharge and rythm now with more discernable p waves but still variable. - Currently on heparin drip. - Follow for rythm control or anticoagulation- appreciate cards assitance. History of Present Illness Chief Complaint: dizziness Primary Care Provider: Thaddeus Peoples MD 70 YOM with past medical history of COVID, NSTEMI, CABG, CAD with 2 JACOB stents on February, ICM, Sciatica, Lumbar radiculopathy, HTN, DM on insulin, COPD, HLD, Obesity, DRAKE. Patient came to the emergency room today following dialysis where he had to stop after 2 hours secondary to his sciatica pain. He then experienced some chest tightness lower left breast, and some dyspnea. He then went home and felt dizzy so his made him come to the EMD. In the ER he again was short of breath, was placed on BiPAP, and troponin were checked. His Troponin level was 33 and he was started on a Heparin drip, EMD provider discussed the case with Dr. Muñoz. Patient also with weight gain and edema to his lower extremities, which is likely chronic and acute since he did not finish dialysis today. We have also contacted nephrology to evaluate to continue dialysis for current symptom of dyspnea and hyperkalemia as well. The patient is hyperglycemic at 400 on my evaluation with no gap. The patient will be admitted to telemetry, continue to evaluate troponin, heparin drip with his current DAPT, Bipap support and following acid/base/renal support. Allergies Allergy/AdvReac Type Severity Reaction Status Date / Time No Known Drug Allergies Allergy Unknown Verified 02/27/21 17:26 Home Medications Medication Instructions Recorded Confirmed Type ipratropium 0.5 mg-albuterol 3 mg 3 ml INHALATION Q4H PRN #2 ml 08/01/19 02/27/21 History (2.5 mg base)/3 mL nebulization soln nitroglycerin 0.4 mg sublingual 0.4 mg SL Q5M PRN #25 tab 08/01/19 02/27/21 History tablet blood sugar diagnostic #10 ea 12/14/19 02/27/21 History syringe with needle 3 mL 25 x 5/8" #1 ea 12/14/19 02/27/21 History carvedilol 25 mg tablet 25 mg PO TID #270 tab 02/27/20 02/27/21 Rx umeclidinium 62.5 mcg-vilanterol 1 puffs INH DAILY #60 ea 03/13/20 02/27/21 Rx 25 mcg/actuation powdr for inhalation CPAP Machine #1 ea 03/27/20 02/27/21 Rx Novolin N NPH U-100 Insulin 100 180 unit SUBCUT .COMPLEX 90 Days 09/05/20 02/27/21 Rx unit/mL subcutaneous susp #170 ml NS losartan 100 mg tablet 100 mg PO DAILY #30 tab 09/09/20 02/27/21 Rx amlodipine 10 mg tablet 10 mg PO DAILY #90 tab 09/12/20 02/27/21 Rx methocarbamol 500 mg tablet 500 mg PO TID PRN #90 tab 09/24/20 02/27/21 Rx atorvastatin 80 mg tablet 80 mg PO DAILY #90 tab 09/26/20 02/27/21 Rx sodium bicarbonate 650 mg tablet 650 mg PO DAILY #60 tab 09/26/20 02/27/21 Rx ergocalciferol (vitamin D2) 1,250 50,000 unit PO .COMPLEX #3 cap 10/03/20 02/27/21 Rx mcg (50,000 unit) capsule isosorbide mononitrate 120 mg 120 mg PO DAILY #30 tab 12/12/20 02/27/21 Rx tablet,extended release 24 hr insulin aspart U-100 100 unit/mL 180 unit SUBCUT DAILY ml 12/30/20 02/27/21 History subcutaneous solution pregabalin 50 mg capsule 50 mg PO DAILY #30 cap 01/08/21 02/27/21 Rx meclizine 25 mg tablet 25 mg PO TID PRN #30 tab 02/05/21 02/27/21 Rx methylprednisolone 4 mg tablets in 4 mg PO .COMPLEX #21 ea 02/05/21 02/27/21 Rx a dose pack nortriptyline 50 mg capsule 50 mg PO HS #90 cap 02/05/21 02/27/21 Rx finasteride 5 mg PO DAILY 02/24/21 02/27/21 History omeprazole 20 mg PO DAILY 02/24/21 02/27/21 History B complex with C 20-folic acid 1 cap PO QAM #30 cap 02/26/21 02/27/21 Rx [Renal Caps] ticagrelor [Brilinta] 90 mg PO BID@0600,1800 #60 tab 02/26/21 02/27/21 Rx albuterol sulfate 2 puff INHALATION Q6H PRN 02/27/21 02/27/21 History aspirin [Aspirin Low Dose] 81 mg PO DAILY 02/27/21 02/27/21 History spironolactone 25 mg PO DAILY 02/27/21 02/27/21 History Past Med/Surg History Medical History (Updated 02/28/21 @ 10:34 by Andreas Mejias) BPH (benign prostatic hyperplasia) CAD (coronary artery disease) Callus Chronic back pain Chronic low back pain Chronic obstructive pulmonary disease Diabetes mellitus with diabetic polyneuropathy Diabetes mellitus, type 2 Insulin dependent ESRD (end stage renal disease) 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 Hyperlipidemia Hypertension Lumbar radicular pain Myocardial Infarction 1994 DRAKE (obstructive sleep apnea) Osteoarthritis PVD (peripheral vascular disease) Sleep apnea CPAP SOB (shortness of breath) on exertion Spinal stenosis of lumbar region Surgical History (Updated 02/28/21 @ 10:34 by Andreas Mejias) H/O colonoscopy History of amputation Right Little Toe Hx of vascular surgery X 2-TOTAL STENT3 X 3-R LRG Hx of vascular surgery AVF L ARM Family History Other No family history of adverse response to anesthesia No family history of bleeding disorder No pertinent family history in first degree relatives Denies family history of Ovarian cancer Prostate cancer Coronary heart disease Myocardial infarction Breast cancer Colorectal cancer Social History Smoking Status: Never smoker Age Started Using Tobacco: 18; Age Quit Using Tobacco: 19; packs per day: 0.25; Years Smoked: 1; Cigarettes Per Day: 5; Number of Years Since Quit: 50; Second Hand Exposure: No; Hx Alcohol Use: No Hx Substance Use: No Preferred Language: [place] Communication Ability: Effective Hearing Ability: Use of Hearing Aid Seasonal [employer] Required: No Beliefs That Will Affect Care: None marital status: Current Living Situation: Spouse current occupational status: retired Feels Safe at Home: Yes Childhood Exposure to Second-Hand Smoke: No caffeine: Yes Dental Care, Regularly: Yes Physical Activity Frequency: Does not Exercise Seatbelt Use: always Sunscreen Use: No Assistive Devices: Cane, CPAP and Hearing Aid - Bilateral Review of Systems Review of Systems: REVIEW OF SYSTEMS: Constitutional: (+) chills; No fever, sweats Eyes: No diplopia, no worsening or blurred vision ENT: normal hearing, no trouble swallowing Respiratory: (+) dyspnea at rest and on exertion, orthopnea; No cough, sputum, Cardiovascular: (+) chest pain, tightness or palpitations Abdomen: No pain, nausea, vomiting, diarrhea or constipation Musculoskeletal: (+) lumbar and sciatic pain, No calf pain, swelling Neurologic: No weakness, numbness/tingling, or balance problems Psychiatric: No anxiety or depression Skin: (+) small open area to shins, No rash or itch Physical Exam Physical Exam: PHYSICAL EXAM: General: awake, alert, no apparent distress Head: Normocephalic, atraumatic ENT: PERRL, EOMI, no pharyngeal exudate, mucous membranes moist Neuro: AAO x 3, speech clear and appropriate, strength intact bilaterally 5/5, sensation intact and equal all extremities and dermatomes, no pronator drift Chest: equal rise and fall of the chest, dyspneic and forced expiration when lying flat, no heaves or thrills, Crackles to bilateral bases on auscultation, BiPAP discontinued and placed to NC 2L Cardiac: Regular rate and rhythm, telemetry reviewed, skin warm dry, cap refill <3 seconds, peripheral pulses +2 no JVD, no murmur, no JVD, (+) 2 edema, left arm dialysis fistula with good thrill GI: NABS x 4 quadrants, soft, nontender to palpation, no rebound, guarding or tenderness : Does make urine voiding, no pain, no CVA tenderness, Extremities: Normal inspection, no peripheral edema or erythema, calfs nontender to palpation Psych: Normal mood and affect Skin: no rash or erythema, old scar on right leg from CABG, small area of abrasion that is lightly bleeding from scratch. Results & Data Results & Data ([facility]) Vital Signs (Past 12 Hours) Vital Signs Temp Pulse Pulse Resp BP BP Pulse Ox 02/27/21 19:41 77 22 132/63 96 02/27/21 17:00 79 79 22 113/57 L 98 02/27/21 16:06 84 26 H 98 02/27/21 15:17 37.2 C 101 H 24 112/97 98 Laboratory Results Abnormal lab results 02/27/21 02/27/21 02/27/21 Range/Units 15:58 15:58 15:58 WBC 12.29 H (4.8-10.8) K/uL RBC 4.21 L (4.7-6.1) M/uL Hgb 12.3 L (14.0-18.0) g/dL Hct 36.7 L (42-52) % RDW Std Deviation 52.8 H (36.4-46.3) fL RDW Coeff of Alvarado 16.3 H (11.5-14.5) % Plt Count 121 L (130-400) K/uL MPV 12.3 H (7.4-10.4) fL Neut # (Auto) 9.74 H (1.4-6.5) K/uL [place] # (Auto) 1.25 H (0.11-0.59) K/uL Immature Gran # (Auto) 0.03 H (0.00-0.02) K/uL Platelet Estimate Decreased L (Normal) VBG pH (7.36-7.41) VBG pCO2 (38-50) mmHg Sodium 132 L (136-145) mmol/L Potassium 5.9 H D (3.5-5.1) mmol/L BUN 81 H (7-18) mg/dl Creatinine 7.69 H* D (0.6-1.4) mg/dl Glucose 339 H* (70-99) mg/dl POC Glucose (70-99) mg/dl Lactate 2.9 H* (0.4-2.0) mmol/L Calcium 8.4 L (8.5-10.1) mg/dl Phosphorus 6.3 H (2.5-4.9) mg/dl Total Bilirubin 1.5 H (0.2-1) mg/dl AST 211 H (15-37) U/L Troponin I 36.500 H* (0-0.045) ng/ml NT-Pro-B Natriuret Pep 94816 H (0-900) pg/ml Albumin 2.8 L (3.4-5.0) gm/dl Albumin/Globulin Ratio 0.8 L (0.9-2) Beta-Hydroxybutyric Acd 5.22 H (0.2-2.81) mg/dl 02/27/21 02/27/21 02/27/21 Range/Units 16:37 18:22 18:22 WBC (4.8-10.8) K/uL RBC (4.7-6.1) M/uL Hgb (14.0-18.0) g/dL Hct (42-52) % RDW Std Deviation (36.4-46.3) fL RDW Coeff of Alvarado (11.5-14.5) % Plt Count (130-400) K/uL MPV (7.4-10.4) fL Neut # (Auto) (1.4-6.5) K/uL [place] # (Auto) (0.11-0.59) K/uL Immature Gran # (Auto) (0.00-0.02) K/uL Platelet Estimate (Normal) VBG pH 7.44 H (7.36-7.41) VBG pCO2 29 L (38-50) mmHg Sodium (136-145) mmol/L Potassium (3.5-5.1) mmol/L BUN (7-18) mg/dl Creatinine (0.6-1.4) mg/dl Glucose (70-99) mg/dl POC Glucose (70-99) mg/dl Lactate 2.2 H* (0.4-2.0) mmol/L Calcium (8.5-10.1) mg/dl Phosphorus (2.5-4.9) mg/dl Total Bilirubin (0.2-1) mg/dl AST (15-37) U/L Troponin I 33.200 H* (0-0.045) ng/ml NT-Pro-B Natriuret Pep (0-900) pg/ml Albumin (3.4-5.0) gm/dl Albumin/Globulin Ratio (0.9-2) Beta-Hydroxybutyric Acd (0.2-2.81) mg/dl 02/27/21 Range/Units 19:56 WBC (4.8-10.8) K/uL RBC (4.7-6.1) M/uL Hgb (14.0-18.0) g/dL Hct (42-52) % RDW Std Deviation (36.4-46.3) fL RDW Coeff of Alvarado (11.5-14.5) % Plt Count (130-400) K/uL MPV (7.4-10.4) fL Neut # (Auto) (1.4-6.5) K/uL [place] # (Auto) (0.11-0.59) K/uL Immature Gran # (Auto) (0.00-0.02) K/uL Platelet Estimate (Normal) VBG pH (7.36-7.41) VBG pCO2 (38-50) mmHg Sodium (136-145) mmol/L Potassium (3.5-5.1) mmol/L BUN (7-18) mg/dl Creatinine (0.6-1.4) mg/dl Glucose (70-99) mg/dl POC Glucose 400 H* (70-99) mg/dl Lactate (0.4-2.0) mmol/L Calcium (8.5-10.1) mg/dl Phosphorus (2.5-4.9) mg/dl Total Bilirubin (0.2-1) mg/dl AST (15-37) U/L Troponin I (0-0.045) ng/ml NT-Pro-B Natriuret Pep (0-900) pg/ml Albumin (3.4-5.0) gm/dl Albumin/Globulin Ratio (0.9-2) Beta-Hydroxybutyric Acd (0.2-2.81) mg/dl Diagnostic Findings XR chest 1V portable CLINICAL HISTORY: SEPSIS COMPARISON STUDY: 02/26/2021 FINDINGS: The heart is enlarged.[There are improving asymmetric interstitial opacities. There are linear parenchymal opacities at the left lung base likely subsegmental atelectasis. There are no large pleural effusions. IMPRESSION: Cardiomegaly and improving asymmetric bilateral interstitial opacities XR chest 1V portable HISTORY: 70 years-old Male CHF acute shortness of breath with congestive heart failure COMPARISON: Chest radiograph 02/25/2021 TECHNIQUE: Portable AP view of the chest FINDINGS: Cardiomediastinal and hilar silhouettes are unchanged. Left greater than right interstitial opacities with ill-defined left lung airspace densities. Mildly improved aeration of the bilateral lungs. No pneumothorax or large pleural effusion. Degenerative changes of the shoulders and spine. IMPRESSION: Mildly improved aeration of the lungs with persistent left greater than right interstitial opacities with left lung base predominant consolidation. Asymmetric pulmonary edema versus pneumonia considered. Medications Administered Heparin Sodium/Dextrose (Heparin Sodium/Dextrose) 25,000 units in 500 mls @ 20 mls/hr IV .Q24H [facility]; Protocol Stop: 03/29/21 16:59 Last Admin: 02/27/21 18:00 Dose: 1,000 units/hr, 20 mls/hr Documented by: [id number] Cosigned by: [id number] Discontinued Medications Aspirin (Aspirin Chew 324 Mg) 81 mg PO NOW STA Stop: 02/27/21 18:00 Last Admin: 02/27/21 19:03 Dose: 81 mg Documented by: [id number] Furosemide (Furosemide 40 Mg/4 Ml Vial) 40 mg IV NOW STA Stop: 02/27/21 18:08 Last Admin: 02/27/21 20:00 Dose: 40 mg Documented by: [id number] Heparin Sodium (Porcine) (Heparin Sod (Porcine) 1000 Unit/Ml 10 Ml Vial) Confirm Administered Dose 10,000 units .ROUTE .STK-MED ONE Stop: 02/27/21 17:57 Last Admin: 02/27/21 18:00 Dose: 10,000 units Documented by: [id number] Cosigned by: [id number] Insulin Human Regular (Novolin-R Insulin Per Unit Charge) 10 units IV NOW STA Stop: 02/27/21 20:00 Last Admin: 02/27/21 20:17 Dose: 10 units Documented by: [id number] Cosigned by: [id number] Ticagrelor (Ticagrelor 90 Mg Tab) 90 mg PO NOW STA Stop: 02/27/21 18:00 Last Admin: 02/27/21 19:04 Dose: 90 mg Documented by: [id number] Home Medications ipratropium 0.5 mg-albuterol 3 mg (2.5 mg base)/3 mL nebulization soln 3 ml INHALATION Q4H PRN #2 ml 08/01/19 [History Confirmed 02/27/21] nitroglycerin 0.4 mg sublingual tablet 0.4 mg SL Q5M PRN #25 tab 08/01/19 [History Confirmed 02/27/21] blood sugar diagnostic #10 ea 12/14/19 [History Confirmed 02/27/21] syringe with needle 3 mL 25 x 5/8" #1 ea 12/14/19 [History Confirmed 02/27/21] carvedilol 25 mg tablet 25 mg PO TID #270 tab 02/27/20 [Rx Confirmed 02/27/21] umeclidinium 62.5 mcg-vilanterol 25 mcg/actuation powdr for inhalation 1 puffs INH DAILY #60 ea 03/13/20 [Rx Confirmed 02/27/21] CPAP Machine #1 ea 03/27/20 [Rx Confirmed 02/27/21] Novolin N NPH U-100 Insulin 100 unit/mL subcutaneous susp 180 unit SUBCUT .COMPLEX 90 Days #170 ml NS 09/05/20 [Rx Confirmed 02/27/21] losartan 100 mg tablet 100 mg PO DAILY #30 tab 09/09/20 [Rx Confirmed 02/27/21] amlodipine 10 mg tablet 10 mg PO DAILY #90 tab 09/12/20 [Rx Confirmed 02/27/21] methocarbamol 500 mg tablet 500 mg PO TID PRN #90 tab 09/24/20 [Rx Confirmed 02/27/21] atorvastatin 80 mg tablet 80 mg PO DAILY #90 tab 09/26/20 [Rx Confirmed 02/27/21] sodium bicarbonate 650 mg tablet 650 mg PO DAILY #60 tab 09/26/20 [Rx Confirmed 02/27/21] ergocalciferol (vitamin D2) 1,250 mcg (50,000 unit) capsule 50,000 unit PO .COMPLEX #3 cap 10/03/20 [Rx Confirmed 02/27/21] isosorbide mononitrate 120 mg tablet,extended release 24 hr 120 mg PO DAILY #30 tab 12/12/20 [Rx Confirmed 02/27/21] insulin aspart U-100 100 unit/mL subcutaneous solution 180 unit SUBCUT DAILY ml 12/30/20 [History Confirmed 02/27/21] pregabalin 50 mg capsule 50 mg PO DAILY #30 cap 01/08/21 [Rx Confirmed 02/27/21] meclizine 25 mg tablet 25 mg PO TID PRN #30 tab 02/05/21 [Rx Confirmed 02/27/21] methylprednisolone 4 mg tablets in a dose pack 4 mg PO .COMPLEX #21 ea 02/05/21 [Rx Confirmed 02/27/21] nortriptyline 50 mg capsule 50 mg PO HS #90 cap 02/05/21 [Rx Confirmed 02/27/21] finasteride 5 mg PO DAILY 02/24/21 [History Confirmed 02/27/21] omeprazole 20 mg PO DAILY 02/24/21 [History Confirmed 02/27/21] B complex with C 20-folic acid [Renal Caps] 1 cap PO QAM #30 cap 02/26/21 [Rx Confirmed 02/27/21] ticagrelor [Brilinta] 90 mg PO BID@0600,1800 #60 tab 04/07/21 [Rx Confirmed 02/27/21] albuterol sulfate 2 puff INHALATION Q6H PRN 02/27/21 [History Confirmed 02/27/21] aspirin [Aspirin Low Dose] 81 mg PO DAILY 02/27/21 [History Confirmed 02/27/21] spironolactone 25 mg PO DAILY 02/27/21 [History Confirmed 02/27/21] Active Medications Albuterol (Albuterol Hfa 8 Gm Inhaler) 2 puffs INH Q6H PRN PRN Reason: Shortness Of Breath Or Wheezing Stop: 03/29/21 19:49 Heparin Sodium/Dextrose (Heparin Sodium/Dextrose) 25,000 units in 500 mls @ 20 mls/hr IV .Q24H [facility]; Protocol Stop: 03/29/21 16:59 Last Admin: 02/27/21 18:00 Dose: 1,000 units/hr, 20 mls/hr Documented by: Sodium Chloride (Nss 1000ml) 1,000 mls @ 0 mls/hr IV .Q0M PRN PRN Reason: For Hemodialysis Use ONLY Stop: 02/28/21 01:35 Lidocaine (Lidocaine 5% 1 Patch) 1 patch TD QAM [facility] Stop: 03/30/21 08:59 Miscellaneous (Remove Lidoderm Patch) 1 ea N/A DAILY@2100 [facility] Stop: 03/29/21 20:59 ECG Additional Comments: Sinus rhythm Premature atrial complexes in frequent runs Right bundle branch block Septal infarct (cited on or before 12-JAN-2019) T wave abnormality, consider inferolateral ischemia Abnormal ECG When compared with ECG of 26-FEB-2021 04:35, Premature atrial complexes and runs have increased Code Status & VTE Plan Code Status CODE: DNR/DNI - Will use BIPAP/CPAP VTE: Therapuetic heparin drip VTE Prophylaxis Plan VTE Prophylaxis will be ordered: Yes Supervising Physician Co-Signing Physician Notes Attending Attestation and Admit Note: Pt seen/examined, chart reviewed, care plan d/w DAXA Cottrell. I agree w/ the dacosta components of his admission documentation. 71yo male with morbid obesity, ESRD with recent initiation of HD, CAD s/p LAD stent earlier this week by Dr Muñoz, DRAKE, T2DM - presents after feeling poorly after HD today. Unfortunately the patient's HD session today was cut short due to sciatica pain. Uncertain amount of fluid removed. After HD he had vague left sided chest discomfort/tightness that lasted several minutes then resolved. He also felt dizzy and lightheaded. Through the day today he has been dyspneic and orthopneic. Upon ER presentation today he was placed on BiPAP and troponin was found to be 36.5. CXR with pulmonary edema. K 5.9. Dr Muñoz from cardiology was consulted who will cath him tomorrow. Dr Lopez was stat consulted for HD tonight due to volume overload, dyspnea, and high potassium. During my assessment he had no chest pain. PMH, PSH, allergies, meds, sochx, famhx - reviewed VSS except tachypnea present gen - obese, tachypneic, mild retractions, orthopneic - can talk in complete sentences neck - JVD present heart - tachy, s1 s2, 2/6 TERRELL lungs - basilar rales b/l, poor air movement abd - BS+, NT, mild distension (fluid?) ext - 1-2+ edema b/l vasc - left arm AVF with bruit labs reviewed EKG review - NSR, PACs, inferior ST changes; anterior ST changes cxr reviewed A/P: 1. NSTEMI - heparin drip, cont DAPT, BB, statin, imdur, ARB; trend trops; cath in am; appreciate cards consult; due to RCA disease?? 2. volume overload 2nd to ESRD and shortened HD session in setting of #1 - spoke with Dr Lopez, to have HD session TONIGHT for volume removal and K red uction 3. hyperkalemia - 2nd ESRD - HD tonight 4. acute hypoxic resp failure - 2nd pulmonary edema/volume overload - BIPAP and/or NC - HD tonight 5. T2DM - pharmacy assistance appreciated; use same scales that were utilized a few days ago 6. morbid obesity BMI 45 Andreas Mejias MD PG Care Time/CCT Total # of Minutes Spent Total Time Spent with Patient: Total time spent is greater than 50% in coordination of care (as documented) at patient's floor/unit and/or counseling patient: Coding Level of Care Code 29399 Initial Inpt Care Lvl 3 Diagnoses NSTEMI (non-ST elevated myocardial infarction) I21.4 ESRD (end stage renal disease) N18.6 Coronary artery disease I25.10 Associated angina: without angina Coronary Disease-Associated Artery/Lesion type: sioux artery [place] vs. transplanted heart: sioux heart Hypertension I10 Hypertension type: essential hypertension Type 1 diabetes mellitus E10.69 Diabetes mellitus complication status: with other specified complication Chronic low back pain M54.40; G89.29 Back pain laterality: unspecified Sciatica laterality: sciatica laterality unspecified Sciatica presence: with sciatica Sleep apnea G47.33 Sleep apnea type: obstructive Chronic obstructive pulmonary disease J44.9 COPD type: unspecified COPD Abnormal ECG R94.31 (1) Sleep apnea Sleep apnea type: obstructive Qualified Code(s): G47.33 - Obstructive sleep apnea (adult) (pediatric) (2) Chronic low back pain Back pain laterality: unspecified Sciatica laterality: sciatica laterality unspecified Sciatica presence: with sciatica Qualified Code(s): M54.40 - Lumbago with sciatica, unspecified side; G89.29 - Other chronic pain (3) Type 1 diabetes mellitus Diabetes mellitus complication status: with other specified complication Qualified Code(s): E10.69 - Type 1 diabetes mellitus with other specified complication (4) Coronary artery disease Associated angina: without angina Coronary Disease-Associated Artery/Lesion type: sioux artery [place] vs. transplanted heart: sioux heart Qualified Code(s): I25.10 - Atherosclerotic heart disease of sioux coronary artery without angina pectoris (5) Chronic obstructive pulmonary disease COPD type: unspecified COPD Qualified Code(s): J44.9 - Chronic obstructive pulmonary disease, unspecified (6) Hypertension Hypertension type: essential hypertension Qualified Code(s): I10 - Essential (primary) hypertension
[2021-02-27] MEDS ORDERED: PHARMACY GLYCEMIC MGMT CONSULT STA (20:49)
[2021-02-27 20:52] LABS: Appearance Urine Clear (Clear); Bacteria Urine Automated 1+ (Negative); Bilirubin Urine Negative (Negative); Blood Urine 2+ (Negative); Color Urine Yellow; Glucose Urine UA Trace (Negative); Ketones Urine Negative (Negative); Leukocyte Esterase Urine Trace (Negative); Nitrite Urine Positive (Negative); Protein Urine 1+ (Negative); RBC Urine Automated 0-4 /hpf (0-4); Specific Gravity Urine 1.018 (1.000-1.030); Urobilinogen Urine Negative (Negative); pH Urine 5.5 (4.5-7.5)
[2021-02-27] MEDS ORDERED: ALBUT/IPRATROP 3MG/0.5MG NEB 3 ML VIAL INH PRN (21:26)
--- NOTE | 2021-02-27 21:37 | Cardiology Consultation ---
Date of Consultation February 27, 2021 Assessment & Plan (1) Coronary artery disease: Post PCI with 2 JACOB to proximal to mid LAD Residual severe RCA disease Elevated troponin 2. End-stage renal disease 3. Frequent atrial ectopy/PAT 4. Ischemic cardiomyopathy -- LVEF 35-40% 5. Type 1 DM Troponin elevated on admission but downtrending, no chest pain today. No ST elevation on ECG. Low suspicion symptoms secondary to stent thrombosis. Upon review of prior recent coronary angiography question whether troponin elevation secondary to branch vessel obstruction (OM1) at time of initial procedure. No indication for urgent cardiac catheterization at present. Agree with heparin infusion overnight Continue DAPT with aspirin, ticagrelor Continue home beta-kayleen for PAT Spoke with Dr. Lopez. To undergo additional hemodialysis tonight for volume management. Continue to trend troponin and repeat echocardiogram in a.m. Keep n.p.o. past midnight. Will reassess need for repeat cardiac catheterization in a.m. History of Present Illness History of Present Illness Mr. Albert is a 70-year-old man with a history of coronary artery disease post recent PCI who returns 1 day after discharge with dyspnea and inability to tolerate dialysis. Patient with multivessel coronary artery disease, ischemic cardiomyopathy with EF of 35 to 40%, type 1 diabetes, hypertension, DRAKE, frequent atrial ectopy/PAT and end-stage renal disease now on dialysis. Patient underwent planned PCI to occluded mid LAD with 2 overlapping drug- eluting stents on 02/24/2021. Post procedure had chest pain overnight with wors ening shortness of breath. Started on dialysis the following day. Had no additional chest pain during admission. On hospital day 3 was feeling better and discharged home. Attempted to undergo dialysis today but unable to tolerate due to back/hip pain which he attributed to sciatica and worsening shortness of breath. Denied any chest pain today. states that he was increasingly weak at home. Questionable shaking chills. On presentation to ED afebrile, tachypneic and tachycardic. Initially placed on BiPAP. Chest x-ray showed improving asymmetric bilateral opacities. proBNP 13,000. Troponin 36, down to 33 on second check. ECG showed PACs with frequent PAT heart rates of 129. Had old right bundle branch block with unchanged anterior and inferolateral T wave inversions. Allergies Allergy/AdvReac Type Severity Reaction Status Date / Time No Known Drug Allergies Allergy Unknown Verified 02/27/21 17:26 Home Medications Medication Instructions Recorded Confirmed Type ipratropium 0.5 mg-albuterol 3 mg 3 ml INHALATION Q4H PRN #2 ml 08/01/19 History (2.5 mg base)/3 mL nebulization soln nitroglycerin 0.4 mg sublingual 0.4 mg SL Q5M PRN #25 tab 08/01/19 02/27/21 History tablet blood sugar diagnostic #10 ea 12/14/19 02/27/21 History syringe with needle 3 mL 25 x 5/8" #1 ea 12/14/19 02/27/21 History carvedilol 25 mg tablet 25 mg PO TID #270 tab 02/27/20 02/27/21 Rx umeclidinium 62.5 mcg-vilanterol 1 puffs INH DAILY #60 ea 03/13/20 02/27/21 Rx 25 mcg/actuation powdr for inhalation CPAP Machine #1 ea 03/27/20 02/27/21 Rx Novolin N NPH U-100 Insulin 100 180 unit SUBCUT .COMPLEX 90 Days 09/05/20 02/27/21 Rx unit/mL subcutaneous susp #170 ml NS losartan 100 mg tablet 100 mg PO DAILY #30 tab 09/09/20 02/27/21 Rx amlodipine 10 mg tablet 10 mg PO DAILY #90 tab 09/12/20 02/27/21 Rx methocarbamol 500 mg tablet 500 mg PO TID PRN #90 tab 09/24/20 02/27/21 Rx atorvastatin 80 mg tablet 80 mg PO DAILY #90 tab 09/26/20 02/27/21 Rx sodium bicarbonate 650 mg tablet 650 mg PO DAILY #60 tab 09/26/20 02/27/21 Rx ergocalciferol (vitamin D2) 1,250 50,000 unit PO .COMPLEX #3 cap 10/03/20 02/27/21 Rx mcg (50,000 unit) capsule isosorbide mononitrate 120 mg 120 mg PO DAILY #30 tab 12/12/20 02/27/21 Rx tablet,extended release 24 hr insulin aspart U-100 100 unit/mL 180 unit SUBCUT DAILY ml 12/30/20 02/27/21 History subcutaneous solution pregabalin 50 mg capsule 50 mg PO DAILY #30 cap 01/08/21 02/27/21 Rx meclizine 25 mg tablet 25 mg PO TID PRN #30 tab 02/05/21 02/27/21 Rx methylprednisolone 4 mg tablets in 4 mg PO .COMPLEX #21 ea 02/05/21 02/27/21 Rx a dose pack nortriptyline 50 mg capsule 50 mg PO HS #90 cap 02/05/21 02/27/21 Rx finasteride 5 mg PO DAILY 02/24/21 02/27/21 History omeprazole 20 mg PO DAILY 02/24/21 02/27/21 History B complex with C 20-folic acid 1 cap PO QAM #30 cap 02/26/21 02/27/21 Rx [Renal Caps] ticagrelor [Brilinta] 90 mg PO BID@0600,1800 #60 tab 02/26/21 02/27/21 Rx albuterol sulfate 2 puff INHALATION Q6H PRN 02/27/21 02/27/21 History aspirin [Aspirin Low Dose] 81 mg PO DAILY 02/27/21 02/27/21 History spironolactone 25 mg PO DAILY 02/27/21 02/27/21 History Patient History Medical History BPH (benign prostatic hyperplasia) CAD (coronary artery disease) Callus Chronic back pain Chronic low back pain Chronic obstructive pulmonary disease Diabetes mellitus with diabetic polyneuropathy Diabetes mellitus, type 2 Insulin 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 Hyperlipidemia Hypertension Lumbar radicular pain Myocardial Infarction 1994 DRAKE (obstructive sleep apnea) Osteoarthritis PVD (peripheral vascular disease) Sleep apnea CPAP SOB (shortness of breath) on exertion Spinal stenosis of lumbar region Surgical History H/O colonoscopy History of amputation Right Little Toe Hx of vascular surgery X 2-TOTAL STENT3 X 3-R LRG Hx of vascular surgery AVF L ARM-HAS NEVER HAD DIALYSIS Family History Other No family history of adverse response to anesthesia No family history of bleeding disorder No pertinent family history in first degree relatives Denies family history of Ovarian cancer Prostate cancer Coronary heart disease Myocardial infarction Breast cancer Colorectal cancer Social History Smoking Status: Never smoker Age Started Using Tobacco: 18; Age Quit Using Tobacco: 19; packs per day: 0.25; Years Smoked: 1; Cigarettes Per Day: 5; Number of Years Since Quit: 50; Second Hand Exposure: No; Hx Alcohol Use: No Hx Substance Use: No Preferred Language: Belarusian Communication Ability: Effective Hearing Ability: Use of Hearing Aid Center Receptionist Required: No Beliefs That Will Affect Care: None marital status: Current Living Situation: Spouse current occupational status: retired Feels Safe at Home: Yes Childhood Exposure to Second-Hand Smoke: No caffeine: Yes Dental Care, Regularly: Yes Physical Activity Frequency: Does not Exercise Seatbelt Use: always Sunscreen Use: No Assistive Devices: Hearing Aid - Right Review of Systems Review of Systems: All systems reviewed & are unremarkable except as noted in HPI & below Physical Exam Physical Exam: General: Uncomfortable with BiPAP in place, tachypneic HEENT: Sclerae anicteric Lungs: Crackles at bases bilaterally Cardiac: Irregular irregular Abdomen: Obese, soft, nontender Extremities: Warm, trace lower extremity edema. Right radial artery access site with no ecchymosis, hematoma. Distal pulse and sensation intact. Neuro: Nonfocal Psych: Alert orient x3, normal affect and mood Results & Data ([facility]) Vital Signs (Past 12 Hours) Vital Signs Temp Pulse Pulse Resp BP BP Pulse Ox 02/27/21 19:41 77 22 132/63 96 02/27/21 17:00 79 79 22 113/57 L 98 02/27/21 16:06 84 26 H 98 02/27/21 15:17 99.0 F 101 H 24 112/97 98 PG Care Time/CCT Total # of Minutes Spent Total Time Spent with Patient: Total time spent is greater than 50% in coordination of care (as documented) at patient's floor/unit and/or counseling patient: Coding Level of Care Code 72065 Initial Inpt Care Lvl 3 Diagnoses Coronary artery disease I25.10 Coronary Disease-Associated Artery/Lesion type: [place] artery [place] vs. transplanted heart: [place] heart Associated angina: without angina (1) Coronary artery disease Coronary Disease-Associated Artery/Lesion type: [place] artery [place] vs. transplanted heart: [place] heart Associated angina: without angina Qualified Code(s): I25.10 - Atherosclerotic heart disease of [place] coronary artery without angina pectoris
[2021-02-27] MEDS ORDERED: NITROGLYCERIN SL 0.4 MG/TAB TAB SL PRN (22:28)
[2021-02-27] MEDS ORDERED: METHOCARBAMOL 500 MG TABLET PO PRN (22:28)
[2021-02-27] MEDS ORDERED: ONDANSETRON INJ 2 MG/ML 2 ML VIAL IV PRN (22:28)
[2021-02-27] MEDS ORDERED: NON-FORMULARY MEDICATION (Methylprednisolone 4 mg tablets,dose pack) PO SCH (22:28)
[2021-02-27] MEDS ORDERED: MECLIZINE HCL 25 MG TAB PO PRN (22:28)
[2021-02-27] MEDS ORDERED: PHARMACY GLYCEMIC MGMT CONSULT PRN (23:48)
[2021-02-28] MEDS ORDERED: GLUCOSE 10 TABS/TUBE PO PRN (00:15)
[2021-02-28] MEDS ORDERED: GLUCAGON FOR INJ 1 MG VIAL IM PRN (00:15)
[2021-02-28] MEDS ORDERED: GLUCOSE 40% GEL 15 GM TUBE PO PRN (00:15)
[2021-02-28] MEDS ORDERED: INSULIN HUMAN NPH SC ONE (00:15)
[2021-02-28] MEDS ORDERED: CARBOHYDRATES FOR HYPOGLYCEMIA PO PRN (00:15)
[2021-02-28] MEDS ORDERED: DEXTROSE 50% 50 ML SYRINGE IV PRN (00:15)
[2021-02-28] MEDS ORDERED: INSULIN ASPART 100 UNITS/ML 3 ML PEN SC SCH (00:15)
[2021-02-28] MEDS ORDERED: INSULIN ASPART 100 UNITS/ML 3 ML PEN SC ONE (00:30)
[2021-02-28] MEDS: carvediloL 25 MG TAB PO SCH ×3 (00:39→15:17)
[2021-02-28 02:29] LABS: Basophils # (auto) 0.01 K/uL (0-0.2); Basophils % (auto) 0.1 %; Eosinophils # (auto) 0.04 K/uL (0-0.5); Eosinophils % (auto) 0.3 %; Hematocrit (blood only) 35.7 % (42-52); Hemoglobin 12.2 g/dL (14.0-18.0); Immature Granulocytes # (auto) 0.03 K/uL (0.00-0.02); Immature Granulocytes % (auto) 0.2 %; Lymphocytes # (auto) 1.07 K/uL (1.2-3.4); Lymphocytes % (auto) 8.3 %; Mean Corpuscular Hemoglobin 29.7 pg (25-34); Mean Corpuscular Hgb Conc 34.2 g/dL (32-36); Mean Corpuscular Volume 86.9 fL (80-100); Mean Platelet Volume 11.2 fL (7.4-10.4); Monocytes # (auto) 1.47 K/uL (0.11-0.59); Monocytes % (auto) 11.5 %; Neutrophils % (auto) 79.6 %; Platelet Count 115 K/uL (130-400); RDW Coefficient of Variation 16.3 % (11.5-14.5); RDW Standard Deviation 52.1 fL (36.4-46.3); Red Blood Count 4.11 M/uL (4.7-6.1); White Blood Count 12.82 K/uL (4.8-10.8)
[2021-02-28 02:38] LABS: Partial Thromboplastin Ratio 1.3; Partial Thromboplastin Time 33.4 Seconds (21.0-31.0)
[2021-02-28 02:59] LABS: BUN Creatinine Ratio 10.1 (10-20); Calcium 8.4 mg/dl (8.5-10.1); Creatinine Clr Calc Pharmacy 15.5 ml/min; Est GFR (African American) 8.4; Est GFR (Non-African American) 7.2; Magnesium 2.2 mg/dl (1.8-2.4); Potassium 5.2 mmol/L (3.5-5.1); Troponin I 31.6 ng/ml (0-0.045)
[2021-02-28] MEDS ORDERED: HEPARIN IV BOLUS 4,500 UNITS in SYRINGE 0 ML IV ONE (03:45)
[2021-02-28] MEDS: INSULIN ASPART 100 UNITS/ML 3 ML PEN SC SCH ×5 (04:04→20:11)
[2021-02-28] MEDS: TICAGRELOR 90 MG TAB PO SCH ×2 (06:21→18:18)
[2021-02-28] MEDS ORDERED: LOSARTAN POTASSIUM 50 MG TAB PO SCH (09:00)
[2021-02-28] MEDS ORDERED: amLODIPine BESYLATE 5 MG TAB PO SCH (09:00)
[2021-02-28] MEDS: INSULIN HUMAN NPH SC SCH (09:22)
[2021-02-28] MEDS: ASPIRIN 81 MG ECTAB PO SCH (09:25)
[2021-02-28] MEDS: ATORVASTATIN 40 MG TAB PO SCH (09:26)
[2021-02-28] MEDS: PANTOprazole 40 MG TAB PO SCH (09:26)
[2021-02-28] MEDS: SODIUM BICARBONATE 650 MG TAB PO SCH (09:26)
[2021-02-28] MEDS: ISOSORBIDE MONO EXTENDED REL 60 MG TABCR PO SCH (09:26)
[2021-02-28] MEDS: FINASTERIDE 5 MG TAB PO SCH (09:27)
[2021-02-28] MEDS: SPIRONOLACTONE 25 MG TAB PO SCH (09:27)
[2021-02-28] MEDS: NEPHROCAPS PO SCH (09:27)
[2021-02-28] MEDS: UMECLIDINIUM/VILANTEROL 62.5/25MCG 7 PUFFS/INHALER INH SCH (09:28)
[2021-02-28] MEDS: LIDOCAINE 5% 1 PATCH TD SCH (09:33)
[2021-02-28] MEDS ORDERED: SODIUM CHLORIDE 0.9% 1000ML 1,000 ML IV PRN (09:34)
[2021-02-28] MEDS: PREGABALIN 50 MG CAP PO SCH (09:35)
--- NOTE | 2021-02-28 10:10 | Pre Anesthesia Assessment ---
Date of Service February 28, 2021 Pre Sedation Assessment Vital Signs Temp Pulse Pulse Pulse Pulse Resp BP 02/28/21 07:51 98.1 F 80 20 02/28/21 07:12 118 H 02/28/21 04:13 99.5 F 84 20 02/28/21 02:30 88 20 02/28/21 00:25 97.9 F 101 H 02/27/21 23:40 118 H 91/62 L 02/27/21 23:20 112 H 102/76 02/27/21 23:00 102 H 150/76 H 02/27/21 22:44 65 134/71 02/27/21 22:41 97.7 F 88 22 02/27/21 22:20 81 116/76 02/27/21 22:00 76 97/71 L 02/27/21 21:42 84 02/27/21 21:32 97.7 F 88 02/27/21 19:41 77 22 02/27/21 17:00 79 79 22 02/27/21 16:06 84 26 H 02/27/21 15:17 99.0 F 101 H 24 112/97 BP Pulse Ox 02/28/21 07:51 117/80 93 02/28/21 07:12 02/28/21 04:13 109/71 95 02/28/21 02:30 90 02/28/21 00:25 97/70 L 02/27/21 23:40 02/27/21 23:20 02/27/21 23:00 02/27/21 22:44 02/27/21 22:41 102/61 93 02/27/21 22:20 02/27/21 22:00 02/27/21 21:42 02/27/21 21:32 02/27/21 19:41 132/63 96 02/27/21 17:00 113/57 L 98 02/27/21 16:06 98 02/27/21 15:17 98 Cardiovascular RRR, no murmur, no edema Respiratory normal respiratory effort, lungs clear to auscultation Pre-Sedation Airway Assessment Smoking Status: Never smoker Hx Sleep Apnea: Yes Hx Difficult Intubation: No Short, Thick Neck: No Thyromental Distance: > or= 3.5 Finger Breadths Oral Cavity: + WNL Mallampati Class: III ASA: ASA3 Procedure Planning Contraindications for Sedation: none Current Medications Reviewed: Yes Notes The planned sedation has been discussed with the patient. Informed Consent was obtained. I have identified the patient, determined the appropriateness of sedation and have assessed the patient immediately prior to the procedure. All medicine(s) and interventions are by my order.
[2021-02-28] MEDS ORDERED: MIDAZOLAM HCL 1 MG/ML 2ML VIAL ONE ×5 (10:14→13:54)
[2021-02-28] MEDS ORDERED: fentaNYL citrate 100 MCG/2 ML VIAL ONE ×2 (10:14→12:33)
[2021-02-28] MEDS ORDERED: niCARdipine HCL INJ 2.5 MG/ML 10 ML AMP ONE ×2 (10:15)
[2021-02-28] MEDS ORDERED: HEPARIN (PORCINE) 1000 UNIT/ML 10 ML (CATH LAB USE ONLY) ONE ×2 (10:15→11:59)
[2021-02-28] MEDS ORDERED: NITROGLYCERIN/D5W 100MCG/ML 20ML SYR ONE (10:16)
[2021-02-28] MEDS ORDERED: AMIODARONE 360MG / 200ML D5W IV ONE (10:20)
[2021-02-28] MEDS ORDERED: AMIODARONE 150MG / 100ML D5W IV ONE (10:20)
[2021-02-28] MEDS ORDERED: NOREPINEPHRINE BITARTRATE 1 MG/ML 4 ML VIAL IV ONE (10:47)
--- NOTE | 2021-02-28 10:58 | Nephrology Progress Note ---
Date of Service February 28, 2021 Assessment & Plan (1) ESRD (end stage renal disease): * Will provide HD today following cardiac cath and attempt 3L UF * Orders have been placed in the EMR and I have spoken w/ the HD RN to coordinated w/ laboratory sampler * PRP, CBC in am (2) NSTEMI (non-ST elevated myocardial infarction): * Currently CP free * On heparin gtt * Await cath results and Cardiology follow up recommendations Admission and Anticipated Discharge Date Admission Date: February 27, 2021 Subjective Mr. Albert was seen & examined in his hospital room this morning. He was dialyzed last evening for 2 hours w/ 2L UF. There were no complications. He remains mildly dyspneic and is scheduled for cardiac cath later this morning. Review of Systems Constitutional: no fever Eyes: no problem reported Ear, Nose, Mouth, Throat: no problem reported Respiratory: + dyspnea Cardiovascular: + edema; no chest pain Gastrointestinal: no abdominal pain and no nausea Musculoskeletal: no back pain Neurologic: no dizziness and no confusion Physical Exam Constitutional: not in distress Eyes: PERRL, conjunctivae normal, anicteric sclerae ENMT: external ear and nose normal, oropharynx normal Neck: trachea midline, no thyromegaly Respiratory: normal respiratory effort Auscultation: + rales Cardiovascular: Rate/Rhythm: regular rate and regular rhythm Gastrointestinal (Abdomen): normal bowel sounds, soft, nontender, no hepatosplenomegaly Musculoskeletal: Extremities: no cyanosis Neurologic: awake; not confused Results & Data ([facility]) Vital Signs (Past 12 Hours) Vital Signs Temp Pulse Pulse Pulse Resp BP BP 02/28/21 07:51 36.7 C 80 20 117/80 02/28/21 07:12 118 H 02/28/21 04:13 37.5 C 84 20 109/71 02/28/21 02:30 88 20 02/28/21 00:25 36.6 C 101 H 97/70 L 02/27/21 23:40 118 H 91/62 L 02/27/21 23:20 112 H 102/76 02/27/21 23:00 102 H 150/76 H Pulse Ox 02/28/21 07:51 93 02/28/21 07:12 02/28/21 04:13 95 02/28/21 02:30 90 02/28/21 00:25 02/27/21 23:40 02/27/21 23:20 02/27/21 23:00 Laboratory Tests 02/28/21 02/28/21 02:17 02:17 WBC 12.82 H Hgb 12.2 L Hct 35.7 L Plt Count 115 L Sodium 135 L Potassium 5.2 H Chloride 100 Carbon Dioxide 23 BUN 69 H Creatinine 6.90 H* D Troponin I 31.600 H* PG Care Time/CCT Total # of Minutes Spent Total Time Spent with Patient: Total time spent is greater than 50% in coordination of care (as documented) at patient's floor/unit and/or counseling patient: Coding Level of Care Code 02730 Subseq Hosp Care Lvl 3 Diagnoses ESRD (end stage renal disease) N18.6 NSTEMI (non-ST elevated myocardial infarction) I21.4
[2021-02-28] MEDS ORDERED: DEXTROSE 50% 50 ML SYRINGE IV ONE (12:13)
[2021-02-28] MEDS ORDERED: SODIUM BICARB 8.4% INJ 50 MEQ/50 ML SYR IV ONE (12:39)
--- NOTE | 2021-02-28 13:43 | Post Anesthesia Assessment ---
Date of Service February 28, 2021 Post Sedation Assessment Vital Signs Temp Pulse Pulse Pulse Pulse Resp BP 02/28/21 11:45 69 16 02/28/21 07:51 98.1 F 80 20 02/28/21 07:12 118 H 02/28/21 04:13 99.5 F 84 20 02/28/21 02:30 88 20 02/28/21 00:25 97.9 F 101 H 02/27/21 23:40 118 H 91/62 L 02/27/21 23:20 112 H 102/76 02/27/21 23:00 102 H 150/76 H 02/27/21 22:44 65 134/71 02/27/21 22:41 97.7 F 88 22 02/27/21 22:20 81 116/76 02/27/21 22:00 76 97/71 L 02/27/21 21:42 84 02/27/21 21:32 97.7 F 88 02/27/21 19:41 77 22 02/27/21 17:00 79 79 22 02/27/21 16:06 84 26 H 02/27/21 15:17 99.0 F 101 H 24 112/97 BP Pulse Ox 02/28/21 11:45 93 02/28/21 07:51 117/80 93 02/28/21 07:12 02/28/21 04:13 109/71 95 02/28/21 02:30 90 02/28/21 00:25 97/70 L 02/27/21 23:40 02/27/21 23:20 02/27/21 23:00 02/27/21 22:44 02/27/21 22:41 102/61 93 02/27/21 22:20 02/27/21 22:00 02/27/21 21:42 02/27/21 21:32 02/27/21 19:41 132/63 96 02/27/21 17:00 113/57 L 98 02/27/21 16:06 98 02/27/21 15:17 98 Recovery Score Activity: Moves 4 extremities Respiration: Dyspnea/Limited Breathing Circulation: +/-20-49% PreAnes Value Consciousness: Nonresponsive Oxygen Saturation: O2 needed for >90% Discharge Sedation Level of Care: Higher Level of Care Post Sedation Plan On clinical assessment, the patient appears to have tolerated the sedation without complications. Patient is recovering as anticipated. Patient will continue to be monitored by nursing and may be discharged when sedation discharge criteria are met per below protocol. Upon Completions of procedure up to 15 minutes continue every 5 minute vital signs and the P.A.R. score; then discharge to a Phase I or Fast Track to Phase II per the following guidelines: * Discharge Patient to appropriate Phase II area if PAR is 8 or greater or return to pre- procedure baseline. The post - procedure orders will be as directed. * If PAR score is less than 8 or not return to pre-procedure baseline then diana logan will follow Phase I monitoring till PAR is reached for Phase II. The Phase I may be done in procedure room or may call to secure a Phase I area. * If naloxone or flumazenil are used for reversal, hold in Phase I for continued monitoring from when last reversal dose was given for a minimum of 60 minutes or longer pending the nurse and/or physician discretion of patient condition before discharge to Phase II. Please call the Sedation Physician to re-evaluate and complete post-note for discharge to Phase II area. Do NOT discharge from procedure sedation or Phase 1 until post- sedation evaluation note is complete by procedure /sedation MD Sedation Discharge Instructions to be given to the patient at discharge to home.
--- NOTE | 2021-02-28 13:45 | Emergency Department Note ---
ED Visit Note Endotracheal Intubation Indication: respiratory distress. Called to mini lab operator for respiratory distress. The patient was on 100% oxygen via NRB prior to the procedure. Suction, airway equipment, RSI drugs, respiratory equipment, and appropriate personnel were prepared prior to the initiation of the procedure. A time out was taken. Induction was performed with etomidate 30 mg IVP and Rocuronium 100 mg IVP. After observing the clinical benefit of the medications, the airway was easily visualized utilizing a glidescope. A 7.0 size ETT tube was placed atraumatically to 24 cm using standard technique. The cuff inflated without signs of malfunction. There were bilateral breath sounds, positive colormetric change, no gastric sounds, a good capnography waveform. There were no complications. .
[2021-02-28 13:46] LABS: iSTAT Arterial Blood Gas HCO3 26 meg/L (19-24); iSTAT Arterial Blood Gas pCO2 53 mmHg (35-46); iSTAT Arterial Blood Gas pH 7.29 (7.35-7.45); iSTAT Arterial Blood Gas pO2 35 mmHg (80-95); iSTAT Carbon Dioxide 27 mmol/L (24-31); iSTAT Hematocrit 34 % (42-52); iSTAT Hemoglobin 11.6 g/dl (14.0-18.0); iSTAT Potassium 5.2 mmol/L (3.3-5.0); iSTAT Sodium 133 mmol/L (135-144)
--- NOTE | 2021-02-28 13:46 | Post Operative Brief Note ---
Cardiology Brief Post Op Date of Surgery February 28, 2021 Pre & Post Diagnosis Operation Date: 02/28/21 11:00 <No data on this case meets the specified criteria> Procedure -- Ceramic Tiler Thaddeus Muñoz MD Physics Department Chair Alondra Estimated Blood Loss 15 Findings See Below Patent LAD stents Moderate to severe distal LM/ostial LAD disease Subtotal mid RCA disease Cardiogenic shock Hypoxic respiratory failure PAT Intubation by Dr. Lopez for respiratory failure Successful PCI of LM into LAD with 2.5 x 18 Kamaljit Successful PCI of LM into circumflex with 3.0 x 12 Kamaljit Successful PCI of proximal to mid RCA with 2 JACOB (2.75 x 26, 2.5 x 30 Kamaljit) Fluids -- Specimens Specimen Description: -- Anesthesia Type RN Sedation Complications none Disposition Accompanied Patient To Recovery: No Disposition: Surgical ICU Overlapping Procedure I was present for: the critical portions of procedure. I was immediately available: during the entire case. Back up surgeon: was not required during procedure.
[2021-02-28 14:17] LABS: iSTAT Arterial Blood Gas HCO3 21 meg/L (19-24); iSTAT Arterial Blood Gas pCO2 46 mmHg (35-46); iSTAT Arterial Blood Gas pH 7.28 (7.35-7.45); iSTAT Arterial Blood Gas pO2 62 mmHg (80-95); iSTAT Carbon Dioxide 23 mmol/L (24-31); iSTAT Hematocrit 33 % (42-52); iSTAT Hemoglobin 11.2 g/dl (14.0-18.0); iSTAT Sodium 133 mmol/L (135-144)
[2021-02-28 14:17] LABS: iSTAT Arterial Blood Gas HCO3 24 meg/L (19-24); iSTAT Arterial Blood Gas pCO2 49 mmHg (35-46); iSTAT Arterial Blood Gas pO2 67 mmHg (80-95); iSTAT Carbon Dioxide 25 mmol/L (24-31); iSTAT Hematocrit 34 % (42-52); iSTAT Hemoglobin 11.6 g/dl (14.0-18.0); iSTAT Potassium 5.3 mmol/L (3.3-5.0); iSTAT Sodium 132 mmol/L (135-144)
[2021-02-28] MEDS ORDERED: MIDAZOLAM BOLUS FROM BAG IV PRN (14:24)
[2021-02-28] MEDS ORDERED: STAT IV Infusion **Titration per Protocol STA ×4 (14:24→22:11)
[2021-02-28] MEDS ORDERED: PROPOFOL BOLUS FROM BAG IV PRN (14:24)
[2021-02-28] MEDS ORDERED: PROPOFOL IV EMULSION 10 MG/ML 100 ML VIAL IV ONE (14:27)
[2021-02-28] MEDS ORDERED: MIDAZOLAM HCL 125 MG/250 ML BAG IV SCH (14:30)
--- NOTE | 2021-02-28 14:33 | Pharmacy Report ---
Pharmacy Glycemic Short Note 2 - Date of Service February 28, 2021 - Glycemic Short BSG Results (Last 24 hours): 02/27/21 02/27/21 02/27/21 15:58 19:56 21:33 Glucose 339 H* POC Glucose 400 H* 299 H 02/27/21 02/28/21 02/28/21 23:38 02:17 04:03 Glucose 280 H POC Glucose 246 H 254 H 02/28/21 02/28/21 07:22 12:40 Glucose POC Glucose 208 H 293 H OUTPATIENT ANTIDIABETIC REGIMEN: * Insulin NPH 40 units with breakfast, 120-180 units with dinner * Novolog TIDM - 35/15/45 units respectively, plus sliding scale * HbA1c 7.0% on 01/14/21 * However, this result is likely somewhat unreliable in ESRD patients d/t interactions between the A1c analyzing technique and high levels of urea in ESRD, reduced RBC life span, iron deficiency anemia, and EPO administration. HbA1c > 7.5% in ESRD patient may overestimate the extent of hyperglycemia in ESRD patients. ASSESSMENT: * 70 yo M with T1DM per diabetes visit note (although on very high doses of outpatient insulin suggesting significant insulin resistance as well), ESRD * s/p PCI 02/24, readmitted 02/27 with SOB, NSTEMI, cardiac cath today * Will resume similar regimen that patient was on earlier this week and titrate blood sugars to goal PLAN FOR INPATIENT GLYCEMIC CONTROL: * Basal insulin * NPH 50 units with breakfast 40 units with dinner * Bolus insulin * NovoLog per scale ACHS or Q6hrs while NPO * Goal Range: Low 110 mg/dL - High 140 mg/dL * Correction Factor: 12 mg/dL/unit * Nutritional / Prandial insulin per carb ratio of 1 unit per 2.5 grams CHO consumed
[2021-02-28] MEDS ORDERED: NOREPINEPHRINE/D5W 8 MG/508 ML IV ONE (14:37)
[2021-02-28] MEDS: propofoL 1,000 MG/100 ML VIAL IV SCH ×2 (14:52→19:55)
[2021-02-28] MEDS: fentaNYL DRIP 1,250 MCG/250 ML BAG IV SCH (14:53)
--- NOTE | 2021-02-28 15:02 | Cardiac Catheterization ---
[facility] Data: Electrical Engineering Intern Cardiac Status Clinical evaluation leading to the procedure CAD Presenation: Non STEMI Anginal Classification: CCS IV Heart Failure: NYHA Class: CCS III Cardiogenic Shock within 24 Hours: Yes Cardiac Arrest within 24 Hours: No Imaging Studies Past 6 Months: Yes Stress Studies Past 6 Months: No Diagnostic Physicians Name: Thaddeus Muñoz MD Status: Urgent Closure Device Percutaneous Entry Location: Radial Closure Device: Radial Band (Perclose) Recommendations: PCI without planned CABG PCI Indication: PCI for high risk Non-CLARENCE Lesion Segment Name: LM/ostial LAD Culprit Artery: Yes Stenosis Prior to Rx (%): 50 IVUS: Yes FFR: No Pre-Procedure RITCHIE Flow: 3 Previously Treated Lesion: No Lesion Complexity: High/C Lesion Length (mm): 15 Thrombus Present: No Bifurcation Lesion: Yes Guidewire Across Lesion: Stenosis Post-Procedure (%): 0 Post-Procedure RITCHIE Flow: 3 Devices(s) Deployed: Yes Yes Lesion #2 Segment Name: mid RCA Culprit Artery: Yes Stenosis Prior to Rx (%): 99 Chronic Total Occlusion: No IVUS: No FFR: No Pre-Procedure RITCHIE Flow: 1 Previously Treated Lesion: No Lesion Complexity: High/C Lesion Length (mm): 50 Thrombus Present: Yes Bifurcation Lesion: No Guidewire Across Lesion: Yes Stenosis Post-Procedure (%): 0 Post-Procedure RITCHIE Flow: 3 Devices(s) Deployed: Yes Intraprocedure Events Significant Disection: No Perforation: No Cardiac Cath Procedure Full Procedure Date February 28, 2021 Pre-Procedure Diagnosis Pre-Procedure Diagnosis: Non STEMI AUC Score AUC Score: 8 Post-Procedure Diagnosis Post-Procedure Diagnosis: Severe CAD, Successful PCI and Elevated Intracardiac Pressures Procedure(s) Performed Procedure(s) Performed: Coronary Angiography, Left Heart Cath, Right Heart Cath, Drug Eluting Stent, Ultrasound Guided Vascular Access, IVUS, Fractional Flow Drake and Femoral Artery Angiography [employer] Truck Driver Thaddeus Muñoz MD Gravity Meter Observer(s) Alondra Estimated Blood Loss Estimated Blood Loss: 25 Medication(s) Medication(s): Fentanyl, Heparin, Lidocaine 1%, Nicardipine, Nitroglycerin, Norepinephrine and Versed Summary of Findings Indication: High risk NSTEMI, new severe LV dysfunction Known multivessel coronary artery disease post recent PCI with 2 drug-eluting stents to LAD Access: 6Fr right radial artery, 7 Fr right common femoral vein, 7 Fr right common femoral artery, 4 Fr left common femoral artery Catheters: Bend, pigtail, EBU 3.5, 7 Fr EBU 3.5, JR4 guide Findings: LM -Short, calcified, 40 % distal LAD -medium caliber, heavily calcified, 50% ostial LAD, widely patent mid LAD stents with RITCHIE-3 flow to apex Circumflex -medium caliber, mildly calcified, 50% distal stenosis prior to left PLB. Small to medium caliber OM 2 with severe proximal disease and RITCHIE I flow. Medium OM 3 with mild diffuse disease RCA -dominant, medium caliber, severe diffuse proximal to mid disease up to 99% in the midsegment with RITCHIE I flow Procedure: Patient tachycardic with frequent paroxysmal atrial tachycardia up into the 130s. Started on amiodarone Access obtained in right radial artery with placement of 6 Fr sheath Initial angiography with Bend catheter During initial angiography hypotensive almost immediately, with difficulty obtaining manual blood pressures from the beginning of the procedure. Started on IV norepinephrine Noted to have patent mid LAD stent with RITCHIE-3 LAD flow. New finding was diminished flow in small OM2. Did have notable 50% ostial LAD disease which seem to extend back in the left main. Concern stenosis was more severe than appeared angiographically and decision made to further evaluate with IVUS. Left main cannulated with EBU 3.5 guide Flatwork Feeder 50 wire passed into distal LAD Olga IVUS catheter placed into mid LAD stents. Pullback revealed patent stents that were well expanded/well apposed. Appeared to have moderate to severe calcified disease at ostium which extended into distal left main. Patient increasingly agitated with worsening back pain, and dyspnea, O2 sats to high 80s. Situation thought to be unstable with respiratory distress, mildly increasing pressor requirement. Intubation thought necessary to safely complete procedure. Patient asked if wanted to proceed with intubation for procedure and voiced that he wished to proceed. Emergency room physician, Dr. Lopez contacted for intubation. In preparation/during intubation venous CFV access obtained. Right common femoral artery access obtained and 7 Lao sheath placed. Left TELEMARKETING SALES REPRESENTATIVE access obtained under ultrasound guidance and 4 Fr sheath placed for monitoring and in case of need of additional hemodynamic support. Left main then cannulated with 7 Fr EBU 3.5 guide. 6 Fr guide from radial artery removed Flatwork Feeder 50 wire placed into distal LAD. Second commercial airplane pilot 50 wire placed into distal circumflex Olga IVUS in the circumflex revealed no significant ostial disease. Again noted to have distal disease in left main and bifurcation Proximal LAD/distal left main dilated with 2.5 balloon Kissing stents placed from left main into LAD (2.5 x 18 Kamaljit), left main into circumflex (3.0 x 12 [place]). Kissing post dilation with 3.0 NC in LAD, 3.0 NC in circumflex. Repeat IVUS of LAD, circumflex revealed well apposed stent, well-expanded stents. Angiography revealed RITCHIE-3 flow in both left main, LAD and circumflex systems (RITCHIE I flow still in OM 2). RCA then cannulated with JR4 guide Flatwork Feeder 50 wire passed across mid RCA subtotal occlusion into distal vessel Mid RCA dilated with 2.5 balloon Mid RCA stented with 2.5 x 30 mm [place] drug-eluting stent Proximal RCA stented with 2.75 x 26 mm [place] drug-eluting stent overlapping distally with prior stent Stents postdilated with 3.0 NC. Post procedure good angiographic result with well-expanded stents and RITCHIE-3 flow through RCA. 7 Fr [place] navigated from right CFV into pulmonary artery RA 18, RV 60/24, PA 54/28 (38), PA sat 60% Arterial Closure: Perclose 7 Fr right TELEMARKETING SALES REPRESENTATIVE sheath. [place] catheter left in place. 4FR TELEMARKETING SALES REPRESENTATIVE sheath left in place. TR band to radial artery On transfer to ICU Norepinephrine 0.25 mcg/kg/minmaps in the low 60s Intubated, FiO2 100, PEEP of 10sats in low 90s Summary: 1. Severe multivessel coronary artery disease -Patent mid LAD stents Moderate to severe distal left main/ostial LAD disease on IVUS New Subtotally occluded small OM2 Chronic subtotal mid RCA occlusion 2. Cardiogenic shock 3. Acute hypoxic respiratory failure 4. Paroxysmal atrial tachycardia 5. Elevated left and right-sided filling pressures 6. Pulmonary hypertension 7. PCI of left main into LAD, left main into circumflex with kissing stents (2.5 x 18 mm [place] LAD; 3.0 x 12 mm [place] circumflex; both postdilated with 3.0 NC). 8. PCI of proximal to mid RCA with 2 overlapping drug-eluting stents (2.75 x 26, 2.5 x 30 mm Kamaljit; postdilated with 3.0 NC) Recommendations: To ICU for continued hemodynamic, respiratory support Titrate vasopressors to MAPs greater than 60 Inotropes to PA sats greater than 60 Continue DAPT with aspirin, ticagrelor Hemodialysis as hemodynamics allow Hemodynamics Rest Ao:: 90/59/61 Final Ao: 89/48/64 LV: 77/24 RA: 18 RV: 60/24 PA: 54/28/38 Recommendations Recommendations: PCI without planned CABG Specimens Specimens: None Radiation Exposure (mGy) 6574 Contrast (mls) 130 Drains Drains: none Anesthesia moderate 0715-5896 Procedural Complication(s) Cardiogenic shock, respiratory failure Disposition ICU I attest to the content of the Intraoperative Record and any orders documented therein. Any exceptions are noted below. [facility] [place] Card Cath Procedure Codes Cardiac Catheterization Procedure 1: Cardiovascular Cath Procedures: 67526 Coronaries & LHC (+/-LV) & RHC Therapeutic Services & Ancillary Proc Procedure 1: Cardiovascular Tx and Anc Procedures: 43885 IV Ultrasound (Coronary or Graft) Procedure 2: Cardiovascular Tx and Anc Procedures: 30558 IV Ultrasound Ea addl vessel Procedure 3: Cardiovascular Tx and Anc Procedures: 76906 Ultrasonic Guidance Vascular Access Moderate Sedation Procedure 1: Sedation/Anesthesia: 73031 Mod Sedation by the same physician;Init15 Min Child Age 5 & Up Procedure 2: Sedation/Anesthesia: 54603 Mod Sedation by the same physician; Ea [id number] Minutes Stenting Procedure 1: Cardiovascular Stent Procedures: 65881 Perc transcatheter placement of intracoronary stent(s), with ang Procedure 2: Cardiovascular Stent Procedures: 81879 Ea addl branch of a major coronary artery Procedure 3: Cardiovascular Stent Procedures: 24645 Ea addl branch of a major coronary artery PG Care Time/CCT Total # of Minutes Spent Total Time Spent with Patient: Total time spent is greater than 50% in coordination of care (as documented) at patient's floor/unit and/or counseling patient:
[2021-02-28] MEDS: NOREPINEPHRINE/D5W 8 MG/508 ML BAG IV SCH ×3 (15:18→18:37)
[2021-02-28 15:35] LABS: iSTAT Arterial Blood Gas HCO3 22 meg/L (19-24); iSTAT Arterial Blood Gas pCO2 42 mmHg (35-46); iSTAT Arterial Blood Gas pH 7.33 (7.35-7.45); iSTAT Arterial Blood Gas pO2 133 mmHg (80-95); iSTAT Carbon Dioxide 24 mmol/L (24-31); iSTAT Hematocrit 34 % (42-52); iSTAT Hemoglobin 11.6 g/dl (14.0-18.0); iSTAT Potassium 5.6 mmol/L (3.3-5.0); iSTAT Sodium 131 mmol/L (135-144)
--- NOTE | 2021-02-28 15:42 | XRay Report ---
XR chest 1V portable CLINICAL HISTORY: Intubated COMPARISON STUDY: Chest radiograph February 27, 2021. FINDINGS: Tip of the endotracheal tube is 5.8 cm above the juan. Tip of nasogastric tube projects o fabian the gastroesophageal junction. Interstitial thickening has increased. There is a trace left pleur al effusion. There is no pneumothorax. Cardiomegaly is unchanged. Mediastinal contours are stable. An additional catheter projects over the mediastinum, likely from a femoral approach. IMPRESSION: 1. Interstitial thickening suggestive of pulmonary edema. Trace left pleural effusion. 2. Tip of endotracheal tube 5.8 cm above the juan. 3. Tip of nasogastric tube projects over the gastroesophageal junction. ACT 112: Negative or not required by law. Electronically signed by: Ramon Case M.D. 02/28/2021 3:40 PM
[2021-02-28 16:11] LABS: Basophils # (auto) 0.02 K/uL (0-0.2); Basophils % (auto) 0.1 %; Eosinophils # (auto) 0.18 K/uL (0-0.5); Eosinophils % (auto) 1.2 %; Hematocrit (blood only) 34.6 % (42-52); Hemoglobin 11.5 g/dL (14.0-18.0); Immature Granulocytes # (auto) 0.07 K/uL (0.00-0.02); Immature Granulocytes % (auto) 0.5 %; Lymphocytes # (auto) 1.05 K/uL (1.2-3.4); Mean Corpuscular Hemoglobin 28.5 pg (25-34); Mean Corpuscular Hgb Conc 33.2 g/dL (32-36); Mean Corpuscular Volume 85.9 fL (80-100); Mean Platelet Volume 11.7 fL (7.4-10.4); Monocytes # (auto) 2.24 K/uL (0.11-0.59); Monocytes % (auto) 14.9 %; Neutrophils # (auto) 11.51 K/uL (1.4-6.5); Neutrophils % (auto) 76.3 %; Platelet Count 191 K/uL (130-400); RDW Coefficient of Variation 16.3 % (11.5-14.5); Red Blood Count 4.03 M/uL (4.7-6.1); White Blood Count 15.07 K/uL (4.8-10.8)
[2021-02-28 16:21] LABS: Partial Thromboplastin Ratio 4.6
[2021-02-28 16:23] LABS: Echinocytes 1+
--- NOTE | 2021-02-28 16:25 | Critical Care Consultation ---
Date of Consultation February 28, 2021 Assessment & Plan (1) Non-ST elevation (NSTEMI) myocardial infarction: (2) ESRD (end stage renal disease): (3) Acute hypoxemic respiratory failure: Impression: 71-year-old male with end-stage renal disease on dialysis, coronary disease, obesity and hypertension admitted with elevated troponin taken to the [facility] where he suffered respiratory arrest and had to be intubated. He is now hemodynamically unstable requiring vasopressor agents. Recommendations: 1. Neurologic: Continue sedation with fentanyl Versed and propofol. We will plan on keeping him sedated overnight to allow him to stabilize from a hemodynamic standpoint and then consider potentially weaning sedation and reassessing. 2. Cardiovascular: Status post PTCI. According to cardiology, coronary flow was established post catheterization. Will recheck echocardiogram given the p atient's hemodynamic instability. Other management per cardiology. Holding antihypertensives given need for norepinephrine. Wean as tolerated. Check cortisol. 3. Pulmonary: Hypoxemic respiratory failure: Improving the patient's FiO2 requirements. Once below 50% will work on weaning PEEP. 4. Renal: Discussed with nephrology. Given his hemodynamic instability, will hold on dialysis today as his acid-base status and volume status appear to be reasonable. Will reassess in the morning. Hold his antihypertensives for now. 5. ID: No current issues. The patient did vomit reportedly after the endotracheal tube was in place however there does not appear to be focal infiltrate. Hold antibiotics for now and continue to follow clinically. 6. Endocrine: Pharmacy consult for glycemic management. 7. Heme-onc: Continue to monitor hemoglobin and hematocrit. No indication for transfusion currently. 8. GI: Continue n.p.o. status in hopes of extubation within the next 12 to 24 hours. If not, may need to address enteral nutrition. 9. Subcu heparin for DVT prophylaxis. The patient is critically ill at this point time with significant probability of clinical deterioration. He is DNR/DNI which will need to be reinstituted at some point in time. A total of 50 minutes critical care time was spent evaluation management stabilization of this patient to this point. History of Present Illness Attending Physician: Berkley Simpson MD History of Present Illness Asked by the hospitalist and cardiology to assist in critical care management of this patient was intubated in the [facility]. History is obtained from discussion with cardiology and reviewed electronic medical record. The patient is a 71-year-old obese diabetic with a history of end-stage renal disease on dialysis. He was recently admitted with chest pain and underwent complex percutaneous interventions. He returned to the emergency room from dialysis with recurrent chest pain and had an elevated troponin. He was taken back to the Surveillance [facility] today as there was concern about potential in-stent restenosis versus new culprit lesion. While he was sedated in the Surveillance [facility] the patient dropped his blood pressure and eventually required intubation and initiation of vasopressor agents. Cardiology was able to open all arteries and achieved RITCHIE-3 flow at the conclusion of the procedure. He was brought back to the ICU intubated and on amiodarone and norepinephrine. Per nephrology notes, plan was to dialyze the patient today. Allergies Allergy/AdvReac Type Severity Reaction Status Date / Time No Known Drug Allergies Allergy Unknown Verified 02/27/21 17:26 Home Medications Medication Instructions Recorded Confirmed Type ipratropium 0.5 mg-albuterol 3 mg 3 ml INHALATION Q4H PRN #2 ml 08/01/19 02/27/21 History (2.5 mg base)/3 mL nebulization soln nitroglycerin 0.4 mg sublingual 0.4 mg SL Q5M PRN #25 tab 08/01/19 02/27/21 History tablet blood sugar diagnostic #10 ea 12/14/19 02/27/21 History syringe with needle 3 mL 25 x 5/8" #1 ea 12/14/19 02/27/21 History carvedilol 25 mg tablet 25 mg PO TID #270 tab 02/27/20 02/27/21 Rx umeclidinium 62.5 mcg-vilanterol 1 puffs INH DAILY #60 ea 03/13/20 02/27/21 Rx 25 mcg/actuation powdr for inhalation CPAP Machine #1 ea 03/27/20 02/27/21 Rx Novolin N NPH U-100 Insulin 100 180 unit SUBCUT .COMPLEX 90 Days 09/05/20 02/27/21 Rx unit/mL subcutaneous susp #170 ml NS losartan 100 mg tablet 100 mg PO DAILY #30 tab 09/09/20 02/27/21 Rx amlodipine 10 mg tablet 10 mg PO DAILY #90 tab 09/12/20 02/27/21 Rx methocarbamol 500 mg tablet 500 mg PO TID PRN #90 tab 09/24/20 02/27/21 Rx atorvastatin 80 mg tablet 80 mg PO DAILY #90 tab 09/26/20 02/27/21 Rx sodium bicarbonate 650 mg tablet 650 mg PO DAILY #60 tab 09/26/20 02/27/21 Rx ergocalciferol (vitamin D2) 1,250 50,000 unit PO .COMPLEX #3 cap 10/03/20 02/27/21 Rx mcg (50,000 unit) capsule isosorbide mononitrate 120 mg 120 mg PO DAILY #30 tab 12/12/20 02/27/21 Rx tablet,extended release 24 hr insulin aspart U-100 100 unit/mL 180 unit SUBCUT DAILY ml 12/30/20 02/27/21 History subcutaneous solution pregabalin 50 mg capsule 50 mg PO DAILY #30 cap 01/08/21 02/27/21 Rx meclizine 25 mg tablet 25 mg PO TID PRN #30 tab 02/05/21 02/27/21 Rx methylprednisolone 4 mg tablets in 4 mg PO .COMPLEX #21 ea 02/05/21 02/27/21 Rx a dose pack nortriptyline 50 mg capsule 50 mg PO HS #90 cap 02/05/21 02/27/21 Rx finasteride 5 mg PO DAILY 02/24/21 02/27/21 History omeprazole 20 mg PO DAILY 02/24/21 02/27/21 History B complex with C 20-folic acid 1 cap PO QAM #30 cap 02/26/21 02/27/21 Rx [Renal Caps] ticagrelor [Brilinta] 90 mg PO BID@0600,1800 #60 tab 02/26/21 02/27/21 Rx albuterol sulfate 2 puff INHALATION Q6H PRN 02/27/21 02/27/21 History aspirin [Aspirin Low Dose] 81 mg PO DAILY 02/27/21 02/27/21 History spironolactone 25 mg PO DAILY 02/27/21 02/27/21 History Patient History Medical History (Updated 02/28/21 @ 16:29 by Zack Nuñez MD) BPH (benign prostatic hyperplasia) CAD (coronary artery disease) Callus Chronic back pain Chronic low back pain Chronic obstructive pulmonary disease Diabetes mellitus with diabetic polyneuropathy Diabetes mellitus, type 2 Insulin dependent ESRD (end stage renal disease) 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 Hyperlipidemia Hypertension Lumbar radicular pain Myocardial Infarction 1994 DRAKE (obstructive sleep apnea) Osteoarthritis PVD (peripheral vascular disease) Sleep apnea CPAP SOB (shortness of breath) on exertion Spinal stenosis of lumbar region Surgical History (Updated 02/28/21 @ 10:34 by Andreas Mejias) H/O colonoscopy History of amputation Right Little Toe Hx of vascular surgery X 2-TOTAL STENT3 X 3-R LRG Hx of vascular surgery AVF L ARM Family History Other No family history of adverse response to anesthesia No family history of bleeding disorder No pertinent family history in first degree relatives Denies family history of Ovarian cancer Prostate cancer Coronary heart disease Myocardial infarction Breast cancer Colorectal cancer Social History Smoking Status: Never smoker Age Started Using Tobacco: 18; Age Quit Using Tobacco: 19; packs per day: 0.25; Years Smoked: 1; Cigarettes Per Day: 5; Number of Years Since Quit: 50; Second Hand Exposure: No; Hx Alcohol Use: No Hx Substance Use: No Preferred Language: Occitan Communication Ability: Effective Hearing Ability: Use of Hearing Aid Hander In Required: No Beliefs That Will Affect Care: None marital status: Current Living Situation: Spouse current occupational status: retired Feels Safe at Home: Yes Childhood Exposure to Second-Hand Smoke: No caffeine: Yes Dental Care, Regularly: Yes Physical Activity Frequency: Does not Exercise Seatbelt Use: always Sunscreen Use: No Assistive Devices: Cane, CPAP and Hearing Aid - Bilateral Review of Systems Review of Systems: Unobtainable due to endotracheal tube Physical Exam Constitutional: not in distress Intubated and sedated Eyes: PERRL, conjunctivae normal, anicteric sclerae ENMT: external ear and nose normal, oropharynx normal Neck: trachea midline, no thyromegaly Respiratory: normal respiratory effort Auscultation: + rales Cardiovascular: Rate/Rhythm: regular rate and regular rhythm Gastrointestinal (Abdomen): normal bowel sounds, soft, nontender, no hepatosplenomegaly Musculoskeletal: Extremities: no cyanosis Neurologic: awake; not confused Results & Data Results & Data ([facility]) Vital Signs (Past 12 Hours) Vital Signs Temp Pulse Pulse Resp BP Pulse Ox 02/28/21 14:42 62 22 92 02/28/21 11:45 69 16 93 02/28/21 07:51 36.7 C 80 20 117/80 93 02/28/21 07:12 118 H Laboratory Results 02/28/21 15:40 Blood gas showed a pH 7.33, PCO2 42, PO2 of 133. Diagnostic Findings Chest x-ray post intubation was reviewed. Endotracheal tube and pulmonary artery catheter are in reasonable position. The lungs demonstrate hazy diffuse opacities bilaterally. No pneumothorax. No significant pleural effusion. Coding Level of Care Code Critical Care 1st 30-74 mins Diagnoses Non-ST elevation (NSTEMI) myocardial infarction I21.4 ESRD (end stage renal disease) N18.6 Acute hypoxemic respiratory failure J96.01 Time Spent (min) 50
[2021-02-28 16:30] LABS: Partial Thromboplastin Time 121.3 Seconds (21.0-31.0)
[2021-02-28] MEDS ORDERED: INSULIN HUMAN NPH SC SCH (16:30)
[2021-02-28 16:34] LABS: Albumin Globulin Ratio 0.7 (0.9-2); Albumin Level 2.4 gm/dl (3.4-5.0); Bilirubin,Total 1.7 mg/dl (0.2-1); Calcium 7.7 mg/dl (8.5-10.1); Creatinine Clr Calc Pharmacy 13.6 ml/min; Est GFR (African American) 7.1; Est GFR (Non-African American) 6.2; Globulin 3.6 gm/dl (2.5-4.0); Potassium 5.9 mmol/L (3.5-5.1)
[2021-02-28 16:46] LABS: Beta-Hydroxybutyrate 2.09 mg/dl (0.2-2.81)
--- NOTE | 2021-02-28 18:15 | XCELERA ---
[id number]
[2021-02-28] MEDS ORDERED: Nursing to Pharmacy Communication SCH ×3 (19:30→22:30)
[2021-02-28] MEDS: HEPARIN SOD 5,000 UNIT/0.5 ML VIAL SQ SCH (20:12)
[2021-02-28] MEDS ORDERED: INSULIN HUMAN REGULAR PER UNIT 10 UNITS in SYRINGE 9.9 ML IV ONE (20:30)
[2021-02-28 20:38] LABS: Mixed Venous Blood Gas Base Excess -4.5 mEq/L (-7.7-1.9); Mixed Venous Blood Gas O2 Sat 68.7 % (68); Mixed Venous Blood Gas pH 7.31 (7.35-7.45)
[2021-02-28 21:07] LABS: BUN Creatinine Ratio 11.5 (10-20); Calcium 7.7 mg/dl (8.5-10.1); Creatinine Clr Calc Pharmacy 13.2 ml/min; Est GFR (African American) 6.9; Est GFR (Non-African American) 5.9; Potassium 5.6 mmol/L (3.5-5.1)
[2021-02-28 21:27] LABS: Beta-Hydroxybutyrate 1.13 mg/dl (0.2-2.81)
--- NOTE | 2021-02-28 21:33 | Hospitalist Progress Note ---
Date of Service February 28, 2021 Assessment & Plan (1) NSTEMI (non-ST elevated myocardial infarction): With recent mid LAD stent placed several days before readmission. Troponin 33 x2 upon admission Initially was treated with heparin drip and urgent dialysis for respiratory failure. Cardiology took for cardiac catheterization on 02/28-found to have severe multivessel disease, his previous mid LAD stents were patent; with moderate to severe distal left main/ostial LAD disease-stents placed in left main and LAD, left main and circumflex, as well as PCI of proximal to mid RCA with 2 overlapping drug-eluting stents. Also found to have new subtotally occluded small OM 2 Cardiac cath complicated by hypotension, cardiogenic shock, requiring vasopressors. Was intubated, sedated, and transferred to ICU post cath -Continue aspirin and Brilinta - Continue high dose atorvastatin 80mg -Hold carvedilol for hypotension -Hold home losartan 100mg Daily for hypotension Appreciate cardiology management Continued stay in ICU for hemodynamic and respiratory support, titrate vasopressors to MAP greater than 60, inotropes to PA sats greater than 60 (2) Hypotension: Secondary to cardiogenic shock Maintain maps greater than 60 On Levophed and about to add dobutamine when I saw him (3) Acute hypoxemic respiratory failure: Secondary to acute on chronic systolic CHF due to NSTEMI Support with dialysis when able to Intubated FiO2 50% (4) ESRD (end stage renal disease): Nephrology consulted-had urgent dialysis on the evening of admission Not able to tolerate dialysis now status post cath with cardiogenic shock and hypotension - Appreciate nephrology assistance - Continue renal caps - Continue Vitamin D - Support hemodynamics -Follow BMP (5) CHF (congestive heart failure): EF on echocardiogram this morning is 25-30% which is reduced from previous 30-35% on January 20 Secondary to ischemic cardiomyopathy With elevated left and right-sided pressures on left and right heart cath Dialysis if tolerated hemodynamically to remove volume (6) Coronary artery disease: As above (7) Hypertension: Holding home carvedilol 25 mg TID- Dose verified on recent discharge summary -Holding home Amlodpine -Holding home losartan 100mg Daily (8) Type 1 diabetes mellitus: Uncontrolled- with CAD, CKD, neuropathy, with hyperglycemia here in the 300s and was 400 on admission Was given IV insulin and is being managed with basal bolus insulin by pharmacy Consider insulin drip in the ICU setting (9) Chronic low back pain: - Lidocaine patch TD -Hold home methocarbamol Fentanyl as needed (10) Sleep apnea: DRAKE- BIPAP at home 04/08 -Currently intubated (11) Chronic obstructive pulmonary disease: Continue Umeclidium/Lanterol, Albuterol puffer prn, Combivent nebs prn Currently intubated (12) Abnormal ECG: ECG irregular with RBBB- atrial tachycardia (13) Acute hyperkalemia: Potassium 5.9 on repeat after cardiac cath Insulin given Repeat labs later Manage with dialysis as needed Consider Kayexalate (14) Obesity: BMI 44.6 (15) Paroxysmal supraventricular tachycardia: Previously on amiodarone drip during cardiac catheterization, currently in sinus rhythm Follow on telemetry (16) DVT prophylaxis: Was on heparin drip, now discontinued Heparin SQ given Disposition-patient with very guarded prognosis, is a DNR/DNI but agreed to intubation during cardiac catheterization With the permission of his , I discussed his care with his niece, Padmini Read, cell phone [phone]. Padmini is a nurse practitioner and is the designated medical assistant for the family. She will communicate our conversation to the patient's . I also discussed his care with the production broacher [employer] and hand shoes sewer at the bedside Admission and Anticipated Discharge Date Admission Date: February 27, 2021 Subjective Patient went for cardiac catheterization this morning and developed hypotension and respiratory arrest, required vasopressors during catheterization. He was started on Levophed. He had some atrial tachycardia which converted to sinus with amiodarone drip. He was transferred to the intensive care unit. He did receive 2 stents from left main to LAD and left main circumflex as well as 2 on the right. Right heart cath was performed and his PA sat was in the 60s. He was unable to tolerate having dialysis afterwards due to hypotension and need for high doses of Levophed. Potassium was 5.9 and was treated with insulin for hyperglycemia as well. Afterwards. When I saw him, he was sedated but spontaneously moved his legs during examination. Review of Systems Review of Systems: All systems reviewed & are unremarkable except as noted in HPI & below Physical Exam Constitutional: WD/WN, vitals as above + morbidly obese and + mechanically ventilated ENMT: ET tube in place Neck: trachea midline, no thyromegaly Respiratory: normal respiratory effort, lungs clear to auscultation Cardiovascular: Rate/Rhythm: regular rate and regular rhythm Heart Sounds: no murmur Extremities: + edema (1+ pitting edema lower extremities bilaterally) Chest (Breasts): Chest: normal inspection of chest Gastrointestinal (Abdomen): normal bowel sounds, soft, nontender, no hepatosplenomegaly Musculoskeletal: Extremities: no cyanosis and no clubbing Skin: no rashes, warm and dry Results & Data Results & Data ([facility]) Vital Signs (Past 12 Hours) Vital Signs Temp Pulse Resp BP Pulse Ox 02/28/21 19:50 77 22 95 02/28/21 18:30 37.5 C 64 171/69 H 96 02/28/21 18:00 37.4 C 65 158/69 H 96 02/28/21 17:30 37.3 C 66 95 02/28/21 17:00 37.2 C 71 96 02/28/21 16:16 37.1 C 73 162/78 H 96 02/28/21 16:00 37.1 C 64 161/72 H 98 02/28/21 15:45 77 137/107 H 95 02/28/21 15:30 65 95 02/28/21 15:01 62 87/49 L 100 02/28/21 15:00 62 100 02/28/21 14:50 61 97/64 L 100 02/28/21 14:45 60 99 02/28/21 14:42 62 22 92 02/28/21 14:39 62 58/50 L 93 02/28/21 14:30 65 93 02/28/21 11:45 69 16 93 Laboratory Results Laboratory values reviewed PG Care Time/CCT Total # of Minutes Spent Total Time Spent with Patient: Total time spent is greater than 50% in coordination of care (as documented) at patient's floor/unit and/or counseling patient: Coding Level of Care Code 38604 Subseq Hosp Care Lvl 3 Diagnoses NSTEMI (non-ST elevated myocardial infarction) I21.4 Hypotension I95.9 Acute hypoxemic respiratory failure J96.01 ESRD (end stage renal disease) N18.6 CHF (congestive heart failure) I50.9 Coronary artery disease I25.10 Associated angina: without angina Coronary Disease-Associated Artery/Lesion type: [place] artery [place] vs. transplanted heart: [place] heart Hypertension I10 Hypertension type: essential hypertension Type 1 diabetes mellitus E10.69 Diabetes mellitus complication status: with other specified complication Chronic low back pain M54.40; G89.29 Back pain laterality: unspecified Sciatica laterality: sciatica laterality unspecified Sciatica presence: with sciatica Sleep apnea G47.33 Sleep apnea type: obstructive Chronic obstructive pulmonary disease J44.9 COPD type: unspecified COPD Abnormal ECG R94.31 Acute hyperkalemia E87.5 Obesity E66.9 Obesity type: due to excess calories Serious obesity comorbidity presence: with serious comorbidity Paroxysmal supraventricular tachycardia I47.1 DVT prophylaxis Z29.9 (1) Sleep apnea Sleep apnea type: obstructive Qualified Code(s): G47.33 - Obstructive sleep apnea (adult) (pediatric) (2) Chronic low back pain Back pain laterality: unspecified Sciatica laterality: sciatica laterality unspecified Sciatica presence: with sciatica Qualified Code(s): M54.40 - Lumbago with sciatica, unspecified side; G89.29 - Other chronic pain (3) Type 1 diabetes mellitus Diabetes mellitus complication status: with other specified complication Qualified Code(s): E10.69 - Type 1 diabetes mellitus with other specified complication (4) Coronary artery disease Associated angina: without angina Coronary Disease-Associated Artery/Lesion type: [place] artery [place] vs. transplanted heart: [place] heart Qualified Code(s): I25.10 - Atherosclerotic heart disease of [place] coronary artery without angina pectoris (5) Chronic obstructive pulmonary disease COPD type: unspecified COPD Qualified Code(s): J44.9 - Chronic obstructive pulmonary disease, unspecified (6) Hypertension Hypertension type: essential hypertension Qualified Code(s): I10 - Essential (primary) hypertension (7) Obesity Obesity type: due to excess calories Serious obesity comorbidity presence: with serious comorbidity
[2021-02-28] MEDS ORDERED: AMIODARONE / D5W 360 MG/200 ML BAG IV ONE (21:47)
[2021-02-28] MEDS ORDERED: 0.2 MICRON FILTER SET 1 EA IV ONE (21:47)
[2021-02-28] MEDS: MAX Conc 128mcg/mL; 32mg in 250mL IV SCH (21:51)
[2021-02-28] MEDS ORDERED: ALBUMIN 5% 250 ML IV ONE (22:16)
[2021-02-28] MEDS: VASOPRESSIN 20 UNITS in 0.9 % SODIUM CHLORIDE 100 ML IV SCH (22:28)
--- NOTE | 2021-02-28 22:37 | Communication Note ---
Date of Service: February 28, 2021 Patient had an episode of worsening hypotension/shock and has required increased dose of vasopressors. Vasopressin added to levo and dobutamine drips and r eceived albumin bolus. Repeat BMP was without significant change/worsening of electrolyte abnormalities and his pH on mixed venous was 7.31 and SVO2 68%. He continues to be sinus rhythm on the monitor without any dysrhythmias. Repeat EKG unchanged from prior study. No obvious signs of bleeding and hemoglobin remains stable. I spoke with the patient's , Lisa, and she has been updated on his current condition. Patient has previously been made DNR/DNI. At this time, we are allowing patient's to come to the bedside as his prognosis remains poor. Dr. Muñoz also notified of patient's worsening clinical status and did present to the bedside. Was able to have goals of care discussion with patient's . Patient's course is complicated by ESRD, which she is currently unable to tolerate hemodialysis and would potentially need CRRT. His , Lisa, does not feel that he would want transfer to tertiary center or further aggressive measures. Plan is to continue with current management as he is currently sedated and comfortable on the ventilator, and will reevaluate his condition in the morning. If he were to continue to decompensate overnight, will likely transition to comfort care. CRITICAL CARE TIME - I have personally spent 40 minutes of critical care time in the direct management of this patient. This is a life/limb threatening event. This includes time spent evaluating patient, direct bedside care, chart review, placing orders, interpretation of diagnostic studies, discussion with consultants, patient, and family members, as well as other required patient management activities. This time is exclusive of all separately billable procedures, and teaching time and separate from and in addition to any other critical care service time. Coding Level of Care Code Critical Care ea addt'l 30 min
[2021-02-28 22:53] LABS: Hematocrit (blood only) 31.6 % (42-52); Hemoglobin 10.6 g/dL (14.0-18.0); Mean Corpuscular Volume 86.6 fL (80-100); Mean Platelet Volume 11.5 fL (7.4-10.4); Platelet Count 154 K/uL (130-400); RDW Coefficient of Variation 16.3 % (11.5-14.5); RDW Standard Deviation 52.3 fL (36.4-46.3); Red Blood Count 3.65 M/uL (4.7-6.1); White Blood Count 10.38 K/uL (4.8-10.8)
[2021-02-28 22:54] LABS: Mean Corpuscular Hgb Conc 33.5 g/dL (32-36)
[2021-02-28 23:48] LABS: Fibrinogen 474 mg/dl (184-400); Partial Thromboplastin Ratio 1.1; Partial Thromboplastin Time 29.1 Seconds (21.0-31.0); Prothrombin Time 10.6 Seconds (9.0-12.0)
[2021-03-01] MEDS ORDERED: cefTRIAXone SODIUM 2,000 MG in DEXTROSE 5% 50 ML IV STA (00:07)
--- NOTE | 2021-03-01 00:25 | Cardiology Progress Note ---
Date of Service March 01, 2021 Assessment & Plan (1) Coronary artery disease: Post to left main into LAD, circumflex. Prior PCI with 2 JACOB to proximal to mid LAD PCI to RCA 2. Cardiogenic shock 3. Ischemic cardiomyopathy 4. End-stage renal disease 5. Hypoxic respiratory failure 6. Frequent atrial ectopy/PAT 7. Type 1 DM Patient post complete revascularization with RITCHIE-3 flow throughout coronary system. Course complicated by cardiogenic shock requiring escalating vasopressors. Discussion had with family regarding goals of care. They are clear about his prior wishes to not be kept alive for extended period of time on vasopressors/ventilator support. Also would not want patient transferred to a tertiary center for consideration of CVVHD Plan for continued care with current vasopressors, inotropes overnight. Possible change in goals of care in a.m. if no improvement. Admission and Anticipated Discharge Date Admission Date: February 27, 2021 Subjective Initially seen this morning patient endorsed minimal chest pain overnight but none at time of interview. Reported mild shortness of breath after dialysis yesterday. Echocardiogram reviewed and noted to have new severe LV dysfunction from January 2021 In the setting of troponin to 30s, new echo findings and heart failure, mild chest discomfort decision made to bring back to Service Aide to evaluate LAD stents Patient hypotensive at beginning of procedure with eventual respiratory distress. Required vasopressors for cardiogenic shock and intubation for respiratory distress. Underwent complex PCI of left main into LAD, circumflex as well as with RCA. Transferred to ICU Patient requiring gradually escalating pressors in the afternoon/evening. Repeat PA sat 40. Started on dobutamine. Called by door to door selling distributor HELEN montano as was noted to have a significant drop in blood pressures. Norepinephrine increased and vasopressin added. Review of Systems Review of Systems: Unobtainable due to endotracheal tube Physical Exam Constitutional: + overweight Eyes: no scleral abnormality Respiratory: Auscultation: + rales (Few); no wheezes Intubated Cardiovascular: Rate/Rhythm: regular rate Heart Sounds: no murmur Gastrointestinal (Abdomen): Inspection/Auscultation: abdomen not distended Percussion/Palpation: abdomen soft Skin: no rashes and no jaundice Neurologic: Sedated Results & Data ([facility]) Vital Signs (Past 12 Hours) Vital Signs Temp Pulse Resp BP Pulse Ox 02/28/21 22:22 100.8 F H 65 87/41 L 95 02/28/21 22:07 100.6 F H 66 71/37 L 95 02/28/21 22:03 100.6 F H 66 102/38 L 95 02/28/21 21:52 100.6 F H 69 115/50 L 94 02/28/21 21:51 100.6 F H 70 143/51 H 95 02/28/21 21:30 100.6 F H 71 94 02/28/21 21:15 100.4 F H 72 94 02/28/21 21:00 100.4 F H 70 141/54 H 95 02/28/21 20:45 100.4 F H 69 95 02/28/21 20:30 100.4 F H 69 94 02/28/21 20:15 100.4 F H 68 95 02/28/21 20:00 100.2 F H 68 94 02/28/21 19:50 77 22 95 02/28/21 19:45 100.0 F H 66 121/109 H 95 02/28/21 19:30 99.9 F H 89 94 02/28/21 19:15 99.9 F H 67 160/65 H 96 02/28/21 19:00 99.7 F H 67 159/56 H 96 02/28/21 18:30 99.5 F 64 171/69 H 96 02/28/21 18:00 99.3 F 65 158/69 H 96 02/28/21 17:30 99.1 F 66 95 02/28/21 17:00 99.0 F 71 96 02/28/21 16:16 98.8 F 73 162/78 H 96 02/28/21 16:00 98.8 F 64 161/72 H 98 02/28/21 15:45 77 137/107 H 95 02/28/21 15:30 65 95 02/28/21 15:01 62 87/49 L 100 02/28/21 15:00 62 100 02/28/21 14:50 61 97/64 L 100 02/28/21 14:45 60 99 02/28/21 14:42 62 22 92 02/28/21 14:39 62 58/50 L 93 02/28/21 14:30 65 93 PG Care Time/CCT Total # of Minutes Spent Total Time Spent with Patient: Total time spent is greater than 50% in coordination of care (as documented) at patient's floor/unit and/or counseling patient: Coding Level of Care Code 40973 Subseq Hosp Care Lvl 3 Diagnoses Coronary artery disease I25.10 Coronary Disease-Associated Artery/Lesion type: [place] artery [place] vs. transplanted heart: [place] heart Associated angina: without angina (1) Coronary artery disease Coronary Disease-Associated Artery/Lesion type: [place] artery [place] vs. transplanted heart: [place] heart Associated angina: without angina Qualified Code(s): I25.10 - Atherosclerotic heart disease of [place] coronary artery without angina pectoris
[2021-03-01] MEDS: propofoL 1,000 MG/100 ML VIAL IV SCH ×6 (00:26→20:08)
[2021-03-01] MEDS: INSULIN ASPART 100 UNITS/ML 3 ML PEN SC SCH ×4 (00:28→18:04)
[2021-03-01] MEDS: ACETAMINOPHEN 1,000 MG/100 ML VIAL IV PRN ×2 (00:29→10:31)
[2021-03-01] MEDS: fentaNYL DRIP 1,250 MCG/250 ML BAG IV SCH ×5 (01:46→21:38)
[2021-03-01] MEDS ORDERED: INSULIN ASPART 100 UNITS/ML 3 ML PEN SC SCH (02:00)
[2021-03-01 03:22] LABS: iSTAT Arterial Blood Gas HCO3 21 meg/L (19-24); iSTAT Arterial Blood Gas pCO2 36 mmHg (35-46); iSTAT Arterial Blood Gas pH 7.38 (7.35-7.45); iSTAT Arterial Blood Gas pO2 67 mmHg (80-95); iSTAT Carbon Dioxide 22 mmol/L (24-31); iSTAT Hematocrit 33 % (42-52); iSTAT Hemoglobin 11.2 g/dl (14.0-18.0); iSTAT Potassium 4.8 mmol/L (3.3-5.0); iSTAT Sodium 130 mmol/L (135-144)
[2021-03-01] MEDS ORDERED: AMIODARONE / D5W 360 MG/200 ML BAG IV SCH (03:47)
[2021-03-01 04:49] LABS: Basophils # (auto) 0.01 K/uL (0-0.2); Basophils % (auto) 0.1 %; Eosinophils # (auto) 0.25 K/uL (0-0.5); Eosinophils % (auto) 2.7 %; Hematocrit (blood only) 33.2 % (42-52); Hemoglobin 10.9 g/dL (14.0-18.0); Immature Granulocytes # (auto) 0.02 K/uL (0.00-0.02); Immature Granulocytes % (auto) 0.2 %; Lymphocytes # (auto) 1.17 K/uL (1.2-3.4); Lymphocytes % (auto) 12.7 %; Mean Corpuscular Hemoglobin 28.5 pg (25-34); Mean Corpuscular Hgb Conc 32.8 g/dL (32-36); Mean Corpuscular Volume 86.9 fL (80-100); Mean Platelet Volume 10.4 fL (7.4-10.4); Monocytes % (auto) 15.2 %; Neutrophils # (auto) 6.36 K/uL (1.4-6.5); Neutrophils % (auto) 69.1 %; Platelet Count 133 K/uL (130-400); RDW Coefficient of Variation 16.1 % (11.5-14.5); RDW Standard Deviation 51.5 fL (36.4-46.3); Red Blood Count 3.82 M/uL (4.7-6.1); White Blood Count 9.21 K/uL (4.8-10.8)
[2021-03-01 04:56] LABS: Mixed Venous Blood Gas Base Excess -3.7 mEq/L (-7.7-1.9); Mixed Venous Blood Gas O2 Sat 68.8 % (68); Mixed Venous Blood Gas pH 7.33 (7.35-7.45)
[2021-03-01 05:07] LABS: Partial Thromboplastin Time 26.5 Seconds (21.0-31.0)
[2021-03-01 05:21] LABS: BUN Creatinine Ratio 11.1 (10-20); Calcium 7.8 mg/dl (8.5-10.1); Creatinine Clr Calc Pharmacy 12.5 ml/min; Est GFR (African American) 6.6; Est GFR (Non-African American) 5.7; Magnesium 2.3 mg/dl (1.8-2.4); Potassium 4.9 mmol/L (3.5-5.1)
[2021-03-01] MEDS: VASOPRESSIN 20 UNITS in 0.9 % SODIUM CHLORIDE 100 ML IV SCH ×2 (05:42→19:16)
[2021-03-01] MEDS: TICAGRELOR 90 MG TAB PO SCH ×2 (05:43→18:04)
[2021-03-01 05:47] LABS: Phosphorus 8.9 mg/dl (2.5-4.9)
[2021-03-01] MEDS ORDERED: Nursing to Pharmacy Communication SCH (06:15)
--- NOTE | 2021-03-01 07:19 | Electrocardiogram Report ---
Test Reason : Blood Pressure : / mmHG Vent. Rate : 076 BPM Atrial Rate : 076 BPM P-R Int : 162 ms QRS Dur : 160 ms QT Int : 420 ms P-R-T Axes : 013 156 -15 degrees QTc Int : 472 ms Normal sinus rhythm Right bundle branch block Septal infarct (cited on or before 12-JAN-2019) Abnormal ECG When compared with ECG of 27-FEB-2021 15:38, Premature atrial complexes are no longer Present Vent. rate has decreased BY 53 BPM Questionable change in initial forces of Septal leads Confirmed by Jesus Martinez ([id number]) on 03/01/2021 7:19:00 AM Referred By: REFERRED SELF Confirmed By:Jesus Martinez
[2021-03-01 07:55] LABS: Mixed Venous Blood Gas Base Excess -4.2 mEq/L (-7.7-1.9); Mixed Venous Blood Gas O2 Sat 67.4 % (68); Mixed Venous Blood Gas pH 7.33 (7.35-7.45)
[2021-03-01] MEDS ORDERED: INSULIN HUMAN NPH SC SCH (08:00)
--- NOTE | 2021-03-01 08:16 | XRay Report ---
XR chest 1V portable CLINICAL HISTORY: Respiratory failure. COMPARISON STUDY: Chest radiograph February 28, 2021 at 3:16 PM. FINDINGS: Tip of endotracheal tube is 4.9 cm above the juan. A catheter projects over the mediastin um likely via a femoral approach. Tip of nasogastric tube projects over the gastric cardia. There is no pneumothorax. Bilateral pleural effusions are present with bibasilar opacities. Interstitial thick ening consistent with pulmonary edema persists. IMPRESSION: 1. Tip of endotracheal tube 4.9 cm above the juan. 2. Bilateral pleural effusions with bibasilar opacities. 3. Persistent pulmonary edema. ACT 112: Negative or not required by law. Electronically signed by: Ramon Case M.D. 03/01/2021 8:15 AM
[2021-03-01] MEDS: FINASTERIDE 5 MG TAB PO SCH (08:29)
[2021-03-01] MEDS: LIDOCAINE 5% 1 PATCH TD SCH (08:29)
[2021-03-01] MEDS: ISOSORBIDE MONO EXTENDED REL 60 MG TABCR PO SCH (08:29)
[2021-03-01] MEDS: PANTOprazole 40 MG TAB PO SCH (08:29)
[2021-03-01] MEDS: ASPIRIN 81 MG ECTAB PO SCH (08:32)
[2021-03-01] MEDS: ATORVASTATIN 40 MG TAB PO SCH (08:35)
[2021-03-01] MEDS: SODIUM BICARBONATE 650 MG TAB PO SCH (08:35)
[2021-03-01] MEDS ORDERED: SODIUM CHLORIDE 0.9% INJ 10 ML VIAL IV ONE (08:43)
[2021-03-01] MEDS ORDERED: VECURONIUM BROMIDE 10 MG VIAL IV ONE (08:43)
[2021-03-01] MEDS ORDERED: SUCCINYLCHOLINE CHLORIDE 20 MG/ML 10 ML VIAL IV ONE (08:43)
[2021-03-01] MEDS ORDERED: ETOMIDATE 2 MG/ML 20 ML VIAL IV ONE (08:43)
[2021-03-01] MEDS ORDERED: ROCURONIUM BROMIDE 10 MG/ML 5 ML VIAL IV ONE (08:43)
[2021-03-01] MEDS: UMECLIDINIUM/VILANTEROL 62.5/25MCG 7 PUFFS/INHALER INH SCH (09:25)
[2021-03-01] MEDS: SPIRONOLACTONE 25 MG TAB PO SCH (09:25)
[2021-03-01] MEDS: NEPHROCAPS PO SCH (09:25)
[2021-03-01] MEDS: INSULIN HUMAN NPH SC SCH (09:28)
--- NOTE | 2021-03-01 09:33 | Cardiology Progress Note ---
Date of Service March 01, 2021 Assessment & Plan (1) Coronary artery disease: Post PCI to left main into LAD, circumflex. Prior PCI with 2 JACOB to proximal to mid LAD PCI to RCA 2. Cardiogenic shock 3. Ischemic cardiomyopathy 4. End-stage renal disease 5. Hypoxic respiratory failure 6. Frequent atrial ectopy/PAT 7. Type 1 DM Patient post complete revascularization with RITCHIE-3 flow throughout coronary system yesterday. Modest improvement in LV function on echo today but dysfunction still severe Preserved calculated cardiac output, unresponsive to increased inotropes Increased pulmonary edema on chest x-ray. Oxygenation stable Stable electrolytes, acid-base status Discussion with family again regarding impending need for renal replacement therapy. They plan to discuss further whether they wish patient to be transferred to tertiary center for CRRT or take more palliative approach. For now wean vasopressors and inotropes as able. Appreciate hospital medicine, nephrology and ICU team care. Admission and Anticipated Discharge Date Admission Date: February 27, 2021 Subjective Minimal change this morning. Remains intubated/sedated, oxygenation unchanged. Remains on Levophed, dobutamine and vasopressin, MAP stable. Minimal urine output. Electrically stable on telemetry Review of Systems Review of Systems: All systems reviewed & are unremarkable except as noted in HPI & below Physical Exam Constitutional: + overweight Eyes: + anicteric sclerae Respiratory: no respiratory distress Auscultation: lungs clear to auscultation bilaterally Cardiovascular: Rate/Rhythm: regular rate and regular rhythm Skin: no rashes, warm and dry Psychiatric: Intubated/sedated Results & Data ([facility]) Vital Signs (Past 12 Hours) Vital Signs Temp Pulse Resp BP Pulse Ox 03/01/21 08:33 73 18 93 03/01/21 05:41 100.9 F H 69 118/46 L 93 03/01/21 05:26 100.9 F H 70 128/49 L 95 03/01/21 05:11 100.9 F H 71 142/48 H 95 03/01/21 04:56 100.8 F H 70 125/49 L 92 03/01/21 04:41 100.9 F H 67 152/105 H 03/01/21 04:26 100.9 F H 70 144/48 H 94 03/01/21 04:11 100.8 F H 70 136/51 L 94 03/01/21 03:56 100.9 F H 69 118/47 L 94 03/01/21 03:41 100.9 F H 69 140/47 L 94 03/01/21 03:26 100.9 F H 69 122/43 L 94 03/01/21 03:11 101.1 F H 71 147/47 H 94 03/01/21 02:56 101.1 F H 71 131/48 L 94 03/01/21 02:50 71 20 94 03/01/21 02:41 101.1 F H 71 135/49 L 94 03/01/21 02:26 101.1 F H 72 136/50 L 94 03/01/21 02:11 101.3 F H 72 133/48 L 94 03/01/21 01:37 101.3 F H 74 139/53 L 94 03/01/21 01:22 101.5 F H 74 155/54 H 94 03/01/21 01:07 101.5 F H 74 134/65 93 03/01/21 00:52 101.3 F H 71 139/52 L 93 03/01/21 00:38 101.3 F H 73 141/53 H 93 03/01/21 00:22 101.3 F H 70 112/46 L 94 03/01/21 00:09 74 20 93 03/01/21 00:07 101.3 F H 74 145/56 H 93 03/01/21 00:00 68 02/28/21 23:52 101.1 F H 76 155/52 H 93 02/28/21 23:37 101.1 F H 75 168/54 H 92 02/28/21 23:23 100.9 F H 74 172/67 H 92 02/28/21 23:07 100.9 F H 70 139/57 L 92 02/28/21 22:52 100.8 F H 68 145/55 H 94 02/28/21 22:37 100.8 F H 65 121/48 L 95 02/28/21 22:22 100.8 F H 65 87/41 L 95 02/28/21 22:07 100.6 F H 66 71/37 L 95 02/28/21 22:03 100.6 F H 66 102/38 L 95 02/28/21 21:52 100.6 F H 69 115/50 L 94 02/28/21 21:51 100.6 F H 70 143/51 H 95 02/28/21 21:30 100.6 F H 71 94 PG Care Time/CCT Total # of Minutes Spent Total Time Spent with Patient: Total time spent is greater than 50% in coordination of care (as documented) at patient's floor/unit and/or counseling patient: Coding Level of Care Code 01393 Subseq Hosp Care Lvl 3 Diagnoses Coronary artery disease I25.10 Coronary Disease-Associated Artery/Lesion type: [place] artery [place] vs. transplanted heart: [place] heart Associated angina: without angina (1) Coronary artery disease Coronary Disease-Associated Artery/Lesion type: [place] artery [place] vs. transplanted heart: [place] heart Associated angina: without angina Qualified Code(s): I25.10 - Atherosclerotic heart disease of [place] coronary artery without angina pectoris
--- NOTE | 2021-03-01 10:28 | Electrocardiogram Report ---
Test Reason : Blood Pressure : / mmHG Vent. Rate : 065 BPM Atrial Rate : 065 BPM P-R Int : 178 ms QRS Dur : 154 ms QT Int : 492 ms P-R-T Axes : 035 148 -38 degrees QTc Int : 511 ms Normal sinus rhythm Right bundle branch block Septal infarct (cited on or before 12-JAN-2019) ST and T wave abnormality, consider inferior ischemia Prolonged QTc Abnormal ECG When compared with ECG of 28-FEB-2021 05:50, (unconfirmed) T wave inversion less evident in Anterior leads Confirmed by Andrew Huang ([id number] on 03/01/2021 10:27:44 AM Referred By: REFERRED SELF Confirmed By:Andrew Huang
[2021-03-01] MEDS: PREGABALIN 50 MG CAP PO SCH (10:32)
[2021-03-01] MEDS: HEPARIN SOD 5,000 UNIT/0.5 ML VIAL SQ SCH (10:32)
--- NOTE | 2021-03-01 12:10 | Nephrology Progress Note ---
Date of Service March 01, 2021 Assessment & Plan (1) ESRD (end stage renal disease): As family decided on comfort measures only considering his critical condition with extremely guarded prognosis, will sign off. Admission and Anticipated Discharge Date Admission Date: February 27, 2021 Subjective I have seen Mr. Olmos this morning with his and [id number] at [facility]. He has been on 3 pressor and blood pressure still low. Family just now made the decision to change his care to comfort measures only. They are waiting for his Niece to come from [place] who is a palliative care nurse. Review of Systems Review of Systems: Unobtainable due to endotracheal tube Results & Data ([facility]) Vital Signs (Past 12 Hours) Vital Signs Temp Pulse Resp BP Pulse Ox 03/01/21 11:08 70 17 92 03/01/21 10:00 38.3 C H 89 93 03/01/21 09:56 38.3 C H 73 128/47 L 93 03/01/21 09:45 38.3 C H 82 93 03/01/21 09:41 38.3 C H 73 122/46 L 03/01/21 09:30 38.3 C H 73 93 03/01/21 09:26 38.2 C H 72 120/44 L 93 03/01/21 09:15 38.2 C H 73 93 03/01/21 09:11 38.2 C H 74 123/47 L 93 03/01/21 09:04 38.2 C H 74 119/45 L 93 03/01/21 09:00 38.2 C H 73 92 03/01/21 08:56 38.2 C H 73 93 03/01/21 08:45 38.2 C H 73 94 03/01/21 08:41 38.2 C H 73 114/43 L 93 03/01/21 08:33 73 18 93 03/01/21 08:30 38.2 C H 73 93 03/01/21 08:26 38.2 C H 74 102/56 L 92 03/01/21 08:15 38.2 C H 73 92 03/01/21 08:11 38.2 C H 73 107/52 L 92 03/01/21 08:00 38.2 C H 73 92 03/01/21 07:56 38.2 C H 73 126/48 L 92 03/01/21 07:46 38.2 C H 73 93 03/01/21 07:44 38.2 C H 72 122/45 L 93 03/01/21 07:41 38.2 C H 73 93 03/01/21 07:30 38.2 C H 73 93 03/01/21 07:26 38.2 C H 72 80/65 L 91 03/01/21 07:15 38.2 C H 72 92 03/01/21 07:11 38.2 C H 72 105/48 L 92 03/01/21 07:00 38.2 C H 73 98/43 L 92 03/01/21 06:56 38.2 C H 72 91 03/01/21 06:45 38.2 C H 72 92 03/01/21 06:41 38.2 C H 72 111/45 L 92 03/01/21 06:30 38.2 C H 72 91 03/01/21 06:26 38.2 C H 72 138/45 L 91 03/01/21 06:15 38.2 C H 71 91 03/01/21 06:11 38.2 C H 72 125/48 L 91 03/01/21 06:00 38.3 C H 69 92 03/01/21 05:56 38.3 C H 70 126/44 L 91 03/01/21 05:41 38.3 C H 69 118/46 L 93 03/01/21 05:26 38.3 C H 70 128/49 L 95 03/01/21 05:11 38.3 C H 71 142/48 H 95 03/01/21 04:56 38.2 C H 70 125/49 L 92 03/01/21 04:41 38.3 C H 67 152/105 H 03/01/21 04:26 38.3 C H 70 144/48 H 94 03/01/21 04:11 38.2 C H 70 136/51 L 94 03/01/21 03:56 38.3 C H 69 118/47 L 94 03/01/21 03:41 38.3 C H 69 140/47 L 94 03/01/21 03:26 38.3 C H 69 122/43 L 94 03/01/21 03:11 38.4 C H 71 147/47 H 94 03/01/21 02:56 38.4 C H 71 131/48 L 94 03/01/21 02:50 71 20 94 03/01/21 02:41 38.4 C H 71 135/49 L 94 03/01/21 02:26 38.4 C H 72 136/50 L 94 03/01/21 02:11 38.5 C H 72 133/48 L 94 03/01/21 01:37 38.5 C H 74 139/53 L 94 03/01/21 01:22 38.6 C H 74 155/54 H 94 03/01/21 01:07 38.6 C H 74 134/65 93 03/01/21 00:52 38.5 C H 71 139/52 L 93 03/01/21 00:38 38.5 C H 73 141/53 H 93 03/01/21 00:22 38.5 C H 70 112/46 L 94 03/01/21 00:09 74 20 93 03/01/21 00:07 38.5 C H 74 145/56 H 93 PG Care Time/CCT Total # of Minutes Spent Total Time Spent with Patient: Total time spent is greater than 50% in coordination of care (as documented) at patient's floor/unit and/or counseling patient: Coding Level of Care Code 42300 Subseq Hosp Care Lvl 2 Diagnoses ESRD (end stage renal disease) N18.6
--- NOTE | 2021-03-01 14:18 | Critical Care Progress Note ---
Date of Service March 01, 2021 Assessment & Plan (1) Non-ST elevation (NSTEMI) myocardial infarction: (2) ESRD (end stage renal disease): (3) Acute hypoxemic respiratory failure: Impression: 71-year-old male with end-stage renal disease on dialysis, coronary disease, obesity and hypertension admitted with elevated troponin taken to the [facility] where he suffered respiratory arrest and had to be intubated. He is now hemodynamically unstable requiring vasopressor agents. 24-hour events: The patient was brought to the ICU post cardiac cath where he suffered a respiratory distress issue. He was on vasopressors. Overnight his vasopressors have been increased. Vasopressin was added as well as a dobutamine. His echo shows severe LV dysfunction with an EF of 25. The LAD territory appears hypokinetic to akinetic. He continues to be dependent on the ventilator. He has not been able to undergo dialysis due to hemodynamic instability. Family discussions were held including with the niece who is a palliative care nurse and has directed much of the patient's medical care. She clearly states that the patient did not want to be intubated and would not want life support. Recommendations: 1. Neurologic: Patient currently sedated with fentanyl Versed and propofol. Anticipate terminal extubation once family is available. 2. Cardiovascular: Status post PTCI. Echo with severely reduced LV function. Unfortunately his current blood pressures do not permit dialysis. See below. Unfortunately I believe this is likely to be a terminal event without transfer to a tertiary care facility. Not sure the patient is a candidate for a balloon pump or Impella device at this point time as it would be an unclear endpoint. The family is not interested in transferring him to higher level of care at this point time 3. Pulmonary: Hypoxemic respiratory failure: Continue mechanical ventilation until family is at bedside and then plan on terminal extubation 4. Renal: Unfortunately the patient is now on 2-3 vasopressor agents. I do not think he would tolerate dialysis here. If we are to pursue aggressive care I would recommend that he be transferred to a tertiary care facility for consideration of CVVH. After discussion with the niece who is a palliative care nurse and the at the bedside, they state that the patient's quality of life prior to this was quite poor. He was very frustrated at his inability to do things and according to the niece had deteriorated significantly over the last several years. She was actually surprised that the patient been intubated given his prior CODE STATUS of DO NOT RESUSCITATE. We discussed the alternative option to proceed with palliative care and comfort care measures which they are in agreement with. The niece is driving up from outside of [place] and should be here within the next several hours. It is anticipated that that point time we will transition the patient to comfort care measures and terminally ext ubate him. 5. ID: No current issues. The patient did vomit reportedly after the endotracheal tube was in place however there does not appear to be focal infiltrate. Hold antibiotics for now and continue to follow clinically. 6. Endocrine: Pharmacy consult for glycemic management. 7. Heme-onc: Continue to monitor hemoglobin and hematocrit. No indication for transfusion currently. 8. GI: Continue n.p.o. status in hopes of extubation within the next 12 to 24 hours. If not, may need to address enteral nutrition. 9. Subcu heparin for DVT prophylaxis. The patient is critically ill at this point time with significant probability of clinical deterioration. As noted above, plans are to proceed with transition to comfort care measures later today. Again the family is not interested in transfer to a tertiary care facility at this point in time and understands the gravity of the situation. Total of 75 minutes critical care time was spent in evaluation management stabilization of this patient including end-of-life issues. Multiple discussions with family members, cardiology, nephrology, and ICU bedside nurse as well as family members Admission and Anticipated Discharge Date Admission Date: February 27, 2021 Subjective Intubated and sedated. Review of Systems Review of Systems: Unobtainable due to endotracheal tube Physical Exam Constitutional: not in distress Eyes: PERRL, conjunctivae normal, anicteric sclerae ENMT: external ear and nose normal, oropharynx normal Neck: trachea midline, no thyromegaly Respiratory: normal respiratory effort Auscultation: + rales Cardiovascular: Rate/Rhythm: regular rate and regular rhythm Gastrointestinal (Abdomen): normal bowel sounds, soft, nontender, no hepatosplenomegaly Musculoskeletal: Extremities: no cyanosis Neurologic: awake; not confused Results & Data Results & Data ([facility]) Vital Signs (Past 12 Hours) Vital Signs Temp Pulse Resp BP Pulse Ox 03/01/21 11:08 70 17 92 03/01/21 10:00 38.3 C H 89 93 03/01/21 09:56 38.3 C H 73 128/47 L 93 03/01/21 09:45 38.3 C H 82 93 03/01/21 09:41 38.3 C H 73 122/46 L 93 03/01/21 09:30 38.3 C H 73 93 03/01/21 09:26 38.2 C H 72 120/44 L 93 03/01/21 09:15 38.2 C H 73 93 03/01/21 09:11 38.2 C H 74 123/47 L 93 03/01/21 09:04 38.2 C H 74 119/45 L 93 03/01/21 09:00 38.2 C H 73 92 03/01/21 08:56 38.2 C H 73 93 03/01/21 08:45 38.2 C H 73 94 03/01/21 08:41 38.2 C H 73 114/43 L 93 03/01/21 08:33 73 18 93 03/01/21 08:30 38.2 C H 73 93 03/01/21 08:26 38.2 C H 74 102/56 L 92 03/01/21 08:15 38.2 C H 73 92 03/01/21 08:11 38.2 C H 73 107/52 L 92 03/01/21 08:00 38.2 C H 73 92 03/01/21 07:56 38.2 C H 73 126/48 L 92 03/01/21 07:46 38.2 C H 73 93 03/01/21 07:44 38.2 C H 72 122/45 L 93 03/01/21 07:41 38.2 C H 73 93 03/01/21 07:30 38.2 C H 73 93 03/01/21 07:26 38.2 C H 72 80/65 L 91 03/01/21 07:15 38.2 C H 72 92 03/01/21 07:11 38.2 C H 72 105/48 L 92 03/01/21 07:00 38.2 C H 73 98/43 L 92 03/01/21 06:56 38.2 C H 72 91 03/01/21 06:45 38.2 C H 72 92 03/01/21 06:41 38.2 C H 72 111/45 L 92 03/01/21 06:30 38.2 C H 72 91 04/10/21 06:26 38.2 C H 72 138/45 L 91 03/01/21 06:15 38.2 C H 71 91 03/01/21 06:11 38.2 C H 72 125/48 L 91 03/01/21 06:00 38.3 C H 69 92 03/01/21 05:56 38.3 C H 70 126/44 L 91 03/01/21 05:41 38.3 C H 69 118/46 L 93 03/01/21 05:26 38.3 C H 70 128/49 L 95 03/01/21 05:11 38.3 C H 71 142/48 H 95 03/01/21 04:56 38.2 C H 70 125/49 L 92 03/01/21 04:41 38.3 C H 67 152/105 H 03/01/21 04:26 38.3 C H 70 144/48 H 94 03/01/21 04:11 38.2 C H 70 136/51 L 94 03/01/21 03:56 38.3 C H 69 118/47 L 94 03/01/21 03:41 38.3 C H 69 140/47 L 94 03/01/21 03:26 38.3 C H 69 122/43 L 94 03/01/21 03:11 38.4 C H 71 147/47 H 94 03/01/21 02:56 38.4 C H 71 131/48 L 94 03/01/21 02:50 71 20 94 03/01/21 02:41 38.4 C H 71 135/49 L 94 03/01/21 02:26 38.4 C H 72 136/50 L 94 03/01/21 02:11 38.5 C H 72 133/48 L 94 Laboratory Results 03/01/21 04:40 03/01/21 04:40 Diagnostic Findings Chest x-ray from today was independently reviewed. Endotracheal tube is in good position. There are hazy opacities more prominent at the left lung base with probable small pleural effusions. Echocardiogram shows an EF of 20 to 25% with no thrombus. Severe LV dysfunction. LAD territory hypokinetic to akinetic. Mild to moderate mitral regurgitation with elevated right atrial pressure estimated at 15. Aortic sclerosis without stenosis Coding Level of Care Code Critical Care 1st 30-74 mins Diagnoses Non-ST elevation (NSTEMI) myocardial infarction I21.4 ESRD (end stage renal disease) N18.6 Acute hypoxemic respiratory failure J96.01 Time Spent (min) 75 Comment [id number] and [id number]
[2021-03-01] MEDS ORDERED: ONDANSETRON 4 MG OD TAB SL PRN (14:42)
[2021-03-01] MEDS ORDERED: LORazepam 0.5 MG TAB PO PRN (14:42)
[2021-03-01] MEDS ORDERED: ONDANSETRON INJ 2 MG/ML 2 ML VIAL IV PRN (14:42)
[2021-03-01] MEDS: GLYCOPYRROLATE 0.2 MG/ML VIAL IV PRN ×3 (15:06→23:23)
[2021-03-01] MEDS: MoRPHine SULFATE 2 MG/ML CARP IV PRN ×4 (15:43→21:43)
[2021-03-01] MEDS: LORazepam 0.5 MG/1 ML VIAL IV PRN ×2 (19:32→23:22)
[2021-03-01] MEDS: MAX Conc 128mcg/mL; 32mg in 250mL IV SCH (20:09)
--- NOTE | 2021-03-01 20:17 | Hospitalist Progress Note ---
Date of Service March 01, 2021 Assessment & Plan (1) NSTEMI (non-ST elevated myocardial infarction): With recent mid LAD stent placed several days before readmission. Troponin 33 x2 upon admission Initially was treated with heparin drip and urgent dialysis for respiratory failure. Cardiology took for cardiac catheterization on 02/28-found to have severe multivessel disease, his previous mid LAD stents were patent; with moderate to severe distal left main/ostial LAD disease-stents placed in left main and LAD, left main and circumflex, as well as PCI of proximal to mid RCA with 2 overlapping drug-eluting stents. Also found to have new subtotally occluded small OM 2 Cardiac cath complicated by hypotension, cardiogenic shock, requiring vasopressors. Was intubated, sedated, and transferred to ICU post cath Suffered cardiogenic shock and was on 3 different vasopressors through the night of . Patient's family arrived at bedside and decision was made to pursue comfort measures especially in the setting of shock and inability to continue to receive hemodialysis. They did not want to transfer out for CRRT, and did not feel that his quality of life was good before this event and certainly would not be good afterwards. He was terminally extubated on the afternoon 03/01 and is now on comfort measures. Discontinue all medications, needlesticks, labs and rads Discontinue all medications except those for comfort i.e. morphine, Ativan, glycopyrrolate Appreciate cardiology and drying unit felting machine operator management (2) Hypotension: Secondary to cardiogenic shock Pursuing BILLING CONTROL CLERK as above (3) Acute hypoxemic respiratory failure: Secondary to acute on chronic systolic CHF due to NSTEMI Terminally extubated as above (4) ESRD (end stage renal disease): Nephrology consulted-had urgent dialysis on the evening of admission Not able to tolerate dialysis now status post cath with cardiogenic shock and hypotension. Patient's family does not wish for transfer for CRRT Transition to BILLING CONTROL CLERK as above (5) CHF (congestive heart failure): EF on echocardiogram is 20-25 % which is reduced from previous 30-35% on January 20. With severe hypo and akinesis Secondary to ischemic cardiomyopathy With elevated left and right-sided pressures on left and right heart cath BILLING CONTROL CLERK now (6) Coronary artery disease: As above (7) Hypertension: Discontinue all meds (8) Type 1 diabetes mellitus: Uncontrolled- with CAD, CKD, neuropathy, with hyperglycemia here in the 300s and was 400 on admission Was given IV insulin and then was managed with basal bolus insulin by pharmacy All medications and Accu-Cheks discontinued (9) Chronic low back pain: -Pain control with morphine as needed (10) Sleep apnea: (11) Chronic obstructive pulmonary disease: Discontinue all inhalers (12) Abnormal ECG: ECG irregular with RBBB- atrial tachycardia (13) Acute hyperkalemia: Potassium 5.9 No further treatment or labs (14) Obesity: BMI 44.6 (15) Paroxysmal supraventricular tachycardia: Previously on amiodarone drip during cardiac catheterization, currently in sinus rhythm (16) DVT prophylaxis: Was on heparin drip, now discontinued Heparin SQ given and now discontinued Disposition-transition to BILLING CONTROL CLERK, remain in ICU room as is imminent Care discussed with , [id number], [id number], and niece all at the bedside as well as with the drying unit felting machine operator Admission and Anticipated Discharge Date Admission Date: February 27, 2021 Subjective Patient seen earlier in the morning with and [id number] at the bedside. He remains sedated and mechanically ventilated, however has decided to pursue terminal extubation comfort care. She is awaiting for her niece to arrive from [place]. I came back later in the day after the niece had arrived and he had been extubated and appeared comfortable. Review of Systems Review of Systems: Unobtainable due to cognitive status and Unobtainable due to reduced consciousness Physical Exam Constitutional: WD/WN, vitals as above + morbidly obese and + mechanically ventilated Results & Data Results & Data ([facility]) Vital Signs (Past 12 Hours) Vital Signs Temp Pulse Resp BP Pulse Ox 03/01/21 17:00 38.1 C H 117 H 78 L 03/01/21 16:55 38.1 C H 80 111/71 89 L 03/01/21 16:30 38.1 C H 122 H 78 L 03/01/21 16:26 38.1 C H 83 92/53 L 88 L 03/01/21 16:00 38.1 C H 85 81 L 03/01/21 15:57 38.1 C H 79 87/54 L 87 L 03/01/21 15:30 38.0 C H 133 H 74 L 03/01/21 15:27 38.0 C H 88 99/49 L 91 04/10/21 15:22 38.0 C H 120 H 78/49 L 79 L 03/01/21 15:00 38.1 C H 161 H 78 L 03/01/21 14:41 38.1 C H 118 H 91/78 L 88 L 03/01/21 14:30 38.1 C H 67 91 03/01/21 14:27 38.1 C H 71 94/48 L 92 03/01/21 14:11 38.1 C H 71 92 03/01/21 14:00 38.1 C H 71 92 03/01/21 13:57 38.1 C H 71 108/45 L 92 03/01/21 13:41 38.1 C H 70 92 03/01/21 13:30 38.2 C H 70 92 03/01/21 13:26 38.2 C H 67 97/51 L 92 03/01/21 13:12 38.2 C H 70 116/41 L 92 03/01/21 13:00 38.2 C H 70 92 03/01/21 12:56 38.2 C H 70 92 03/01/21 12:41 38.2 C H 70 101/49 L 03/01/21 12:30 38.2 C H 69 92 03/01/21 12:26 38.2 C H 70 116/41 L 03/01/21 12:11 38.2 C H 70 98/43 L 03/01/21 12:07 38.2 C H 70 120/41 L 03/01/21 12:00 38.2 C H 70 92 03/01/21 11:56 38.2 C H 70 92 03/01/21 11:42 38.2 C H 70 103/41 L 03/01/21 11:30 38.3 C H 70 93 03/01/21 11:11 38.3 C H 70 134/38 L 03/01/21 11:08 70 17 92 03/01/21 11:00 38.3 C H 71 92 03/01/21 10:56 38.3 C H 71 117/47 L 03/01/21 10:41 38.3 C H 73 120/48 L 03/01/21 10:38 38.3 C H 73 107/46 L 93 03/01/21 10:30 38.3 C H 74 93 03/01/21 10:26 38.3 C H 73 94 03/01/21 10:11 38.3 C H 74 108/42 L 93 03/01/21 10:00 38.3 C H 89 93 03/01/21 09:56 38.3 C H 73 128/47 L 93 03/01/21 09:45 38.3 C H 82 93 03/01/21 09:41 38.3 C H 73 122/46 L 93 03/01/21 09:30 38.3 C H 73 93 03/01/21 09:26 38.2 C H 72 120/44 L 93 03/01/21 09:15 38.2 C H 73 93 03/01/21 09:11 38.2 C H 74 123/47 L 93 03/01/21 09:04 38.2 C H 74 119/45 L 93 03/01/21 09:00 38.2 C H 73 92 03/01/21 08:56 38.2 C H 73 93 03/01/21 08:45 38.2 C H 73 94 03/01/21 08:41 38.2 C H 73 114/43 L 93 03/01/21 08:33 73 18 93 03/01/21 08:30 38.2 C H 73 93 03/01/21 08:26 38.2 C H 74 102/56 L 92 03/01/21 08:15 38.2 C H 73 92 03/01/21 08:11 38.2 C H 73 107/52 L 92 Laboratory Results 03/01/21 03/01/21 03/01/21 Range/Units 11:07 07:43 05:42 WBC (4.8-10.8) K/uL RBC (4.7-6.1) M/uL Hgb (14.0-18.0) g/dL POC Hgb (14.0-18.0) g/dl Hct (42-52) % POC Hct (42-52) % MCV (80-100) fL MCH (25-34) pg MCHC (32-36) g/dL RDW Std Deviation (36.4-46.3) fL RDW Coeff of [place]var[place] (11.5-14.5) % Plt Count (130-400) K/uL MPV (7.4-10.4) fL Immature Gran % (Auto) % Neut % (Auto) % Lymph % (Auto) % [place] % (Auto) % Eos % (Auto) % Baso % (Auto) % Neut # (Auto) (1.4-6.5) K/uL Lymph # (Auto) (1.2-3.4) K/uL [place] # (Auto) (0.11-0.59) K/uL Eos # (Auto) (0-0.5) K/uL Baso # (Auto) (0-0.2) K/uL Immature Gran # (Auto) (0.00-0.02) K/uL PT (9.0-12.0) Seconds INR (0.9-1.1) APTT (21.0-31.0) Seconds PTT Ratio Fibrinogen (184-400) mg/dl POC pH (7.35-7.45) POC pCO2 (35-46) mmHg POC pO2 (80-95) mmHg POC HCO3 (19-24) yuli/L POC Total CO2 (24-31) mmol/L POC Base Excess (-9-1.8) yuli/L POC ABG O2 Sat (90-95) % Mixed VBG pH 7.33 L (7.35-7.45) Mixed VBG pCO2 42 (38-50) mmHg Mixed VBG pO2 39 L (80-95) mmHg Mixed VBG HCO3 22 (19-24) mmol/L Mixed VBG Base Excess -4.2 (-7.7-1.9) mEq/L Mixed VBG O2 Saturation 67.4 (68) % Barometric Pressure 731.7 mm/Hg POC Sodium (135-144) mmol/L Sodium (136-145) mmol/L POC Potassium (3.3-5.0) mmol/L Potassium (3.5-5.1) mmol/L Chloride (98-107) mmol/L Carbon Dioxide (21-32) mmol/L Anion Gap (3-11) BUN (7-18) mg/dl Creatinine (0.6-1.4) mg/dl Est Cr Clr Drug Dosing ml/min Est GFR ( Amer) Est GFR (Non-Af Amer) BUN/Creatinine Ratio (10-20) Glucose (70-99) mg/dl POC Glucose 106 H (70-99) mg/dl POC Glucose (other) 162 H (70-99) mg/dl Calcium (8.5-10.1) mg/dl Phosphorus (2.5-4.9) mg/dl Magnesium (1.8-2.4) mg/dl Beta-Hydroxybutyric Acd (0.2-2.81) mg/dl Blood Type Antibody Screen 03/01/21 03/01/21 03/01/21 Range/Units 04:40 04:40 04:40 WBC (4.8-10.8) K/uL RBC (4.7-6.1) M/uL Hgb (14.0-18.0) g/dL POC Hgb (14.0-18.0) g/dl Hct (42-52) % POC Hct (42-52) % MCV (80-100) fL MCH (25-34) pg MCHC (32-36) g/dL RDW Std Deviation (36.4-46.3) fL RDW Coeff of [place]var[place] (11.5-14.5) % Plt Count (130-400) K/uL MPV (7.4-10.4) fL Immature Gran % (Auto) % Neut % (Auto) % Lymph % (Auto) % [place] % (Auto) % Eos % (Auto) % Baso % (Auto) % Neut # (Auto) (1.4-6.5) K/uL Lymph # (Auto) (1.2-3.4) K/uL [place] # (Auto) (0.11-0.59) K/uL Eos # (Auto) (0-0.5) K/uL Baso # (Auto) (0-0.2) K/uL Immature Gran # (Auto) (0.00-0.02) K/uL PT (9.0-12.0) Seconds INR (0.9-1.1) APTT 26.5 (21.0-31.0) Seconds PTT Ratio 1.0 Fibrinogen (184-400) mg/dl POC pH (7.35-7.45) POC pCO2 (35-46) mmHg POC pO2 (80-95) mmHg POC HCO3 (19-24) yuli/L POC Total CO2 (24-31) mmol/L POC Base Excess (-9-1.8) yuli/L POC ABG O2 Sat (90-95) % Mixed VBG pH 7.33 L (7.35-7.45) Mixed VBG pCO2 42 (38-50) mmHg Mixed VBG pO2 40 L (80-95) mmHg Mixed VBG HCO3 22 (19-24) mmol/L Mixed VBG Base Excess -3.7 (-7.7-1.9) mEq/L Mixed VBG O2 Saturation 68.8 H (68) % Barometric Pressure 731.6 mm/Hg POC Sodium (135-144) mmol/L Sodium 132 L (136-145) mmol/L POC Potassium (3.3-5.0) mmol/L Potassium 4.9 (3.5-5.1) mmol/L Chloride 98 (98-107) mmol/L Carbon Dioxide 22 (21-32) mmol/L Anion Gap 12.0 H (3-11) BUN 94 H (7-18) mg/dl Creatinine 8.46 H* D (0.6-1.4) mg/dl Est Cr Clr Drug Dosing 12.5 ml/min Est GFR ( Amer) 6.6 Est GFR (Non-Af Amer) 5.7 BUN/Creatinine Ratio 11.1 (10-20) Glucose 187 H (70-99) mg/dl POC Glucose (70-99) mg/dl POC Glucose (other) (70-99) mg/dl Calcium 7.8 L (8.5-10.1) mg/dl Phosphorus 8.9 H D (2.5-4.9) mg/dl Magnesium 2.3 (1.8-2.4) mg/dl Beta-Hydroxybutyric Acd (0.2-2.81) mg/dl Blood Type Antibody Screen 03/01/21 03/01/21 03/01/21 Range/Units 04:40 03:08 00:25 WBC 9.21 (4.8-10.8) K/uL RBC 3.82 L (4.7-6.1) M/uL Hgb 10.9 L (14.0-18.0) g/dL POC Hgb 11.2 L (14.0-18.0) g/dl Hct 33.2 L (42-52) % POC Hct 33 L (42-52) % MCV 86.9 (80-100) fL MCH 28.5 (25-34) pg MCHC 32.8 (32-36) g/dL RDW Std Deviation 51.5 H (36.4-46.3) fL RDW Coeff of [place]varado 16.1 H (11.5-14.5) % Plt Count 133 (130-400) K/uL MPV 10.4 (7.4-10.4) fL Immature Gran % (Auto) 0.2 % Neut % (Auto) 69.1 % Lymph % (Auto) 12.7 % [place] % (Auto) 15.2 % Eos % (Auto) 2.7 % Baso % (Auto) 0.1 % Neut # (Auto) 6.36 (1.4-6.5) K/uL Lymph # (Auto) 1.17 L (1.2-3.4) K/uL [place] # (Auto) 1.40 H (0.11-0.59) K/uL Eos # (Auto) 0.25 (0-0.5) K/uL Baso # (Auto) 0.01 (0-0.2) K/uL Immature Gran # (Auto) 0.02 (0.00-0.02) K/uL PT (9.0-12.0) Seconds INR (0.9-1.1) APTT (21.0-31.0) Seconds PTT Ratio Fibrinogen (184-400) mg/dl POC pH 7.38 (7.35-7.45) POC pCO2 36 (35-46) mmHg POC pO2 67 L (80-95) mmHg POC HCO3 21 (19-24) yuli/L POC Total CO2 22 L (24-31) mmol/L POC Base Excess -4.0 (-9-1.8) yuli/L POC ABG O2 Sat 93.0 (90-95) % Mixed VBG pH (7.35-7.45) Mixed VBG pCO2 (38-50) mmHg Mixed VBG pO2 (80-95) mmHg Mixed VBG HCO3 (19-24) mmol/L Mixed VBG Base Excess (-7.7-1.9) mEq/L Mixed VBG O2 Saturation (68) % Barometric Pressure mm/Hg POC Sodium 130 L (135-144) mmol/L Sodium (136-145) mmol/L POC Potassium 4.8 (3.3-5.0) mmol/L Potassium (3.5-5.1) mmol/L Chloride (98-107) mmol/L Carbon Dioxide (21-32) mmol/L Anion Gap (3-11) BUN (7-18) mg/dl Creatinine (0.6-1.4) mg/dl Est Cr Clr Drug Dosing ml/min Est GFR ( Amer) Est GFR (Non-Af Amer) BUN/Creatinine Ratio (10-20) Glucose (70-99) mg/dl POC Glucose (70-99) mg/dl POC Glucose (other) 241 H (70-99) mg/dl Calcium (8.5-10.1) mg/dl Phosphorus (2.5-4.9) mg/dl Magnesium (1.8-2.4) mg/dl Beta-Hydroxybutyric Acd (0.2-2.81) mg/dl Blood Type Antibody Screen 02/28/21 02/28/21 02/28/21 Range/Units 22:45 22:45 22:40 WBC 10.38 (4.8-10.8) K/uL RBC 3.65 L (4.7-6.1) M/uL Hgb 10.6 L (14.0-18.0) g/dL POC Hgb (14.0-18.0) g/dl Hct 31.6 L (42-52) % POC Hct (42-52) % MCV 86.6 (80-100) fL MCH 29.0 (25-34) pg MCHC 33.5 (32-36) g/dL RDW Std Deviation 52.3 H (36.4-46.3) fL RDW Coeff of [place]var[place] 16.3 H (11.5-14.5) % Plt Count 154 (130-400) K/uL MPV 11.5 H (7.4-10.4) fL Immature Gran % (Auto) % Neut % (Auto) % Lymph % (Auto) % [place] % (Auto) % Eos % (Auto) % Baso % (Auto) % Neut # (Auto) (1.4-6.5) K/uL Lymph # (Auto) (1.2-3.4) K/uL [place] # (Auto) (0.11-0.59) K/uL Eos # (Auto) (0-0.5) K/uL Baso # (Auto) (0-0.2) K/uL Immature Gran # (Auto) (0.00-0.02) K/uL PT 10.6 (9.0-12.0) Seconds INR 1.0 (0.9-1.1) APTT 29.1 (21.0-31.0) Seconds PTT Ratio 1.1 Fibrinogen 474 H (184-400) mg/dl POC pH (7.35-7.45) POC pCO2 (35-46) mmHg POC pO2 (80-95) mmHg POC HCO3 (19-24) yuli/L POC Total CO2 (24-31) mmol/L POC Base Excess (-9-1.8) yuli/L POC ABG O2 Sat (90-95) % Mixed VBG pH (7.35-7.45) Mixed VBG pCO2 (38-50) mmHg Mixed VBG pO2 (80-95) mmHg Mixed VBG HCO3 (19-24) mmol/L Mixed VBG Base Excess (-7.7-1.9) mEq/L Mixed VBG O2 Saturation (68) % Barometric Pressure mm/Hg POC Sodium (135-144) mmol/L Sodium (136-145) mmol/L POC Potassium (3.3-5.0) mmol/L Potassium (3.5-5.1) mmol/L Chloride (98-107) mmol/L Carbon Dioxide (21-32) mmol/L Anion Gap (3-11) BUN (7-18) mg/dl Creatinine (0.6-1.4) mg/dl Est Cr Clr Drug Dosing ml/min Est GFR ( Amer) Est GFR (Non-Af Amer) BUN/Creatinine Ratio (10-20) Glucose (70-99) mg/dl POC Glucose (70-99) mg/dl POC Glucose (other) (70-99) mg/dl Calcium (8.5-10.1) mg/dl Phosphorus (2.5-4.9) mg/dl Magnesium (1.8-2.4) mg/dl Beta-Hydroxybutyric Acd (0.2-2.81) mg/dl Blood Type O Positive Antibody Screen NEGATIVE 02/28/21 02/28/21 02/28/21 Range/Units 20:28 20:22 20:03 WBC (4.8-10.8) K/uL RBC (4.7-6.1) M/uL Hgb (14.0-18.0) g/dL POC Hgb (14.0-18.0) g/dl Hct (42-52) % POC Hct (42-52) % MCV (80-100) fL MCH (25-34) pg MCHC (32-36) g/dL RDW Std Deviation (36.4-46.3) fL RDW Coeff of [place]var[place] (11.5-14.5) % Plt Count (130-400) K/uL MPV (7.4-10.4) fL Immature Gran % (Auto) % Neut % (Auto) % Lymph % (Auto) % [place] % (Auto) % Eos % (Auto) % Baso % (Auto) % Neut # (Auto) (1.4-6.5) K/uL Lymph # (Auto) (1.2-3.4) K/uL [place] # (Auto) (0.11-0.59) K/uL Eos # (Auto) (0-0.5) K/uL Baso # (Auto) (0-0.2) K/uL Immature Gran # (Auto) (0.00-0.02) K/uL PT (9.0-12.0) Seconds INR (0.9-1.1) APTT (21.0-31.0) Seconds PTT Ratio Fibrinogen (184-400) mg/dl POC pH (7.35-7.45) POC pCO2 (35-46) mmHg POC pO2 (80-95) mmHg POC HCO3 (19-24) yuli/L POC Total CO2 (24-31) mmol/L POC Base Excess (-9-1.8) yuli/L POC ABG O2 Sat (90-95) % Mixed VBG pH 7.31 L (7.35-7.45) Mixed VBG pCO2 45 (38-50) mmHg Mixed VBG pO2 40 L (80-95) mmHg Mixed VBG HCO3 22 (19-24) mmol/L Mixed VBG Base Excess -4.5 (-7.7-1.9) mEq/L Mixed VBG O2 Saturation 68.7 H (68) % Barometric Pressure 733.1 mm/Hg POC Sodium (135-144) mmol/L Sodium 128 L (136-145) mmol/L POC Potassium (3.3-5.0) mmol/L Potassium 5.6 H (3.5-5.1) mmol/L Chloride 94 L (98-107) mmol/L Carbon Dioxide 20 L (21-32) mmol/L Anion Gap 14.0 H (3-11) BUN 93 H (7-18) mg/dl Creatinine 8.14 H* (0.6-1.4) mg/dl Est Cr Clr Drug Dosing 13.2 ml/min Est GFR ( Amer) 6.9 Est GFR (Non-Af Amer) 5.9 BUN/Creatinine Ratio 11.5 (10-20) Glucose 384 H* (70-99) mg/dl POC Glucose (70-99) mg/dl POC Glucose (other) 381 H* (70-99) mg/dl Calcium 7.7 L (8.5-10.1) mg/dl Phosphorus (2.5-4.9) mg/dl Magnesium (1.8-2.4) mg/dl Beta-Hydroxybutyric Acd 1.13 (0.2-2.81) mg/dl Blood Type Antibody Screen 02/28/21 Range/Units 18:55 WBC (4.8-10.8) K/uL RBC (4.7-6.1) M/uL Hgb (14.0-18.0) g/dL POC Hgb (14.0-18.0) g/dl Hct (42-52) % POC Hct (42-52) % MCV (80-100) fL MCH (25-34) pg MCHC (32-36) g/dL RDW Std Deviation (36.4-46.3) fL RDW Coeff of [place]var[place] (11.5-14.5) % Plt Count (130-400) K/uL MPV (7.4-10.4) fL Immature Gran % (Auto) % Neut % (Auto) % Lymph % (Auto) % [place] % (Auto) % Eos % (Auto) % Baso % (Auto) % Neut # (Auto) (1.4-6.5) K/uL Lymph # (Auto) (1.2-3.4) K/uL [place] # (Auto) (0.11-0.59) K/uL Eos # (Auto) (0-0.5) K/uL Baso # (Auto) (0-0.2) K/uL Immature Gran # (Auto) (0.00-0.02) K/uL PT (9.0-12.0) Seconds INR (0.9-1.1) APTT (21.0-31.0) Seconds PTT Ratio Fibrinogen (184-400) mg/dl POC pH (7.35-7.45) POC pCO2 (35-46) mmHg POC pO2 (80-95) mmHg POC HCO3 (19-24) yuli/L POC Total CO2 (24-31) mmol/L POC Base Excess (-9-1.8) yuli/L POC ABG O2 Sat (90-95) % Mixed VBG pH (7.35-7.45) Mixed VBG pCO2 (38-50) mmHg Mixed VBG pO2 (80-95) mmHg Mixed VBG HCO3 (19-24) mmol/L Mixed VBG Base Excess (-7.7-1.9) mEq/L Mixed VBG O2 Saturation (68) % Barometric Pressure mm/Hg POC Sodium (135-144) mmol/L Sodium (136-145) mmol/L POC Potassium (3.3-5.0) mmol/L Potassium (3.5-5.1) mmol/L Chloride (98-107) mmol/L Carbon Dioxide (21-32) mmol/L Anion Gap (3-11) BUN (7-18) mg/dl Creatinine (0.6-1.4) mg/dl Est Cr Clr Drug Dosing ml/min Est GFR ( Amer) Est GFR (Non-Af Amer) BUN/Creatinine Ratio (10-20) Glucose (70-99) mg/dl POC Glucose (70-99) mg/dl POC Glucose (other) 389 H* (70-99) mg/dl Calcium (8.5-10.1) mg/dl Phosphorus (2.5-4.9) mg/dl Magnesium (1.8-2.4) mg/dl Beta-Hydroxybutyric Acd (0.2-2.81) mg/dl Blood Type Antibody Screen Diagnostic Findings Chest X-Ray 03/01/21 07:00 XR chest 1V portable CLINICAL HISTORY: Respiratory failure. COMPARISON STUDY: Chest radiograph February 28, 2021 at 3:16 PM. FINDINGS: Tip of endotracheal tube is 4.9 cm above the juan. A catheter projects over the mediastinum likely via a femoral approach. Tip of nasogastric tube projects over the gastric cardia. There is no pneumothorax. Bilateral pleural effusions are present with bibasilar opacities. Interstitial thickening consistent with pulmonary edema persists. IMPRESSION: 1. Tip of endotracheal tube 4.9 cm above the juan. 2. Bilateral pleural effusions with bibasilar opacities. 3. Persistent pulmonary edema. ACT 112: Negative or not required by law. Electronically signed by: Ramon Case M.D. 03/01/2021 8:15 AM PG Care Time/CCT Total # of Minutes Spent Total Time Spent with Patient: Total time spent is greater than 50% in coordination of care (as documented) at patient's floor/unit and/or counseling patient: Coding Level of Care Code 07221 Subseq Hosp Care Lvl 2 Diagnoses NSTEMI (non-ST elevated myocardial infarction) I21.4 Hypotension I95.9 Acute hypoxemic respiratory failure J96.01 ESRD (end stage renal disease) N18.6 CHF (congestive heart failure) I50.9 Coronary artery disease I25.10 Coronary Disease-Associated Artery/Lesion type: [place] artery [place] vs. transplanted heart: [place] heart Associated angina: without angina Hypertension I10 Hypertension type: essential hypertension Type 1 diabetes mellitus E10.69 Diabetes mellitus complication status: with other specified complication Chronic low back pain M54.40; G89.29 Back pain laterality: unspecified Sciatica presence: with sciatica Sciatica laterality: sciatica laterality unspecified Sleep apnea G47.33 Sleep apnea type: obstructive Chronic obstructive pulmonary disease J44.9 COPD type: unspecified COPD Abnormal ECG R94.31 Acute hyperkalemia E87.5 Obesity E66.9 Obesity type: due to excess calories Serious obesity comorbidity presence: with serious comorbidity Paroxysmal supraventricular tachycardia I47.1 DVT prophylaxis Z29.9 (1) Coronary artery disease Coronary Disease-Associated Artery/Lesion type: [place] artery [place] vs. transplanted heart: [place] heart Associated angina: without angina Qualified Code(s): I25.10 - Atherosclerotic heart disease of [place] coronary artery without angina pectoris (2) Hypertension Hypertension type: essential hypertension Qualified Code(s): I10 - Essential (primary) hypertension (3) Type 1 diabetes mellitus Diabetes mellitus complication status: with other specified complication Qualified Code(s): E10.69 - Type 1 diabetes mellitus with other specified complication (4) Chronic low back pain Back pain laterality: unspecified Sciatica presence: with sciatica Sciatica laterality: sciatica laterality unspecified Qualified Code(s): M54.40 - Lumbago with sciatica, unspecified side; G89.29 - Other chronic pain (5) Sleep apnea Sleep apnea type: obstructive Qualified Code(s): G47.33 - Obstructive sleep apnea (adult) (pediatric) (6) Chronic obstructive pulmonary disease COPD type: unspecified COPD Qualified Code(s): J44.9 - Chronic obstructive pulmonary disease, unspecified (7) Obesity Obesity type: due to excess calories Serious obesity comorbidity presence: with serious comorbidity
[2021-03-02] MEDS: MoRPHine SULFATE 2 MG/ML CARP IV PRN ×3 (00:33→05:11)
[2021-03-02] MEDS: fentaNYL DRIP 1,250 MCG/250 ML BAG IV SCH ×2 (02:22→04:00)
[2021-03-02] MEDS: LORazepam 0.5 MG/1 ML VIAL IV PRN (04:28)
[2021-03-02] MEDS: GLYCOPYRROLATE 0.2 MG/ML VIAL IV PRN (04:28)
--- NOTE | 2021-03-02 07:49 | Critical Care Progress Note ---
Date of Service March 02, 2021 Assessment & Plan (1) Non-ST elevation (NSTEMI) myocardial infarction: (2) ESRD (end stage renal disease): (3) Acute hypoxemic respiratory failure: Impression: 71-year-old male with end-stage renal disease on dialysis, coronary disease, obesity and hypertension admitted with elevated troponin taken to [facility] where he suffered respiratory arrest and had to be intubated. He is now hemodynamically unstable requiring vasopressor agents. 24-hour events: After extensive discussions, family has elected to pursue comfort measures. Patient was terminally extubated. He maintains on fentanyl infusions. Recommendations: Comfort care measures discussed with family at bedside. We have appropriate orders in place to sure patient comfort. I he appears to have agonal respirations at this point time. I anticipate that he will likely pass shortly. If it looks like this could be prolonged, could consider transfer to the floor however again I suspect that's is imminent. 35 minutes critical care time including end-of-life discussions with family and ICU bedside nurse Admission and Anticipated Discharge Date Admission Date: February 27, 2021 Subjective Patient sedated. His respirations appear agonal. He appears comfortable. Review of Systems Review of Systems: Unobtainable due to reduced consciousness Physical Exam Physical Exam: Exam deferred due to comfort measures Results & Data Results & Data ([facility]) Vital Signs (Past 12 Hours) Vital Signs Pulse 03/02/21 00:06 78 03/01/21 20:00 121 H Coding Level of Care Code Critical Care 1st 30-74 mins Diagnoses Non-ST elevation (NSTEMI) myocardial infarction I21.4 ESRD (end stage renal disease) N18.6 Acute hypoxemic respiratory failure J96.01 Time Spent (min) 35
--- NOTE | 2021-03-02 08:19 | Death Pronouncement Note ---
Date of Service March 02, 2021 Pronouncement Note Admission Date Admission Date: February 27, 2021 Date and Time of Date of : 03/02/21 Time of : 07:55 PCOD Preliminary cause of : NSTEMI, initial episode of care Contributing Factors (1) Non-ST elevation (NSTEMI) myocardial infarction: (2) ESRD (end stage renal disease): (3) Acute hypoxemic respiratory failure: Hospital Course Hospital Course: see discharge summary Summary Additional details: see discharge summary Additional Data Confirmation of : no pulse, no respirations, no heart sounds and pupils fixed and dilated Family: at bedside Attending/PCP notified?: Yes Attending physician: Berkley Simpson MD Was code activated?: No Autopsy requested?: No license registration examiner notified?: No Coding Level of Care Code None Diagnoses Non-ST elevation (NSTEMI) myocardial infarction I21.4 ESRD (end stage renal disease) N18.6 Acute hypoxemic respiratory failure J96.01
--- NOTE | 2021-03-02 08:25 | Discharge Summary ---
Date of Service March 02, 2021 Admission HPI Per Admitting Provider 70 YOM with past medical history of COVID, NSTEMI, CABG, CAD with 2 JACOB stents on February, ICM, Sciatica, Lumbar radiculopathy, HTN, DM on insulin, COPD, HLD, Obesity, DRAKE. Patient came to the emergency room today following dialysis where he had to stop after 2 hours secondary to his sciatica pain. He then experienced some chest tightness lower left breast, and some dyspnea. He then went home and felt dizzy so his made him come to the EMD. In the ER he again was short of breath, was placed on BiPAP, and troponin were checked. His Troponin level was 33 and he was started on a Heparin drip, EMD provider discussed the case with Dr. Muñoz. Patient also with weight gain and edema to his lower extremities, which is likely chronic and acute since he did not finish dialysis today. We have also contacted nephrology to evaluate to continue dialysis for current symptom of dyspnea and hyperkalemia as well. The patient is hyperglycemic at 400 on my evaluation with no gap. The patient will be admitted to telemetry, continue to evaluate troponin, heparin drip with his current DAPT, Bipap support and following acid/base/renal support. Principal Diagnosis NSTEMI Discharge Exam Constitutional See pronouncement note for physical exam on same DOS Discharge Data Allergies Allergy/AdvReac Type Severity Reaction Status Date / Time No Known Drug Allergies Allergy Unknown Verified 02/27/21 17:26 Consultations 02/27/21 17:00 ED Decision to Admit Stat 02/27/21 18:40 Consult Nephrology Stat 02/27/21 22:28 Consult Cardiology Routine 02/28/21 14:50 Consult Retirement Plan Specialist Routine 02/28/21 14:50 Consult Retirement Plan Specialist Stat 03/01/21 14:42 Consult Palliative Care Routine Procedures Performed Operation Date: 02/28/21 11:00 Actual Procedures p Cineradiography w/Routine Exam - Nathan Muñoz MD s Drug Eluting Stent each ADDTL Vessel - Nathan Muñoz MD s Drug Eluting Stent SGl Vessel - Nathan Muñoz MD s IVUS Coronary Single Vessel - Nathan Muñoz MD s IVUS Coronary each ADDL Vessel - Nathan Muñoz MD s Ultrasound Vascular Access - Nathan Muñoz MD p Cath, Right and Left Heart - Nathan Muñoz MD Ordered Studies 02/28/21 10:21 CL Cath Imgs for PACS use only Routine 02/28/21 15:02 CL IVUS Coronary Single Vessel Routine CXR x 3 ECHO x 2 Hospital Course (1) NSTEMI (non-ST elevated myocardial infarction): With recent mid LAD stent placed several days before readmission. Troponin 33 x2 upon admission Initially was treated with heparin drip and urgent dialysis for respiratory failure. Cardiology took for cardiac catheterization on 02/28-found to have severe multivessel disease, his previous mid LAD stents were patent; with moderate to severe distal left main/ostial LAD disease-stents placed in left main and LAD, left main and circumflex, as well as PCI of proximal to mid RCA with 2 overlapping drug-eluting stents. Also found to have new subtotally occluded small OM 2 Cardiac cath complicated by hypotension, cardiogenic shock, requiring vasopressors. Was intubated, sedated, and transferred to ICU post cath Suffered cardiogenic shock and was on 3 different vasopressors through the night of . Patient's family arrived at bedside and decision was made to pursue comfort measures especially in the setting of shock and inability to continue to receive hemodialysis. They did not want to transfer out for CRRT, and did not feel that his quality of life was good before this event and certainly would not be good afterwards. He was terminally extubated on the afternoon 03/01 and was placed on comfort measures. He peacefully at 0755 on 03/02/21 Appreciate cardiology and planning rn management (2) Acute hypoxemic respiratory failure: Secondary to acute on chronic systolic CHF due to NSTEMI Terminally extubated as above (3) CHF (congestive heart failure): EF on echocardiogram is 20-25 % which is reduced from previous 30-35% on January 20. With severe hypo and akinesis Secondary to ischemic cardiomyopathy With elevated left and right-sided pressures on left and right heart cath (4) Hypotension: Secondary to cardiogenic shock FUNERAL SERVICE PRACTITIONER/EMBALMER as above (5) Acute hyperkalemia: Potassium 5.9 No further treatment or labs due to comfort measures only (6) Abnormal ECG: ECG irregular with RBBB- atrial tachycardia (7) ESRD (end stage renal disease): Nephrology consulted-had urgent dialysis on the evening of admission Not able to tolerate dialysis now status post cath with cardiogenic shock and hypotension. Patient's family does not wish for transfer for CRRT Transitioned to FUNERAL SERVICE PRACTITIONER/EMBALMER as above (8) Coronary artery disease: As above (9) Hypertension: Discontinued all meds (10) Type 1 diabetes mellitus: Uncontrolled- with CAD, CKD, neuropathy, with hyperglycemia here in the 300s and was 400 on admission Was given IV insulin and then was managed with basal bolus insulin by pharmacy All medications and Accu-Cheks discontinued (11) DRAKE (obstructive sleep apnea): (12) BPH with obstruction/lower urinary tract symptoms: (13) Chronic obstructive pulmonary disease: Discontinue all inhalers (14) Dyslipidemia: (15) PAD (peripheral artery disease): (16) DVT prophylaxis: Was on heparin drip, now discontinued Heparin SQ given and now discontinued Disposition- as above on 03/02 Condolences given to , [id number]-av-[id number], [id number] all at the bedside at time of pronouncement Total Time Total Time Spent Total Time Spent (In Minutes): 20 min Total Time Includes: Examination of the Patient Discharge Plan Discharge Items Reason For Visit: NSTEMI Medications and DC Order Prescriptions: No Action Novolog U-100 Insulin aspart 100 unit/mL solution 180 unit subcut DAILY RF: 0 carvedilol 25 mg tablet 25 mg PO TID Qty: 270 RF: 3 Anoro Ellipta 62.5-25 mcg/actuation blister with device 1 puffs INH DAILY Qty: 60 RF: 5 Novolin N NPH U-100 Insulin 100 unit/mL suspension 180 unit subcut .COMPLEX 90 Days Qty: 170 RF: 3 losartan 100 mg tablet 100 mg PO DAILY Qty: 30 RF: 5 amlodipine 10 mg tablet 10 mg PO DAILY Qty: 90 RF: 3 atorvastatin 80 mg tablet 80 mg PO DAILY Qty: 90 RF: 3 ergocalciferol (vitamin D2) 1,250 mcg (50,000 unit) capsule 50,000 unit PO .COMPLEX Qty: 3 RF: 3 pregabalin 50 mg capsule 50 mg PO DAILY Qty: 30 RF: 5 nortriptyline 50 mg capsule 50 mg PO HS Qty: 90 RF: 3 nitroglycerin 0.4 mg tablet, sublingual 0.4 mg SL Q5M PRN (Reason: chest pain) Qty: 25 RF: 0 ipratropium-albuterol 0.5 mg-3 mg(2.5 mg base)/3 mL solution for nebulization 3 ml inhalation Q4H PRN (Reason: shortness of breath or wheezing) Qty: 2 RF: 0 (DME) OneTouch Ultra Blue Test Strip Strip See Dose Instructions .ROUTE .MEDSUPPLY Qty: 10 RF: 0 (DME) BD Eclipse Luer-Ashok 3 mL 25 x 5/8" syringe See Dose Instructions .ROUTE .MEDSUPPLY Qty: 1 RF: 0 sodium bicarbonate 650 mg tablet 650 mg PO DAILY Qty: 60 RF: 5 (DME) CPAP Machine Misc See Rx Instructions .ROUTE .MEDSUPPLY Qty: 1 RF: 0 methocarbamol 500 mg tablet 500 mg PO TID PRN (Reason: pain) Qty: 90 RF: 1 meclizine 25 mg tablet 25 mg PO TID PRN (Reason: dizziness) Qty: 30 RF: 5 methylprednisolone 4 mg tablets,dose pack 4 mg PO .COMPLEX Qty: 21 RF: 0 isosorbide mononitrate 120 mg tablet extended release 24 hr 120 mg PO DAILY Qty: 30 RF: 2 omeprazole 20 mg capsule,delayed release(DR/EC) 20 mg PO DAILY RF: 0 finasteride 5 mg tablet 5 mg PO DAILY RF: 0 Brilinta 90 mg Tablet 90 mg PO BID@0600,1800 Qty: 60 RF: 11 Renal Caps 1 mg Capsule 1 cap PO QAM Qty: 30 RF: 1 spironolactone 25 mg tablet 25 mg PO DAILY RF: 0 aspirin [Aspirin Low Dose] 81 mg Tablet,Delayed Release (Dr/Ec) 81 mg PO DAILY RF: 0 albuterol sulfate 90 mcg/actuation Hfa Aerosol Inhaler 2 puff INHALATION Q6H PRN (Reason: Shortness Of Breath Or Wheezing) RF: 0 Admission Data Admit Date/Time: 02/27/21 20:12 Attending Provider: Berkley Simpson Admit Provider: Andreas Mejias Primary Care Provider: Nathan Peoples Other Providers: Zack Nuñez ; Andreas Mejias ; Erik Lopez ; Nathan Barron ; Evie Sheldon Coding Level of Care Code D/C Day Management <30 mins Diagnoses NSTEMI (non-ST elevated myocardial infarction) I21.4 Acute hypoxemic respiratory failure J96.01 CHF (congestive heart failure) I50.9 Hypotension I95.9 Acute hyperkalemia E87.5 Abnormal ECG R94.31 ESRD (end stage renal disease) N18.6 Coronary artery disease I25.10 Associated angina: without angina Coronary Disease-Associated Artery/Lesion type: [place] artery [place] vs. transplanted heart: [place] heart Hypertension I10 Hypertension type: essential hypertension Type 1 diabetes mellitus E10.69 Diabetes mellitus complication status: with other specified complication DRAKE (obstructive sleep apnea) G47.33 BPH with obstruction/lower urinary tract symptoms N40.1; N13.8 Chronic obstructive pulmonary disease J44.9 COPD type: unspecified COPD Dyslipidemia E78.5 PAD (peripheral artery disease) I73.9 DVT prophylaxis Z29.9
--- NOTE | 2021-03-03 06:11 | Electrocardiogram Report ---
Test Reason : Blood Pressure : / mmHG Vent. Rate : 074 BPM Atrial Rate : 074 BPM P-R Int : 166 ms QRS Dur : 152 ms QT Int : 420 ms P-R-T Axes : 027 139 -41 degrees QTc Int : 466 ms Normal sinus rhythm Right bundle branch block Cannot rule out Inferior infarct , age undetermined Possible Anterior infarct Abnormal ECG When compared with ECG of 28-FEB-2021 22:13, No significant change Confirmed by Manpreet Wang ([id number]) on 03/03/2021 6:10:34 AM Referred By: REFERRED SELF Confirmed By:Manpreet Wang
[2021-03-06] MEDS ORDERED: ERGOCALCIFEROL 50,000 UNITS 1250 MCG CAP PO SCH (09:00)
--- NOTE | 2021-03-16 14:07 | Coding Query ---
CODING QUERY To promote full compliance with coding requirements relating to patient care, provider participation is requested in all cases of bone worker uncertainty. Please assist us with the question(s) below: Coding Question(s): The Cardiac Catheterization report documents under Procedural Complications, "Cardiogenic shock, respiratory failure" and the Discharge Summary documents, "Cardiac cath complicated by hypotension, cardiogenic shock". Please specify below, in your clinical opinion, regarding Cardiogenic Shock, Respiratory Failure, and Hypotension". CARDIOGENIC SHOCK ( ) this is likely a Postprocedural Complication ( ) this is likely an Intra-operative Complication ( ) this is Not a Complication of the procedure ( ) Other: Please Specify RESPIRATORY FAILURE ( ) this is likely a Postprocedural Complication ( ) this is likely an Intra-operative Complication ( ) this is Not a Complication of the procedure ( ) Other: Please Specify HYPOTENSION ( ) this is likely a Postprocedural Complication ( ) this is likely an Intra-operative Complication ( ) this is Not a Complication of the procedure ( ) Other: Please Specify Physician's Response(s): Thank you Marisol Enciso Principal Diagnosis: "that condition established after study, to be chiefly responsible for occasioning the admission of the patient to the hospital for care." Co-Existing Principal Diagnosis: "when two or more diagnoses equally meet the criteria for principal diagnosis as determined by the circumstances of admission, diagnostic work up, and/or therapy provided, and the Alphabetic Index, Tabular List, or another coding guideline does not provide sequencing direction, any one of the diagnoses may be sequenced first." "When the physician has documented what appears to be a current diagnosis in the body of the record, but has not included the diagnosis in the final diagnostic statement, the physician should be asked whether the diagnosis should be added." ([facility] 2 QTR90. p3-4) BABAK
--- NOTE | 2021-04-08 08:00 | Coding Query ---
I do not recall ever seeing this patient...and I cannot locate any note in medical record that I saw this patiens. [facility] CODING QUERY To promote full compliance with coding requirements relating to patient care, provider participation is requested in all cases of event attendant uncertainty. Please assist us with the question(s) below: Coding Question(s): There is documentation in the record the 03/17 Orthopedic Consultation and on the 03/18 Operative Report of, "Infection associated with internal fixation device of left tibia", and on the 03/19 Critical Care Consultation of, "Sepsissource likely infected hardware", and documentation on Discharge Summary of, "Sepsisafter further review, was in fact septic ankle/incisional infectionthis has been cleared out operatively, MSSA". Please specify below, in your clinical opinion, regarding the Infection. ( ) Infection due to internal fixation device of left tibia and/or infected hardware ( ) septic ankle/incisional infection - postoperative complication ( ) Both infection due to internal fixation device fo left tibia and septic ankle/incisional infection ( ) Other: Please Specify Physician's Response(s): Thank you Marisol Enciso Principal Diagnosis: "that condition established after study, to be chiefly responsible for occasioning the admission of the patient to the hospital for care." Co-Existing Principal Diagnosis: "when two or more diagnoses equally meet the criteria for principal diagnosis as determined by the circumstances of admission, diagnostic work up, and/or therapy provided, and the Alphabetic Index, Tabular List, or another coding guideline does not provide sequencing direction, any one of the diagnoses may be sequenced first." "When the physician has documented what appears to be a current diagnosis in the body of the record, but has not included the diagnosis in the final diagnostic statement, the physician should be asked whether the diagnosis should be added." ([facility] 2 QTR90. p3-4) BABAK
== END 2021-03-02 09:39 | disposition expired | DRG 246 ==
LOC: ED 15:13 → 2W 20:12 → SUATTDRO 20:12 → 2W 21:10 → 1E 02-28 14:26